=== PATIENT | female | born 1945 | race Caucasian/White ===

== ENCOUNTER → 2016-11-12 | Outpatient (CLI) | payer MEDICARE, OTHER ==
[2016-11-12 13:30] VITALS: BP 129/80
[2016-11-12 14:10] VITALS: BP 129/80
[2016-11-12 16:24] LABS: Urine Bilirubin Negative (Negative); Urine Blood Negative /uL (Negative); Urine Color Yellow (Yellow); Urine Glucose Normal (Normal); Urine Ketone Negative (Negative); Urine Nitrite Negative (Negative); Urine Urobilinogen Normal (Negative)
[2016-11-12 16:28] LABS: Basophils # (auto) 0.1 uL; Eosinophils # (auto) 0.2 uL; Eosinophils % (auto) 3.2 % (0.0-7.0); Hematocrit 43.7 % (36.0-46.0); Hemoglobin 14.5 g/dL (12.2-16.2); Lymphocytes # (auto) 2.2 uL; Lymphocytes % (auto) 28.3 % (10.0-50.0); Mean Corpuscular Hemoglobin 28.8 pg (28.0-32.0); Mean Platelet Volume 8.4 fL (6.9-10.8); Monocytes # (auto) 0.8 uL; Monocytes % (auto) 11.1 % (0.0-12.0); Neutrophils # (auto) 4.3 uL; Neutrophils % (auto) 56.4 % (37.0-80.0); Nucleated Red Blood Cells % 0.2 %; Platelet Count (auto) 258 10^3/uL (140-450); Red Cell Distribution Width 15.4 % (11.8-14.3); White Blood Cell 7.7 10^3/uL (4.4-10.8)
== END | disposition home or self-care (01) ==
LOC: CHF HDHVI 13:43
PROVIDERS: ATTEND Internal Medicine Cardiovascular Disease
DX: N39.0 Urinary tract infection, site not specified (principal); D64.9 Anemia, unspecified
CPT/HCPCS: 36415; 81003; 85025; 87086; G0463

== ENCOUNTER 2023-08-26 14:09 | Inpatient (IN) | payer MEDICARE, OTHER ==
[~2023-08-26] VITALS: Ht 171.4 cm; Wt 83.3 kg
[~2023-08-26 14:09] MED LIST: ACET300T58 PO; MUPI2OIN2 EXT; SULF1TAB75 PO
[2023-08-26] MEDS: SODIUM CHLORIDE 0.9% 1,000 ML IV ONE (14:45)
[2023-08-26 15:57] LABS: Basophils # (auto) 0.1 10 ^3/uL (0-0.2); Basophils % (auto) 0.8 % (0.0-2.0); Eosinophils # (auto) 0.1 10 ^3/uL (0-0.8); Eosinophils % (auto) 0.7 % (0.0-7.0); Hematocrit 42.9 % (36.0-46.0); Lymphocytes # (auto) 1.4 10 ^3/uL (0.4-5.4); Mean Corpuscular Hgb Conc. 32.6 g/dL (32.0-36.0); Mean Corpuscular Volume 82.8 fL (80.0-100.0); Monocytes # (auto) 2.1 10 ^3/uL (0-1.3); Monocytes % (auto) 14.5 % (0.0-12.0); Neutrophils # (auto) 10.6 10 ^3/uL (1.6-8.6); Nucleated Red Blood Cells % 0.1 %; Red Blood Cells 5.19 10^6/uL (4.0-5.20); Red Cell Distribution Width 16.9 % (11.8-14.3); White Blood Cell 14.4 10^3/uL (4.4-10.8)
[2023-08-26 16:16] LABS: Chloride 99 mmol/L (98-107); Potassium 3.6 mmol/L (3.5-5.1); Sodium 130 mmol/L (136-145)
[2023-08-26 16:17] LABS: Anion Gap 10 (5-15); Carbon Dioxide 21 mmol/L (20-30)
[2023-08-26 16:18] LABS: Calcium 9.3 mg/dL (8.5-10.1)
[2023-08-26 16:22] LABS: Glucose 122 mg/dL (74-106)
[2023-08-26 16:23] LABS: BUN/Creatinine Ratio 18.6 (10.0-20.0); Blood Urea Nitrogen 35 mg/dL (9-23)
[2023-08-26] MEDS ORDERED: SODIUM CHLORIDE 0.9% 1,000 ML IV ONE (17:00)
[2023-08-26] MEDS: SODIUM CHLORIDE 0.9% 850 ML IV ONE (17:19)
[2023-08-26] MEDS: SODIUM CHLORIDE 0.9% 1,850 ML IV ONE (17:19)
[2023-08-26] MEDS: VANCOMYCIN 1GM/200ML 200 ML IV ONE (17:19)
[2023-08-26] MEDS: SODIUM CHLORIDE 0.9% IV ONE (17:36)
[2023-08-26 18:01] VITALS: PULSE 20; RESP 20; O2SAT 96
[2023-08-26] MEDS: dilTIAZem 25 MG/5 ML VIAL IV ONE (19:18)
[2023-08-26 19:29] LABS: Urine Bacteria FEW /hpf (None Seen); Urine Blood Negative /uL (Negative); Urine Clarity Turbid (Clear); Urine Color Light-Yellow (Yellow); Urine Mucus FEW (None Seen); Urine Protein, UAD Negative (Negative); Urine Specific Gravity 1.011 (1.001-1.035); Urine Urobilinogen Normal (Negative); Urine WBC 11 /hpf (0 - 5)
[2023-08-26 19:30] VITALS: PULSE 80; RESP 22; O2SAT 93
[2023-08-27] VITALS (9 sets, daily range): BP systolic 85–114; BP diastolic 47–68; PULSE 74–91; RESP 16–22; TEMP 97.8–99.3; O2SAT 92–98
[2023-08-27] MEDS ORDERED: MORPHINE SULFATE INJ 2 MG/ml SYRG IV PRN
[2023-08-27] MEDS ORDERED: HYDROcodone-ACET 5/325MG TAB PO PRN
[2023-08-27] MEDS ORDERED: ACETAMINOPHEN 325 MG TAB PO PRN
[2023-08-27] MEDS ORDERED: ONDANSETRON HCL 4 MG/2 ML VIAL IV PRN
[2023-08-27] MEDS ORDERED: NITROGLYCERIN 0.4 MG SL TAB SL PRN
[2023-08-27] MEDS: ALBUMIN 5% 250 ML IV ONE (00:27)
[2023-08-27] MEDS: COLCHICINE 0.6 MG CAP PO ONE (00:27)
[2023-08-27] MEDS: cefTRIAXone 1GM/50ML D5W 50 ML IV SCH (01:22)
[2023-08-27] MEDS ORDERED: FURO20TA3 PO (04:49)
[2023-08-27] MEDS ORDERED: CHOL20TA PO (04:49)
[2023-08-27] MEDS ORDERED: METO-289 PO (04:49)
[2023-08-27 05:57] LABS: Basophils # (auto) 0.1 10 ^3/uL (0-0.2); Eosinophils # (auto) 0.1 10 ^3/uL (0-0.8); Hemoglobin 11.7 g/dL (12.2-16.2); Lymphocytes # (auto) 1.1 10 ^3/uL (0.4-5.4)
[2023-08-27 06:00] LABS: Basophils % (auto) 0.7 % (0.0-2.0); Eosinophils % (auto) 0.8 % (0.0-7.0); Hematocrit 36.3 % (36.0-46.0); Lymphocytes % (auto) 8.1 % (10.0-50.0); Mean Corpuscular Hemoglobin 26.5 pg (28.0-32.0); Mean Corpuscular Hgb Conc. 32.3 g/dL (32.0-36.0); Monocytes # (auto) 1.7 10 ^3/uL (0-1.3); Monocytes % (auto) 13.1 % (0.0-12.0); Neutrophils # (auto) 10.2 10 ^3/uL (1.6-8.6); Neutrophils % (auto) 77.3 % (37.0-80.0); Red Blood Cells 4.42 10^6/uL (4.0-5.20); Red Cell Distribution Width 17.2 % (11.8-14.3); White Blood Cell 13.2 10^3/uL (4.4-10.8)
[2023-08-27 06:24] LABS: Alanine Aminotransferase 25 U/L (7-40); Albumin 3.3 g/dL (3.2-4.8); Alkaline Phosphatase 98 U/L (46-116); Anion Gap 11 (5-15); Aspartate Aminotransferase 23 U/L (13-40); BUN/Creatinine Ratio 20.8 (10.0-20.0); Bilirubin, Total 0.9 mg/dL (0.2-1.0); Blood Urea Nitrogen 30 mg/dL (9-23); Calcium 8.9 mg/dL (8.7-10.4); Carbon Dioxide 17 mmol/L (20-30); Chloride 103 mmol/L (98-107); Glucose 101 mg/dL (74-106); Potassium 3.4 mmol/L (3.5-5.1); Sodium 131 mmol/L (136-145)
[2023-08-27 07:04] LABS: Total Protein 5.6 g/dL (5.7-8.2)
[2023-08-27] MEDS: FUROSEMIDE 20 MG TAB PO SCH (10:00)
[2023-08-27] MEDS: METOPROLOL SUCCINATE XL 50 MG TAB PO SCH (10:00)
[2023-08-27] MEDS ORDERED: ENOXAPARIN SOD 80 MG/0.8ML SYRINGE SC SCH (10:00)
[2023-08-27] MEDS ORDERED: COLCHICINE 0.6 MG CAP PO SCH (10:00)
[2023-08-27 11:16] LABS: INR 1.13 (0.9-1.15); Partial Thromboplastin Time 28.2 SEC (24.5-34.5); Prothrombin Time 11.9 sec (9.3-11.8)
[2023-08-27] MEDS: predniSONE 20 MG TAB PO ONE (12:58)
[2023-08-27] MEDS: ENOXAPARIN SOD 80 MG/0.8ML SYRINGE SC SCH (12:59)
[2023-08-27] MEDS: POTASSIUM EFFERVESENT TAB 25 MEQ PO ONE (12:59)
[2023-08-27] MEDS ORDERED: PIPERACILLIN-TAZOB 3.375GM 100 ML IV SCH (14:00)
[2023-08-27 14:17] LABS: Rapid Influenza A Negative (Negative); Rapid Influenza B Negative (Negative)
[2023-08-27 14:18] LABS: COVID19 ANTIGEN SOFIA FIA NEGATIVE (NEGATIVE)
[2023-08-27] MEDS: SODIUM BICARB 50mEq/50ml Vial 50 ML in SOD CHL 0.45% 1,000 ML IV SCH (22:54)
[2023-08-27 23:09] LABS: Urine Bacteria FEW /hpf (None Seen); Urine Blood Negative /uL (Negative); Urine Clarity Clear (Clear); Urine Color Yellow (Yellow); Urine Protein, UAD Negative (Negative); Urine Specific Gravity 1.014 (1.001-1.035); Urine Urobilinogen Normal (Negative); Urine WBC 11 /hpf (0 - 5); Urine pH 5.5 (5.0-9.0)
[2023-08-27 23:34] LABS: Sodium Urine < 10 mmol/L (40-220)
[2023-08-27 23:39] LABS: Protein, Urine 20.4 mg/dL (0.0-11.9)
[2023-08-27 23:40] LABS: Amphetamine Screen, Urine Pos (NEGATIVE); Barbiturate Scree,Urine Neg (NEGATIVE); Benzodiazephine Screen, Urine Neg (NEGATIVE)
[2023-08-27 23:41] LABS: Cannabinoid Screen, Urine Neg (NEGATIVE); Cocaine Screen, Urine Neg (NEGATIVE); Creatinine, Urine 70.55 mg/dL (30.0-125.0); Opiate Scree,Urine Pos (NEGATIVE); Phencyclidine Screen, Urine Neg (NEGATIVE); Urine Protein/Creatinine Ratio 0.29
[2023-08-28] VITALS (10 sets, daily range): BP systolic 92–101; BP diastolic 54–70; PULSE 42–150; RESP 16–19; TEMP 97.2–98.2; O2SAT 94–98
[2023-08-28 06:30] LABS: Eosinophils # (auto) 0 10 ^3/uL (0-0.8); Eosinophils % (auto) 0.1 % (0.0-7.0); Hemoglobin 12.1 g/dL (12.2-16.2); Monocytes # (auto) 1.2 10 ^3/uL (0-1.3); Monocytes % (auto) 10.4 % (0.0-12.0); Nucleated Red Blood Cells % 0.1 %; White Blood Cell 11.7 10^3/uL (4.4-10.8)
[2023-08-28 06:31] LABS: Anion Gap 7 (5-15); Carbon Dioxide 23 mmol/L (20-30); Chloride 105 mmol/L (98-107); Potassium 3.8 mmol/L (3.5-5.1); Sodium 135 mmol/L (136-145)
[2023-08-28 06:32] LABS: Basophils # (auto) 0 10 ^3/uL (0-0.2); Basophils % (auto) 0.3 % (0.0-2.0); Calcium 9.5 mg/dL (8.7-10.4); Hematocrit 36.4 % (36.0-46.0); Lymphocytes % (auto) 8.7 % (10.0-50.0); Mean Corpuscular Hemoglobin 27.2 pg (28.0-32.0); Mean Corpuscular Hgb Conc. 33.1 g/dL (32.0-36.0); Mean Corpuscular Volume 82.2 fL (80.0-100.0); Neutrophils # (auto) 9.4 10 ^3/uL (1.6-8.6); Neutrophils % (auto) 80.5 % (37.0-80.0); Red Blood Cells 4.43 10^6/uL (4.0-5.20); Red Cell Distribution Width 17.3 % (11.8-14.3)
[2023-08-28 06:37] LABS: Blood Urea Nitrogen 29 mg/dL (9-23); Glucose 139 mg/dL (74-106)
[2023-08-28] MEDS: predniSONE 20 MG TAB PO SCH (10:02)
[2023-08-28 11:07] LABS: Anti-Nuclear Antibody Direct Negative (Negative)
[2023-08-28] MEDS ORDERED: MELO15TA29 PO (15:34)
[2023-08-29] VITALS (9 sets, daily range): BP systolic 93–105; BP diastolic 61–66; PULSE 62–136; RESP 16–18; TEMP 97.3–97.8; O2SAT 94–98
[2023-08-29 06:39] LABS: Basophils # (auto) 0.1 10 ^3/uL (0-0.2); Eosinophils # (auto) 0 10 ^3/uL (0-0.8); Monocytes # (auto) 1.2 10 ^3/uL (0-1.3)
[2023-08-29 06:42] LABS: Basophils % (auto) 0.5 % (0.0-2.0); Eosinophils % (auto) 0.2 % (0.0-7.0); Hematocrit 36.2 % (36.0-46.0); Hemoglobin 11.8 g/dL (12.2-16.2); Lymphocytes # (auto) 1.6 10 ^3/uL (0.4-5.4); Lymphocytes % (auto) 12.4 % (10.0-50.0); Mean Corpuscular Hemoglobin 26.8 pg (28.0-32.0); Mean Corpuscular Hgb Conc. 32.6 g/dL (32.0-36.0); Mean Corpuscular Volume 82.4 fL (80.0-100.0); Monocytes % (auto) 9.8 % (0.0-12.0); Neutrophils # (auto) 9.8 10 ^3/uL (1.6-8.6); Neutrophils % (auto) 77.1 % (37.0-80.0); Red Cell Distribution Width 17.7 % (11.8-14.3); White Blood Cell 12.7 10^3/uL (4.4-10.8)
[2023-08-29 07:12] LABS: Anion Gap 5 (5-15); Calcium 9.5 mg/dL (8.7-10.4); Carbon Dioxide 26 mmol/L (20-30); Chloride 107 mmol/L (98-107); Potassium 4.3 mmol/L (3.5-5.1); Sodium 138 mmol/L (136-145)
[2023-08-29 07:18] LABS: BUN/Creatinine Ratio 34.6 (10.0-20.0); Glucose 112 mg/dL (74-106)
[2023-08-29 07:22] LABS: Blood Urea Nitrogen 45 mg/dL (9-23)
[2023-08-29 14:06] LABS: CCP IgG/IgA Antibody 17 units (0-19)
[2023-08-29] MEDS: ALLOPURINOL 100 MG TAB PO ONE (15:19)
[2023-08-30] VITALS (7 sets, daily range): BP systolic 89–105; BP diastolic 38–63; PULSE 69–103; RESP 17–18; TEMP 97.4–97.7; O2SAT 94–98
[2023-08-30] MEDS: ALLOPURINOL 100 MG TAB PO SCH (09:15)
[2023-08-30] MEDS ORDERED: SODIUM CHLORIDE 0.9% 1,000 ML IV SCH (09:45)
[2023-08-30] MEDS: PANTOPRAZOLE 40mg/50ML NS AE 50 ML IV SCH (10:06)
[2023-08-30] MEDS: PANTOPRAZOLE 40 MG/10 ML VIAL INJ IV ONE (10:06)
[2023-08-30] MEDS: SODIUM CHLORIDE 0.9% 1,000 ML IV SCH (10:06)
[2023-08-30 11:26] LABS: Hematocrit 23.6 % (36.0-46.0); Hemoglobin 7.7 g/dL (12.2-16.2); Mean Corpuscular Hemoglobin 27.2 pg (28.0-32.0); Mean Corpuscular Hgb Conc. 32.4 g/dL (32.0-36.0); Red Blood Cells 2.81 10^6/uL (4.0-5.20); Red Cell Distribution Width 17.3 % (11.8-14.3); White Blood Cell 15.7 10^3/uL (4.4-10.8)
[2023-08-30 11:36] LABS: Basophils % (manual) 0 (0.0-2.0); Blast Cells 0; Eosinophils % (manual) 0 (0-7); Myelocytes % 0; Promyelocytes % 0; Reactive Lymphocytes 0
[2023-08-30 11:37] LABS: % Iron Saturation 31.5 % (15-50); Alanine Aminotransferase 30 U/L (7-40); Albumin 2.7 g/dL (3.2-4.8); Alkaline Phosphatase 67 U/L (46-116); Anion Gap 7 (5-15); Aspartate Aminotransferase 27 U/L (13-40); Bilirubin, Total 0.2 mg/dL (0.2-1.0); Calcium 8.6 mg/dL (8.5-10.1); Carbon Dioxide 21 mmol/L (20-30); Chloride 111 mmol/L (98-107); Glucose 126 mg/dL (74-106); Potassium 4.1 mmol/L (3.5-5.1); Sodium 139 mmol/L (136-145); Total Protein 4.5 g/dL (5.7-8.2)
[2023-08-30 11:40] LABS: Blood Urea Nitrogen 64 mg/dL (9-23); Ferritin 83.3 ng/mL (10-291)
[2023-08-30 12:10] LABS: Band Neutrophils % (manual) 2; Lymphocytes % (manual) 15 (10.0-50.0); Metamyelocytes % 1; Monocytes % (manual) 13 (0-12); Platelet Estimate Increased
[2023-08-30 12:11] LABS: RBC Morphology Normal
[2023-08-30 17:46] LABS: Basophils # (auto) 0 10 ^3/uL (0-0.2); Eosinophils # (auto) 0 10 ^3/uL (0-0.8); Hemoglobin 7.6 g/dL (12.2-16.2); Monocytes # (auto) 0.6 10 ^3/uL (0-1.3)
[2023-08-30 17:48] LABS: Basophils % (auto) 0.2 % (0.0-2.0); Hematocrit 23.7 % (36.0-46.0); Lymphocytes # (auto) 1.4 10 ^3/uL (0.4-5.4); Lymphocytes % (auto) 10.7 % (10.0-50.0); Mean Corpuscular Hemoglobin 26.8 pg (28.0-32.0); Mean Corpuscular Hgb Conc. 32.1 g/dL (32.0-36.0); Mean Corpuscular Volume 83.6 fL (80.0-100.0); Monocytes % (auto) 4.5 % (0.0-12.0); Neutrophils % (auto) 84.6 % (37.0-80.0); Nucleated Red Blood Cells % 0.1 %; Red Blood Cells 2.84 10^6/uL (4.0-5.20); Red Cell Distribution Width 17.4 % (11.8-14.3); White Blood Cell 13.1 10^3/uL (4.4-10.8)
[2023-08-30 17:55] LABS: Chloride 113 mmol/L (98-107); Potassium 4.2 mmol/L (3.5-5.1); Sodium 140 mmol/L (136-145)
[2023-08-30 17:56] LABS: Anion Gap 6 (5-15); Calcium 8.7 mg/dL (8.5-10.1); Carbon Dioxide 21 mmol/L (20-30)
[2023-08-30 18:01] LABS: BUN/Creatinine Ratio 78.8 (10.0-20.0); Glucose 146 mg/dL (74-106)
[2023-08-30 18:07] LABS: Blood Urea Nitrogen 78 mg/dL (9-23)
[2023-08-30] MEDS: PANTOPRAZOLE 40 MG/10 ML VIAL INJ IV SCH (21:39)
[2023-08-31] VITALS (9 sets, daily range): BP systolic 85–99; BP diastolic 41–53; PULSE 67–88; RESP 17–19; TEMP 97.4–98.6; O2SAT 93–100
[2023-08-31 07:20] LABS: Basophils # (auto) 0.1 10 ^3/uL (0-0.2); Basophils % (auto) 0.4 % (0.0-2.0); Eosinophils # (auto) 0.1 10 ^3/uL (0-0.8); Lymphocytes # (auto) 2.2 10 ^3/uL (0.4-5.4); Nucleated Red Blood Cells % 0.2 %
[2023-08-31 07:22] LABS: Eosinophils % (auto) 0.4 % (0.0-7.0); Hematocrit 20.5 % (36.0-46.0); Lymphocytes % (auto) 14.4 % (10.0-50.0); Mean Corpuscular Hemoglobin 27.2 pg (28.0-32.0); Mean Corpuscular Hgb Conc. 32.3 g/dL (32.0-36.0); Mean Corpuscular Volume 84.2 fL (80.0-100.0); Monocytes # (auto) 1.1 10 ^3/uL (0-1.3); Monocytes % (auto) 7.3 % (0.0-12.0); Neutrophils # (auto) 11.8 10 ^3/uL (1.6-8.6); Neutrophils % (auto) 77.5 % (37.0-80.0); Red Blood Cells 2.44 10^6/uL (4.0-5.20); Red Cell Distribution Width 17.7 % (11.8-14.3); White Blood Cell 15.2 10^3/uL (4.4-10.8)
[2023-08-31 07:33] LABS: INR 1.08 (0.9-1.15); Prothrombin Time 11.4 sec (9.3-11.8)
[2023-08-31 07:34] LABS: Hemoglobin 6.6 g/dL (12.2-16.2)
[2023-08-31 07:58] LABS: Alanine Aminotransferase 51 U/L (7-40); Albumin 2.8 g/dL (3.2-4.8); Alkaline Phosphatase 63 U/L (46-116); Anion Gap 4 (5-15); Aspartate Aminotransferase 66 U/L (13-40); BUN/Creatinine Ratio 69.8 (10.0-20.0); Bilirubin, Total 0.2 mg/dL (0.2-1.0); Calcium 8.8 mg/dL (8.5-10.1); Carbon Dioxide 23 mmol/L (20-30); Chloride 118 mmol/L (98-107); Glucose 92 mg/dL (74-106); Ovalocytes FEW; Potassium 4.1 mmol/L (3.5-5.1); Total Protein 4.5 g/dL (5.7-8.2)
[2023-08-31 07:59] LABS: Blood Urea Nitrogen 67 mg/dL (9-23); Large Platelets FEW; Platelet Estimate Adequa; Sodium 145 mmol/L (136-145)
[2023-08-31] MEDS ORDERED: MORPHINE SULFATE INJ 2 MG/ml SYRG IV PRN (09:15)
[2023-08-31] MEDS ORDERED: METOCLOPRAMIDE HCL 5MG/ml INJ 2ml VIAL IV ONE (09:15)
[2023-08-31] MEDS ORDERED: HYDROmorphone HCL 2 MG/ML VL/or syr IV PRN ×2 (09:15)
[2023-08-31] MEDS ORDERED: EPINEPHrine HCL 1 MG/10 ML SYRG ONE (09:36)
[2023-08-31] MEDS ORDERED: SODIUM CHLORIDE LOCK 10 ML ONE (09:37)
[2023-08-31] MEDS ORDERED: MIDAZOLAM HCL 2MG/2ML 2ml VIAL (1mg/ml) ONE (09:37)
[2023-08-31] MEDS ORDERED: LIDOCAINE 1% INJ PF 5ML AMP ONE (09:37)
[2023-08-31] MEDS ORDERED: PROPOFOL 10 MG/ML 20 ML IV ONE (09:37)
[2023-08-31] MEDS ORDERED: ONDANSETRON HCL 4 MG/2 ML VIAL ONE (09:37)
[2023-08-31] MEDS ORDERED: KETAMINE 50mg/ML 1ml syringe ONE (09:37)
[2023-08-31] MEDS ORDERED: fentaNYL CITRATE 100 MCG/2 ML VL ONE (09:41)
[2023-08-31] MEDS: SUCRALFATE 1 GM/10 ML ORAL SUSP GT SCH (12:00)
[2023-08-31 13:00] LABS: Folate (Folic Acid) 5.89 ng/mL (>5.38)
[2023-08-31] MEDS: LACTATED RINGER'S 1,000 ML IV ONE (18:00)
[2023-08-31] MEDS ORDERED: HALOPERIDOL LACTATE 5 MG/ML INJ VIAL ONE (22:46)
[2023-09-01] VITALS (7 sets, daily range): BP systolic 90–107; BP diastolic 49–64; PULSE 63–92; RESP 16–19; TEMP 97.2–98.1; O2SAT 92–100
[2023-09-01 06:56] LABS: Alanine Aminotransferase 90 U/L (7-40); Albumin 2.7 g/dL (3.2-4.8); Alkaline Phosphatase 64 U/L (46-116); Anion Gap 12 (5-15); Aspartate Aminotransferase 109 U/L (13-40); BUN/Creatinine Ratio 36.7 (10.0-20.0); Bilirubin, Total 0.4 mg/dL (0.2-1.0); Carbon Dioxide 16 mmol/L (20-30); Chloride 116 mmol/L (98-107); Glucose 84 mg/dL (74-106); Potassium 4.4 mmol/L (3.5-5.1); Sodium 144 mmol/L (136-145); Total Protein 4.4 g/dL (5.7-8.2)
[2023-09-01 06:58] LABS: Blood Urea Nitrogen 36 mg/dL (9-23)
[2023-09-01 07:05] LABS: Hemoglobin 7.4 g/dL (12.2-16.2)
[2023-09-01 07:08] LABS: Hematocrit 22.4 % (36.0-46.0); Mean Corpuscular Hemoglobin 28.8 pg (28.0-32.0); Mean Corpuscular Hgb Conc. 32.9 g/dL (32.0-36.0); Mean Corpuscular Volume 87.3 fL (80.0-100.0); Red Blood Cells 2.57 10^6/uL (4.0-5.20); Red Cell Distribution Width 17.7 % (11.8-14.3); White Blood Cell 10.3 10^3/uL (4.4-10.8)
[2023-09-01 07:12] LABS: Band Neutrophils % (manual) 0; Basophils % (manual) 0 (0.0-2.0); Blast Cells 0; Eosinophils % (manual) 0 (0-7); Metamyelocytes % 0; Myelocytes % 0; Promyelocytes % 0; Reactive Lymphocytes 0
[2023-09-01] MEDS: SODIUM CHLORIDE 0.9% 1,000 ML IV SCH (08:30)
[2023-09-01 09:39] LABS: Lymphocytes % (manual) 23 (10.0-50.0); Monocytes % (manual) 7 (0-12); Smudge Cells 3 /100 WBC
[2023-09-01 09:40] LABS: Platelet Estimate Adequate
[2023-09-01] MEDS ORDERED: IRON SUCROSE COMPLEX 100 ML IV SCH (14:13)
[2023-09-01] MEDS ORDERED: PANT40T PO (15:07)
[2023-09-01] MEDS ORDERED: CEPH500C PO (15:07)
[2023-09-01] MEDS ORDERED: ALL100T PO (15:07)
[2023-09-01] MEDS ORDERED: SUCR1SUS26 PO (15:07)
[2023-09-01 15:46] LABS: Basophils # (auto) 0.1 10 ^3/uL (0-0.2); Eosinophils # (auto) 0.2 10 ^3/uL (0-0.8); Monocytes # (auto) 0.7 10 ^3/uL (0-1.3); White Blood Cell 10.7 10^3/uL (4.4-10.8)
[2023-09-01 15:48] LABS: Basophils % (auto) 0.9 % (0.0-2.0); Eosinophils % (auto) 1.7 % (0.0-7.0); Hematocrit 25.3 % (36.0-46.0); Hemoglobin 8.4 g/dL (12.2-16.2); Lymphocytes # (auto) 2.6 10 ^3/uL (0.4-5.4); Lymphocytes % (auto) 23.9 % (10.0-50.0); Mean Corpuscular Hemoglobin 28.6 pg (28.0-32.0); Mean Corpuscular Hgb Conc. 33.1 g/dL (32.0-36.0); Mean Corpuscular Volume 86.3 fL (80.0-100.0); Monocytes % (auto) 6.8 % (0.0-12.0); Neutrophils # (auto) 7.1 10 ^3/uL (1.6-8.6); Neutrophils % (auto) 66.7 % (37.0-80.0); Nucleated Red Blood Cells % 0.7 %; Red Blood Cells 2.93 10^6/uL (4.0-5.20); Red Cell Distribution Width 17.2 % (11.8-14.3)
[2023-09-01] MEDS ORDERED: METOPROLOL TARTRATE 50 MG TAB PO ONE (16:00)
== END 2023-09-01 19:25 | disposition home or self-care (01) | DRG 602 ==
LOC: ER 14:09 → TELE 23:59 → TELE-CENTR 08-27 02:35
PROVIDERS: ADMIT Internal Medicine Pulmonary Disease; ATTEND Internal Medicine Pulmonary Disease
PROC: 0DB98ZX Excision of Duodenum, Via Natural or Artificial Opening Endoscopic, Diagnostic (ICD-10-PCS; 2023-08-31)
PROC: 0DB68ZX Excision of Stomach, Via Natural or Artificial Opening Endoscopic, Diagnostic (ICD-10-PCS; 2023-08-31)
PROC: 0DB58ZX Excision of Esophagus, Via Natural or Artificial Opening Endoscopic, Diagnostic (ICD-10-PCS; 2023-08-31)
PROC: 30233N1 Transfusion of Nonautologous Red Blood Cells into Peripheral Vein, Percutaneous Approach (ICD-10-PCS; principal; 2023-08-31 09:58)
DX: L03.012 Cellulitis of left finger (principal); I50.33 Acute on chronic diastolic (congestive) heart failure; K22.11 Ulcer of esophagus with bleeding; N17.0 Acute kidney failure with tubular necrosis; K25.4 Chronic or unspecified gastric ulcer with hemorrhage; K29.71 Gastritis, unspecified, with bleeding; K29.81 Duodenitis with bleeding; K26.4 Chronic or unspecified duodenal ulcer with hemorrhage; I48.20 Chronic atrial fibrillation, unspecified; N39.0 Urinary tract infection, site not specified; I42.7 Cardiomyopathy due to drug and external agent; M10.9 Gout, unspecified; I95.9 Hypotension, unspecified; N18.9 Chronic kidney disease, unspecified; E87.6 Hypokalemia; D64.9 Anemia, unspecified; Z20.822 Contact with and (suspected) exposure to COVID-19; R73.03 Prediabetes; I27.20 Pulmonary hypertension, unspecified; Z96.643 Presence of artificial hip joint, bilateral; F15.10 Other stimulant abuse, uncomplicated; E66.3 Overweight; K44.9 Diaphragmatic hernia without obstruction or gangrene; Z82.49 Family history of ischemic heart disease and other diseases of the circulatory system; Z68.28 Body mass index [BMI] 28.0-28.9, adult
CPT/HCPCS: 36415; 36430; 36600; 71045; 71046; 73120; 76775; 80048; 80053; 80307; 81001; 82306; 82570; 82728; 82746; 82805; 82962; 83010; 83540; 83550; 83605; 83735; 83880; 83935; 84100; 84156; 84300; 84443; 84484; 84550; 85007; 85025; 85027; 85045; 85610; 85730; 86038; 86200; 86431; 86850; 86900; 86901; 86920; 87040; 87081; 87426; 87804; 93005; 93306; 96361; 96365; 96366; 96375; G0378; J2250; J2405; J2470; J2704

== ENCOUNTER 2024-02-11 06:07 | Inpatient (IN) | payer MEDICARE, OTHER ==
[~2024-02-11] VITALS: Ht 170.2 cm; Wt 84.1 kg
[2024-02-11] VITALS (7 sets, daily range): BP systolic 106–126; BP diastolic 69–77; PULSE 118–142; RESP 12–19; TEMP 97.8–98.2; O2SAT 93–98
[~2024-02-11 06:07] MED LIST changes: -ACET300T58 PO; +ALL100T PO; +CEPH500C PO; +CHOL20TA PO; +FURO20TA3 PO; +FURO40TA4 PO; +MELO15TA29 PO; +METO-289 PO; -MUPI2OIN2 EXT; +PANT40T PO; +SIMV20TA20 PO; +SUCR1SUS26 PO; -SULF1TAB75 PO
--- NOTE | 2024-02-11 06:26 | ED.PDOC ---
SOB-HPI HPI Comments 78 year old female presents to the ED with chief complaint of SOB. Patient reports that she has been experiencing increased SOB with associated leg swelling since 2-3 hours ago. Patient relays that she has history of CHF and was on Lasix until her doctor in [place] changed her medication to Torsemide, which has made her intermittent SOB worse. Patient states she was admitted to [facility] in August for similar symptoms. Patient denies any chest pain, N/V, dizziness, headache, fever, chills, or cough. 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 Hx Family History Family History: Reviewed,noncontributory to illness Social History Smoker: Non-Smoker Alcohol: Denies ETOH Use Drugs: Denies Drug Use Lives In: Home Constitutional: denies: chills, diaphoresis, fatigue, fever, malaise, sweats, weakness, others EENTM: denies: blurred vision, double vision, ear bleeding, ear discharge, ear drainage, ear pain, ear ringing, eye pain, eye redness, hearing loss, mouth pain, mouth swelling, nasal discharge, nose bleeding, nose congestion, nose pain, photophobia, tearing, throat pain, throat swelling, voice changes, others Respiratory: reports: shortness of breath; denies: cough, hemoptysis, orthopnea, SOB at rest, SOB with excertion, stridor, wheezing, others Cardiovascular: reports: edema (Bilateral legs); denies: chest pain, dizzy spells, diaphoresis, Dyspnea on exertion, irregular heart beat, left arm pain, lightheadedness, palpitations, PND, syncope, others Gastrointestinal: denies: abdomen distended, abdominal pain, blood streaked bowels, constipated, diarrhea, dysphagia, difficulty swallowing, hematemesis, melena, nausea, poor appetite, poor fluid intake, rectal bleeding, rectal pain, vomiting, others Genitourinary: denies: abnormal vagina bleeding, burning, dyspareunia, dysuria, flank pain, frequency, hematuria, incontinence, pain, , vagina discharge, urgency, others Neurological: denies: dizziness, fainting, headache, left sided numbness, left sided weakness, numbness, paresthesia, pre-existing deficit, right sided numbness, right sided weakness, seizure, speech problems, tingling, tremors, weakness, others Musculoskeletal: denies: back pain, gout, joint pain, joint swelling, muscle pain, muscle stiffness, neck pain, others Integumetry: denies: bruises, change in color, change in hair/nails, dryness, laceration, lesions, lumps, rash, wounds, others Allergic/Immunocompromised: denies: Difficulty Healing, Frequent Infections, Hives, Itching, others Hematologic/Lymphatic: denies: anemia, blood clots, easy bleeding, easy bruising, swollen glands, others Endocrine: denies: excessive hunger, excessive sweating, excessive thirst, excessive urination, flushing, intolerance to cold, intolerance to heat, unexplained weight gain, unexplained weight loss, others Psychiatric: denies: anxiety, bipolar disorder, depression, hopeless, panic disorder, schizophrenia, sleepless, suicidal, others All Other Systems: Reviewed and Negative Physical Exam General Appearance: Moderate Distress, Normal HEENT: Normal ENT Inspection, PERRL/EOMI Neck: Full Range of Motion, Non-Tender, Normal, Normal Inspection Respiratory: Accessory Muscle Use, Chest Non-Tender, Respiratory Distress Cardiovascular: No Edema, No JVD, No Murmur, No Gallop, Normal Peripheral Pulses, Tachycardia Breast Exam: Deferred Gastrointestinal: No Organomegaly, Non Tender, No Pulsatile Mass, Normal Bowel Sounds, Soft Genitalia: Deferred Pelvic: Deferred Rectal: Deferred Extremities: No calf tenderness, Normal capillary refill, Normal range of motion, Non-tender, Pedal edema, Swelling (Bilateral lower extremity) Musculoskeletal : Apperance: Normal 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 Was a procedure done?: No Differential Dx Differential Diagnosis: Anxiety, Asthma, Bronchitis, CHF, COPD X-Ray, Labs, Meds, VS Vital Signs Date Time Temp Pulse Resp B/P (MAP) Pulse Ox O2 Delivery O2 Flow Rate FiO2 02/11/24 08:51 121 02/11/24 08:15 98.1 142 16 127/78 (94) 98 98.1 02/11/24 08:15 142 16 98 Nasal Cannula* 2 28 02/11/24 08:00 127 02/11/24 06:58 142/85 02/11/24 06:50 Room Air* 0 21 02/11/24 06:44 139 16 142/85 (104) 96 02/11/24 06:24 143 02/11/24 06:24 98.3 141 22 135/92 (106) 98 02/11/24 06:24 98 Room Air* 0 21 Lab Test 02/11/24 07:30 02/11/24 06:31 Range/Units Urine Color Colorless Yellow Urine Clarity Clear Clear Urine pH 7.0 5.0-9.0 Urine Specific [place] 1.002 1.001-1.035 Urine Protein Negative Negative Urine Ketones Negative Negative Urine Blood Negative Negative /uL Urine Nitrite Negative Negative Urine Bilirubin Negative Negative Urine Urobilinogen Normal Negative mg/dL Urine Leukocyte Esterase Negative Negative /uL Urine RBC None seen 0 - 4 /hpf Urine WBC <1 0 - 5 /hpf Urine Squamous Epithelial Cells Few <5 /hpf Urine Bacteria None seen None Seen /hpf Urine Glucose Normal Normal mg/dL Urine Opiates Screen Pos NEGATIVE Urine Fentanyl Screen Pos NEGATIVE Urine Barbiturates Screen Neg NEGATIVE Urine Phencyclidine Screen Neg NEGATIVE Urine Amphetamines Screen Neg NEGATIVE Urine Benzodiazepines Screen Neg NEGATIVE Urine Cocaine Screen Neg NEGATIVE Urine Cannabinoids Screen Pos NEGATIVE White Blood Count 8.3 4.4-10.8 10^3/uL Red Blood Count 3.64 L 4.0-5.20 10^6/uL Hemoglobin 6.9 *L 12.2-16.2 g/dL Hematocrit 22.9 L 36.0-46.0 % Mean Corpuscular Volume 62.9 L 80.0-100.0 fL Mean Corpuscular Hemoglobin 18.9 L 28.0-32.0 pg Mean Corpuscular Hemoglobin Concent 30.0 L 32.0-36.0 g/dL Red Cell Distribution Width 18.9 H 11.8-14.3 % Platelet Count 354 140-450 10^3/uL Mean Platelet Volume 7.0 6.9-10.8 fL Neutrophils (%) (Auto) 60.7 37.0-80.0 % Lymphocytes (%) (Auto) 18.4 10.0-50.0 % Monocytes (%) (Auto) 14.7 H 0.0-12.0 % Eosinophils (%) (Auto) 4.5 0.0-7.0 % Basophils (%) (Auto) 1.7 0.0-2.0 % Neutrophils # (Auto) 5.0 1.6-8.6 10 ^3/uL Lymphocytes # (Auto) 1.5 0.4-5.4 10 ^3/uL Monocytes # (Auto) 1.2 0-1.3 10 ^3/uL Eosinophils # (Auto) 0.4 0-0.8 10 ^3/uL Basophils # (Auto) 0.1 0-0.2 10 ^3/uL Nucleated Red Blood Cells 0.1 % Platelet Estimate Adequate Hypochromasia (manual) Moderate Anisocytosis (manual) Slight Microcytosis Moderate Reticulocyte Count (auto) 2.00 H 0.5-1.5 % Sodium Level 141 136-145 mmol/L Potassium Level 3.7 3.5-5.1 mmol/L Chloride Level 106 98-107 mmol/L Carbon Dioxide Level 26 20-31 mmol/L Anion Gap 9 5-15 Blood Urea Nitrogen 35 H 9-23 mg/dL Creatinine 1.59 H 0.550-1.02 mg/dL Glomerular Filtration Rate Calc 33 >90 mL/min BUN/Creatinine Ratio 22.0 H 10.0-20.0 Serum Glucose 111 H 74-106 mg/dL Calcium Level 9.9 8.7-10.4 mg/dL Iron Level 19 L 50-170 ug/dL Total Iron Binding Capacity 418 250-425 ug/dL Percent Iron Saturation 4.5 L 15-50 % Ferritin 8.5 L 10-291 ng/mL Lactate Dehydrogenase 271 H 120-246 U/L Troponin I High Sensitivity 12 </=34 ng/L B-Type Natriuretic Peptide 839.69 0-100 pg/mL Vitamin B12 Level 702 211-911 pg/mL Folic Acid 9.63 >5.38 ng/mL Current Medications Medications (Trade) Dose Ordered Sig/Elvin Route Start Time Stop Time Status Last Admin Furosemide (Lasix Injection) 40 mg ONCE ONCE IV 02/11/24 06:30 02/11/24 06:31 DC 02/11/24 06:58 Adenosine (Adenosine) 6 mg ONCE ONCE IV 02/11/24 08:30 02/11/24 08:31 DC 02/11/24 08:27 Adenosine (Adenosine) 12 mg ONCE ONCE IV 02/11/24 08:45 02/11/24 08:46 DC 02/11/24 08:38 Amiodarone HCl 100 ml @ 618 mls/hr ONCE ONCE IV 02/11/24 08:45 02/11/24 08:54 DC 02/11/24 08:50 Amiodarone HCl 250 ml @ 33.333 mls/ hr Q7H30M IV 02/11/24 09:00 02/11/24 14:59 DC 02/11/24 09:01 Patient alert. Complaining of shortness a breath. Was given Lasix. Tachycardia. History of pulmonary hypertension. She has bilateral lower extremity swelling. Clinical respiratory distress. Possible pneumonitis. CHF exacerbation. Reviewed her previous visit. Explained to the family. Continue cardiac monitoring. EKG reviewed shows tachycardia. Chest x-ray reviewed does not show any acute process. Cardiac rhythm continues to be elevated. Was given adenosine. Underlying rhythm was atrial fibrillation with flutter. Started amiodarone. Echo. Cardiology consultation. Chest XR: FINDINGS: Lines and Tubes: None Lungs: No focal consolidation. Pleura: No effusion. No pneumothorax. Cardiomediastinal contours: Cardiomegaly. Bones: No acute osseous abnormality. IMPRESSION: 1. No acute cardiopulmonary disease. Images Reviewed?: Images reviewed and evaluated by me Time of 1ST Reevaluation: 07:22 Reevaluation 1ST: Unchanged Patient Education/Counseling: Diagnosis, Treatment Family Education/Counseling: Diagnosis, Treatment Additional Information I reviewed the following notes from patient's past medical encounters: 08/26/23 for Afib W/ RVR and Hypotension The following tests were ordered, and results were reviewed by me: Chest XR, Echocardiogram, RBC Morphology, BMP, CBC, UA, Troponin, BNP I reviewed and agreed with the following test results read by other providers: Chest XR I discussed treatment and results with medical personnel. Departure 1 Departure Time of Disposition: 07:04 Impression: Primary Impression: CHF exacerbation Qualified Codes: I50.43 - Acute on chronic combined systolic (congestive) and diastolic (congestive) heart failure Additional Impression: Atrial fibrillation and flutter Disposition: ADMITTED INPATIENT Admit to: Med Surg Condition: Guarded Critical Care Note Critical Care Time?: Yes (90 min-critical care time only) Stability Stability form required: No Heart Score Heart Score: Heart Score Response (Comments) Value History Moderate Suspicious 1 EKG Normal 0 Age >65 2 Risk Factors >3 or Hx ASHD 2 Troponin Normal limit 0 Total 5 I personally scribed for NII GARZA MD ([email or web address]) on 02/11/24 at 06:26. Electronically submitted by De Romeo ([email or web address]). I personally scribed for NII GARZA MD ([email or web address]) on 02/11/24 at 07:07. Electronically submitted by De Romeo ([email or web address]). I personally scribed for NII GARZA MD ([email or web address]) on 02/11/24 at 15:46. Electronically submitted by De Romeo ([email or web address]). NII GARZA MD Feb 11, 2024 06:26
[2024-02-11] MEDS: FUROSEMIDE 40 MG/4 ML VIAL IV ONE (06:58)
--- NOTE | 2024-02-11 07:00 | DVH ---
CHEST RADIOGRAPH Indication: sob Technique: Single frontal view of the chest was obtained Comparison: XY CHEST PORTABLE on DOS: 08/28/23 FINDINGS: Lines and Tubes: None Lungs: No focal consolidation. Pleura: No effusion. No pneumothorax. Cardiomediastinal contours: Cardiomegaly. Bones: No acute osseous abnormality. IMPRESSION: 1. No acute cardiopulmonary disease.
[2024-02-11 07:12] LABS: Chloride 106 mmol/L (98-107); Potassium 3.7 mmol/L (3.5-5.1); Sodium 141 mmol/L (136-145)
[2024-02-11 07:13] LABS: Anion Gap 9 (5-15); Calcium 9.9 mg/dL (8.7-10.4); Carbon Dioxide 26 mmol/L (20-31); Eosinophils # (auto) 0.4 10 ^3/uL (0-0.8); Lymphocytes # (auto) 1.5 10 ^3/uL (0.4-5.4); Nucleated Red Blood Cells % 0.1 %; White Blood Cell 8.3 10^3/uL (4.4-10.8)
[2024-02-11 07:23] LABS: Blood Urea Nitrogen 35 mg/dL (9-23); Glucose 111 mg/dL (74-106)
[2024-02-11 07:24] LABS: Basophils # (auto) 0.1 10 ^3/uL (0-0.2); Basophils % (auto) 1.7 % (0.0-2.0); Eosinophils % (auto) 4.5 % (0.0-7.0); Hematocrit 22.9 % (36.0-46.0); Lymphocytes % (auto) 18.4 % (10.0-50.0); Mean Corpuscular Hemoglobin 18.9 pg (28.0-32.0); Mean Corpuscular Volume 62.9 fL (80.0-100.0); Monocytes # (auto) 1.2 10 ^3/uL (0-1.3); Monocytes % (auto) 14.7 % (0.0-12.0); Neutrophils % (auto) 60.7 % (37.0-80.0); Platelet Count (auto) 354 10^3/uL (140-450); Red Blood Cells 3.64 10^6/uL (4.0-5.20); Red Cell Distribution Width 18.9 % (11.8-14.3)
[2024-02-11 07:42] LABS: Hemoglobin 6.9 g/dL (12.2-16.2)
[2024-02-11 08:17] LABS: Urine Bacteria None Seen /hpf (None Seen)
[2024-02-11 08:25] LABS: Anisocytosis Slight
[2024-02-11 08:26] LABS: Hypochromia Moderate; Platelet Estimate Adequate
[2024-02-11] MEDS: ADENOSINE 6 MG/2 ML INJ IV ONE ×3 (08:27→08:44)
[2024-02-11 08:36] LABS: Urine Blood Negative /uL (Negative); Urine Clarity Clear (Clear); Urine Color Colorless (Yellow); Urine Protein, UAD Negative (Negative); Urine Specific Gravity 1.002 (1.001-1.035); Urine Urobilinogen Normal (Negative); Urine WBC <1 /hpf (0 - 5)
[2024-02-11] MEDS: AMIODARONE BOLUS KIT 100 ML IV ONE (08:50)
[2024-02-11] MEDS: AMIODARONE 450mg/250ml AE 250 ML IV SCH ×2 (09:01→15:09)
[2024-02-11] MEDS ORDERED: ONDANSETRON HCL 4 MG/2 ML VIAL IV PRN (09:45)
[2024-02-11] MEDS ORDERED: ACETAMINOPHEN 325 MG TAB PO PRN (09:45)
[2024-02-11] MEDS ORDERED: HYDROcodone-ACET 5/325MG TAB PO PRN (09:45)
[2024-02-11] MEDS ORDERED: METO25TA93 PO (09:49)
[2024-02-11] MEDS ORDERED: ASPI-325 PO (09:49)
[2024-02-11] MEDS ORDERED: TORS20TA19 PO (09:50)
--- NOTE | 2024-02-11 10:12 | DVHHP2 ---
History of Present Illness Reason for Visit: Shortness of breath History of Present Illness Pippa Roe is a 78-year-old female with past medical history of pulmonary hypertension, anemia, arthritis, gout, CHF, and hypertension, who came to the hospital due to shortness of breath. Patient states that her shortness of breath began about 2 weeks ago when her hair specialist took her off her Lasix and started her on Torsemide. She states that over the last 2 weeks her shortness of breath and bilateral lower extremity edema has been worsening. She is typically able to go grocery shopping and do chores around the house without any issues, but she recently had to ask for help loading her car at the grocery store, and is becoming short of breath with minimal activity at home. This morning about 0300 she was awoken with shortness of breath and unable to go back to sleep prompting her to come to the hospital. Patient was noted to be atrial fibrillation with RVR on arrival to the ER. She is also anemic. Patient was anemic on previous admission in August of 2023 requiring 1 unit of PRBC. Patient denies any S/S of bleeding. Cardiovascular: AFIB, CHF, HTN Pulmonary: Other (pulmonary hypertension) Musculoskeletal: Osteoarthritis Rheumatologic: Gout Past Surgical History: Total hip replacement (bilateral) Smoke: No ALCOHOL: occassional Drugs: None Lives: Friends Domestic Violence: Neg Review of Systems Constitutional: Yes: Weakness, Malaise; No: Fever, Chills, Sweats, Other Eyes: No: Pain, Vision change, Conjunctivae inflammation, Eyelid inflammation, Other, Redness ENT: No: Ear pain, Ear discharge, Nose pain, Nose discharge, Nose congestion, Mouth pain, Mouth swelling, Throat pain, Throat swelling, Other Respiratory: Shortness of breath; No: Cough, Dry, SOB with excertion, Wheezing, Hemoptysis, Pleuritic Pain, Sputum, Wheezing, Other Cardiovascular: No: Chest Pain, Palpitations, Orthopnea, Paroxysmal Noc. Dyspnea, Edema, Lt Headedness, Other Gastrointestinal: No: Nausea, Vomiting, Abdominal Pain, Diarrhea, Constipation, Melena, Hematochezia, Other Genitourinary: No Dysuria, No Frequency, No Incontinence, No Hematuria, No Retention, No Other Musculoskeletal: No: other, neck pain, shoulder pain, arm pain, back pain, hand pain, leg pain, foot pain Skin: No: Rash, Lesions, Jaundice, Bruising, Other Neurological: No: Weakness, Numbness, Incoordination, Change in speech, Confusion, Seizures, Other Allergies: Coded Allergies: NO KNOWN ALLERGIES (Unverified , 08/26/23) Medications Current Medications Medications Dose Ordered Sig/Elvin Route Start Time Stop Time Status Last Admin Dose Admin Amiodarone HCl 250 ml @ 33.333 mls/ hr Q7H30M IV 02/11/24 09:00 02/11/24 14:59 02/11/24 09:01 33.333 MLS/HR Sodium Chloride 10 ml Q8HR IV 02/11/24 14:00 UNV Acetaminophen/ Hydrocodone Bitart 1 tab Q4HP PRN PO 02/11/24 09:45 UNV Ondansetron HCl 4 mg Q4HP PRN IV 02/11/24 09:45 UNV Docusate Sodium 100 mg BIDPRN PRN PO 02/11/24 09:45 UNV Acetaminophen 650 mg Q6HP PRN PO 02/11/24 09:45 UNV Exam Vital Signs Vital Signs Date Time Temp Pulse Resp B/P (MAP) Pulse Ox O2 Delivery O2 Flow Rate FiO2 02/11/24 08:51 121 02/11/24 06:58 142/85 02/11/24 06:50 Room Air* 0 21 02/11/24 06:44 16 96 02/11/24 06:24 98.3 General Appearance: Alert, Oriented X3, Cooperative, moderate distress HEENT: Atraumatic, PERRLA Cardiovascular: Other (atrail fib with RVR) Abdominal: Normal bowel sounds, Soft, No tenderness Extremities: No clubbing, Other (Bilateral lower extremity edema +3 pitting) Skin: No rashes, No breakdown, No significant lesion Neuro: Normal gait, Normal speech, Strength at 5/5 X4 ext Psych/Mental Status: Mental status NL, Mood NL Labs/Xrays Labs Test 02/11/24 07:30 02/11/24 06:31 Range/Units Urine Color Colorless Yellow Urine Clarity Clear Clear Urine pH 7.0 5.0-9.0 Urine Specific [place] 1.002 1.001-1.035 Urine Protein Negative Negative Urine Ketones Negative Negative Urine Blood Negative Negative /uL Urine Nitrite Negative Negative Urine Bilirubin Negative Negative Urine Urobilinogen Normal Negative mg/dL Urine Leukocyte Esterase Negative Negative /uL Urine RBC None seen 0 - 4 /hpf Urine WBC <1 0 - 5 /hpf Urine Squamous Epithelial Cells Few <5 /hpf Urine Bacteria None seen None Seen /hpf Urine Glucose Normal Normal mg/dL White Blood Count 8.3 4.4-10.8 10^3/uL Red Blood Count 3.64 L 4.0-5.20 10^6/uL Hemoglobin 6.9 *L 12.2-16.2 g/dL Hematocrit 22.9 L 36.0-46.0 % Mean Corpuscular Volume 62.9 L 80.0-100.0 fL Mean Corpuscular Hemoglobin 18.9 L 28.0-32.0 pg Mean Corpuscular Hemoglobin Concent 30.0 L 32.0-36.0 g/dL Red Cell Distribution Width 18.9 H 11.8-14.3 % Platelet Count 354 140-450 10^3/uL Mean Platelet Volume 7.0 6.9-10.8 fL Neutrophils (%) (Auto) 60.7 37.0-80.0 % Lymphocytes (%) (Auto) 18.4 10.0-50.0 % Monocytes (%) (Auto) 14.7 H 0.0-12.0 % Eosinophils (%) (Auto) 4.5 0.0-7.0 % Basophils (%) (Auto) 1.7 0.0-2.0 % Neutrophils # (Auto) 5.0 1.6-8.6 10 ^3/uL Lymphocytes # (Auto) 1.5 0.4-5.4 10 ^3/uL Monocytes # (Auto) 1.2 0-1.3 10 ^3/uL Eosinophils # (Auto) 0.4 0-0.8 10 ^3/uL Basophils # (Auto) 0.1 0-0.2 10 ^3/uL Nucleated Red Blood Cells 0.1 % Platelet Estimate Adequate Hypochromasia (manual) Moderate Anisocytosis (manual) Slight Microcytosis Moderate Sodium Level 141 136-145 mmol/L Potassium Level 3.7 3.5-5.1 mmol/L Chloride Level 106 98-107 mmol/L Carbon Dioxide Level 26 20-31 mmol/L Anion Gap 9 5-15 Blood Urea Nitrogen 35 H 9-23 mg/dL Creatinine 1.59 H 0.550-1.02 mg/dL Glomerular Filtration Rate Calc 33 >90 mL/min BUN/Creatinine Ratio 22.0 H 10.0-20.0 Serum Glucose 111 H 74-106 mg/dL Calcium Level 9.9 8.7-10.4 mg/dL Troponin I High Sensitivity 12 </=34 ng/L B-Type Natriuretic Peptide 839.69 0-100 pg/mL CHEST RADIOGRAPH FINDINGS: Lines and Tubes: None Lungs: No focal consolidation. Pleura: No effusion. No pneumothorax. Cardiomediastinal contours: Cardiomegaly. Bones: No acute osseous abnormality. IMPRESSION: 1. No acute cardiopulmonary disease. Assessment/Plan Assessment/Plan Assessment: CHF exacerbation, Atrial fibrillation and flutter, Anemia, Acute Kidney injury, Gout, Pulmonary hypertension, Plan: Admit to Tele, Cardiology consult, ECHO, Consider Nephrology consult if renal function does not improve, Iron panel, Transfuse 1 unit PRBC, Manage/Monitor H&H closely, Avoid nephrotoxic medications, Plan discussed with: Patient My Orders Orders - WICHO HAGER Procedure Category Date Status Time Admit ADMIT 02/11/24 Transmitted 09:39 Code Status CODE 02/11/24 Transmitted 09:39 Sodium Chloride Lock PHA 02/11/24 Logged (Saline Lock Ns) 14:00 Hydrocodone-Acet PHA 02/11/24 Logged 5/325mg Tab ([place] 09:45 Ondansetron Hcl PHA 02/11/24 Logged (Zofran) 09:45 Docusate Sodium PHA 02/11/24 Logged Capsule (Colace 09:45 Complete Blood Count LAB 02/12/24 Verified 04:00 Comprehensive LAB 02/12/24 Verified Metabolic Panel 04:00 Cardiac DIET 02/11/24 Transmitted Diet-2gna,Lofat,Lochol Lunch Condition: Serious ERYN 02/11/24 In Process 09:39 Acetaminophen Tablet PHA 02/11/24 Logged (Tylenol Tablet) 09:45 Date of Service: Feb 11, 2024 Billing Provider: WICHO HAGER Common Visit Codes: [id number] INP/OBS CARE (MOD) WICHO HAGER Feb 11, 2024 10:12
[2024-02-11] MEDS: ALLOPURINOL 100 MG TAB PO SCH (10:28)
[2024-02-11] MEDS: METOPROLOL SUCCINATE XL 50 MG TAB PO SCH (10:29)
[2024-02-11] MEDS: PANTOPRAZOLE 40 MG TAB PO SCH (10:30)
[2024-02-11] MEDS: ASPirin-EC 81 mg tab PO SCH (10:30)
[2024-02-11] MEDS: CHOLECALCIFEROL (VITD3) 1,000UNIT=25mCg TAB PO SCH (10:30)
[2024-02-11 10:43] LABS: % Iron Saturation 4.5 % (15-50)
[2024-02-11 12:55] LABS: Folate (Folic Acid) 9.63 ng/mL (>5.38)
[2024-02-11 12:56] LABS: Ferritin 8.5 ng/mL (10-291)
[2024-02-11 14:03] LABS: Amphetamine Screen, Urine Neg (NEGATIVE); Barbiturate Scree,Urine Neg (NEGATIVE); Benzodiazephine Screen, Urine Neg (NEGATIVE); Cannabinoid Screen, Urine Pos (NEGATIVE); Cocaine Screen, Urine Neg (NEGATIVE); Opiate Scree,Urine Pos (NEGATIVE); Phencyclidine Screen, Urine Neg (NEGATIVE)
[2024-02-11] MEDS: SODIUM CHLOR 0.9% PF (SALINE LOCK) 10ML VIAL/SYR IV SCH (14:17)
--- NOTE | 2024-02-11 18:55 | ECG ---
[facility] Test Date: 2024-02-11 Test Time: 08:40:48 Pat Name: KASSI HAM Department: ED Room: [facility] Gender: F Currency Counter: [place] : [id number] Requested By: NII GARZA Order Number: [id number] Reading MD: Leon Mason Measurements Intervals [place] Rate: 121 P: 0 MN: 0 QRS: 66 QRSD: 70 T: 0 QT: 416 QTc: 591 Interpretive Statements Atrial fibrillation Paired ventricular premature complexes Low voltage, precordial leads Nonspecific T abnrm, anterolateral leads Prolonged QT interval Electronically Signed On 02-12-2024 10:30:04 PST by Leon Mason Please click the below link to view image of tracing.
[2024-02-11 19:48] LABS: Hematocrit 26.4 % (36.0-46.0); Hemoglobin 8.1 g/dL (12.2-16.2)
--- NOTE | 2024-02-11 23:03 | DVHINCON2 ---
Date of service: Feb 11, 2024 Referring Physician Nichelle Reason for Consultation CHF exacerbation History of Present Illness This is a 78-year-old female with a past medical history of pulmonary hypertension, anemia, arthritis, gout, CHF, and hypertension who presented to the ED accompanied by her with complaints of SOB x 2 weeks. Patient reports this morning about 0300 she was awoken by her shortness of breath and unable to go back to sleep prompting her to come to the ED for further evaluation. Patient states as of 2 weeks ago her blood bank worker took her off her prescribed Lasix and started her on Torsemide which caused her to begin feeling SOB. Patient also endorses experiencing BLE edema. Patient states that she is typically able to do all activities without assistance however since her symptoms onset she has been requiring more assistance than usual and becoming short of breath with minimal activity. Patient was noted to be atrial fibrillation with RVR on arrival to the ED. HGB 6.9, HCT 22.9, BUN 35, COLLECTOR OF AQUARIUM SPECIMENS 1.59. Chest x-ray shows NAD. Patient was admitted to the hospital. I am asked to consult on this patient. Family History: FH: congestive heart failure G8 FATHER FH: dementia G8 MOTHER Allergies: Coded Allergies: NO KNOWN ALLERGIES (Unverified , 08/26/23) Home Meds Active Scripts Pantoprazole Sodium Sesquihydr (Pantoprazole Sodium) 40 Mg Tab, 40 MG PO BID for 30 Days, #60 TAB Prov:MENG MENDOZA RESIDENT 09/01/23 Allopurinol (ZYLOPRIM TABLET) 100 Mg Tb, 100 MG PO DAILY for 30 Days, #30 TAB Prov:MENG MENDOZA RESIDENT 09/01/23 Reported Medications Torsemide Injection (Torsemide) 20 Mg Tab, 1 TAB PO BID 02/11/24 Aspirin (Aspirin Low Dose) 81 Mg Tab, 1 TAB PO DAILY 02/11/24 Metoprolol Succinate (Metoprolol Succinate Er) 25 Mg Tab, 1 TAB PO DAILY 02/11/24 Cholecalciferol (Vitamin D3) 20 Mcg Tab, 125 MCG PO DAILY, TAB 08/27/23 Discontinued Reported Medications Metoprolol Succinate (Metoprolol Succinate Er) 50 Mg Tab, 50 MG PO DAILY for 30 Days, MG 08/27/23 Furosemide (Furosemide) 20 Mg Tab, 20 MG PO DAILY for 30 Days, MG 08/27/23 Discontinued Scripts Cephalexin Monohydrate (Cephalexin) 500 Mg Cap, 1 CAP PO TID for 3 Days, #9 CAP Prov:MENG MENDOZA RESIDENT 09/01/23 Sucralfate (CARAFATE SUSP) 1 Gm/10 Ml Ss, 10 ML PO QID for 30 Days, #1200 ML 3 Refills Prov:MENG MENDOZA RESIDENT 09/01/23 Current Medications Current Medications Medications (Trade) Dose Ordered Sig/Elvin Route PRN Reason Start Time Stop Time Status Last Admin Amiodarone HCl 250 ml @ 33.333 mls/ hr Q7H30M IV 02/11/24 09:00 02/11/24 14:59 02/11/24 09:01 Sodium Chloride (Saline Lock Ns) 10 ml Q8HR IV 02/11/24 14:00 Acetaminophen/ Hydrocodone Bitart ([place] 5/325MG Tab) 1 tab Q4HP PRN PO MODERATE PAIN (4-6 PAIN SCALE) 02/11/24 09:45 Ondansetron HCl (Zofran) 4 mg Q4HP PRN IV NAUSEA / VOMITING 02/11/24 09:45 Docusate Sodium (Colace Capsule) 100 mg BIDPRN PRN PO FOR CONSTIPATION 02/11/24 09:45 Acetaminophen (Tylenol Tablet) 650 mg Q6HP PRN PO PAIN SCALE 1-3 OR TEMP>100.4 02/11/24 09:45 Allopurinol (Zyloprim Tablet) 100 mg DAILY PO 02/11/24 10:00 02/11/24 10:28 Pantoprazole Sodium (Protonix Tablet) 40 mg BID PO 02/11/24 10:00 02/11/24 10:30 Cholecalciferol (Vitamin D3 Tablet) 5,000 unit DAILY PO 02/11/24 10:00 02/11/24 10:30 Aspirin (Ecotrin Enteric Coated Tablet) 81 mg DAILY PO 02/11/24 10:00 02/11/24 10:30 Metoprolol Succinate (Toprol Xl) 25 mg DAILY PO 02/11/24 10:00 02/11/24 10:29 Review of Systems Constitutional: denies: chills, diaphoresis, fatigue, fever, malaise, sweats, weakness, others EENTM: denies: blurred vision, double vision, ear bleeding, ear discharge, ear drainage, ear pain, ear ringing, eye pain, eye redness, hearing loss, mouth pain , mouth swelling, nasal discharge, nose bleeding, nose congestion, nose pain, photophobia, tearing, throat pain, throat swelling, voice changes, others Respiratory: reports: shortness of breath; denies: cough, hemoptysis, orthopnea, SOB at rest, SOB with excertion, stridor, wheezing, others Cardiovascular: reports: edema (Bilateral legs); denies: chest pain, dizzy spells, diaphoresis, Dyspnea on exertion, irregular heart beat, left arm pain, lightheadedness, palpitations, PND, syncope, others Gastrointestinal: denies: abdomen distended, abdominal pain, blood streaked bowels, constipated, diarrhea, dysphagia, difficulty swallowing, hematemesis, melena, nausea, poor appetite, poor fluid intake, rectal bleeding, rectal pain, vomiting, others Genitourinary: denies: abnormal vagina bleeding, burning, dyspareunia, dysuria, flank pain, frequency, hematuria, incontinence, pain, , vagina discharge, urgency, others Neurological: denies: dizziness, fainting, headache, left sided numbness, left sided weakness, numbness, paresthesia, pre-existing deficit, right sided numbness, right sided weakness, seizure, speech problems, tingling, tremors, weakness, others Musculoskeletal: denies: back pain, gout, joint pain, joint swelling, muscle pain, muscle stiffness, neck pain, others Integumetry: denies: bruises, change in color, change in hair/nails, dryness, laceration, lesions, lumps, rash, wounds, others Allergic/Immunocompromised: denies: Difficulty Healing, Frequent Infections, Hives, Itching, others Hematologic/Lymphatic: denies: anemia, blood clots, easy bleeding, easy bruising, swollen glands, others Endocrine: denies: excessive hunger, excessive sweating, excessive thirst, excessive urination, flushing, intolerance to cold, intolerance to heat, unexplained weight gain, unexplained weight loss, others Psychiatric: denies: anxiety, bipolar disorder, depression, hopeless, panic disorder, schizophrenia, sleepless, suicidal, others All Other Systems: Reviewed and Negative Vital Signs Vital Signs Date Time Temp Pulse Resp B/P (MAP) Pulse Ox O2 Delivery O2 Flow Rate FiO2 02/11/24 10:29 138 113/71 02/11/24 10:00 98.6 15 96 98.6 02/11/24 08:15 Nasal Cannula* 2 28 Physical Exam GENERAL: Awake, alert, oriented. LUNGS: Clear. CARDIOVASCULAR: A-fib. ABDOMEN: Soft. EXT: 3+ BLE edema. Labs/Diagnostic Data Labs Test 02/11/24 07:30 02/11/24 06:31 Range/Units Urine Color Colorless Yellow Urine Clarity Clear Clear Urine pH 7.0 5.0-9.0 Urine Specific [place] 1.002 1.001-1.035 Urine Protein Negative Negative Urine Ketones Negative Negative Urine Blood Negative Negative /uL Urine Nitrite Negative Negative Urine Bilirubin Negative Negative Urine Urobilinogen Normal Negative mg/dL Urine Leukocyte Esterase Negative Negative /uL Urine RBC None seen 0 - 4 /hpf Urine WBC <1 0 - 5 /hpf Urine Squamous Epithelial Cells Few <5 /hpf Urine Bacteria None seen None Seen /hpf Urine Glucose Normal Normal mg/dL White Blood Count 8.3 4.4-10.8 10^3/uL Red Blood Count 3.64 L 4.0-5.20 10^6/uL Hemoglobin 6.9 *L 12.2-16.2 g/dL Hematocrit 22.9 L 36.0-46.0 % Mean Corpuscular Volume 62.9 L 80.0-100.0 fL Mean Corpuscular Hemoglobin 18.9 L 28.0-32.0 pg Mean Corpuscular Hemoglobin Concent 30.0 L 32.0-36.0 g/dL Red Cell Distribution Width 18.9 H 11.8-14.3 % Platelet Count 354 140-450 10^3/uL Mean Platelet Volume 7.0 6.9-10.8 fL Neutrophils (%) (Auto) 60.7 37.0-80.0 % Lymphocytes (%) (Auto) 18.4 10.0-50.0 % Monocytes (%) (Auto) 14.7 H 0.0-12.0 % Eosinophils (%) (Auto) 4.5 0.0-7.0 % Basophils (%) (Auto) 1.7 0.0-2.0 % Neutrophils # (Auto) 5.0 1.6-8.6 10 ^3/uL Lymphocytes # (Auto) 1.5 0.4-5.4 10 ^3/uL Monocytes # (Auto) 1.2 0-1.3 10 ^3/uL Eosinophils # (Auto) 0.4 0-0.8 10 ^3/uL Basophils # (Auto) 0.1 0-0.2 10 ^3/uL Nucleated Red Blood Cells 0.1 % Platelet Estimate Adequate Hypochromasia (manual) Moderate Anisocytosis (manual) Slight Microcytosis Moderate Reticulocyte Count (auto) 2.00 H 0.5-1.5 % Sodium Level 141 136-145 mmol/L Potassium Level 3.7 3.5-5.1 mmol/L Chloride Level 106 98-107 mmol/L Carbon Dioxide Level 26 20-31 mmol/L Anion Gap 9 5-15 Blood Urea Nitrogen 35 H 9-23 mg/dL Creatinine 1.59 H 0.550-1.02 mg/dL Glomerular Filtration Rate Calc 33 >90 mL/min BUN/Creatinine Ratio 22.0 H 10.0-20.0 Serum Glucose 111 H 74-106 mg/dL Calcium Level 9.9 8.7-10.4 mg/dL Iron Level 19 L 50-170 ug/dL Total Iron Binding Capacity 418 250-425 ug/dL Percent Iron Saturation 4.5 L 15-50 % Lactate Dehydrogenase 271 H 120-246 U/L Troponin I High Sensitivity 12 </=34 ng/L B-Type Natriuretic Peptide 839.69 0-100 pg/mL Assessment CHF exacerbation. Atrial fibrillation and flutter. Anemia. Acute Kidney injury. Gout. Pulmonary hypertension. Plan/Recommendation I agree with your ongoing assessment and care of plan. Echocardiogram. IV Amiodarone. [place] for pain management. Aspirin, Metoprolol. Diuretics with Lasix. GI prophylactics. Additional plan as per the hospital course. A total of 45 minutes was spent reviewing the patient record, examining the patient, making a diagnostic and therapeutic plan, discussing this plan with medical personnel, following up on diagnostic studies and following the patient for clinical stability excluding any and all procedures. At least 50% of this time was spent in direct, [id number] contact. Plan discussed with: Patient DE LEON,AMANDA De MD Feb 11, 2024 11:40
[2024-02-12] VITALS (9 sets, daily range): BP systolic 110–138; BP diastolic 69–83; PULSE 95–138; RESP 18–20; TEMP 97.6–98.3; O2SAT 90–96
[2024-02-12 06:58] LABS: Alanine Aminotransferase 13 U/L (7-40); Albumin 3.9 g/dL (3.2-4.8); Anion Gap 9 (5-15); Aspartate Aminotransferase 19 U/L (13-40); BUN/Creatinine Ratio 17.7 (10.0-20.0); Calcium 9.6 mg/dL (8.7-10.4); Carbon Dioxide 28 mmol/L (20-31); Chloride 106 mmol/L (98-107); Sodium 143 mmol/L (136-145)
[2024-02-12 06:59] LABS: Total Protein 6.1 g/dL (5.7-8.2)
[2024-02-12 07:05] LABS: Hematocrit 25.3 % (36.0-46.0); Hemoglobin 7.6 g/dL (12.2-16.2); Mean Corpuscular Hemoglobin 19.3 pg (28.0-32.0); Mean Corpuscular Hgb Conc. 30.1 g/dL (32.0-36.0); Mean Corpuscular Volume 64.2 fL (80.0-100.0); Platelet Count (auto) 324 10^3/uL (140-450); Red Blood Cells 3.93 10^6/uL (4.0-5.20); Red Cell Distribution Width 20.1 % (11.8-14.3); White Blood Cell 6.4 10^3/uL (4.4-10.8)
[2024-02-12 07:07] LABS: Basophils % (manual) 0 (0.0-2.0); Blast Cells 0; Metamyelocytes % 0; Myelocytes % 0; Promyelocytes % 0; Reactive Lymphocytes 0
[2024-02-12 07:12] LABS: Alkaline Phosphatase 158 U/L (46-116); Blood Urea Nitrogen 29 mg/dL (9-23); Glucose 130 mg/dL (74-106); Potassium 3.3 mmol/L (3.5-5.1)
[2024-02-12 08:38] LABS: Band Neutrophils % (manual) 1; Eosinophils % (manual) 2 (0-7); Lymphocytes % (manual) 25 (10.0-50.0); Monocytes % (manual) 3 (0-12)
[2024-02-12 08:39] LABS: Anisocytosis Slight; Hypochromia Marked; Platelet Estimate Adequate
[2024-02-12] MEDS ORDERED: METOPROLOL SUCCINATE XL 50 MG TAB PO SCH (10:00)
[2024-02-12] MEDS: PANTOPRAZOLE 40 MG/10 ML VIAL INJ IV SCH (10:21)
[2024-02-12] MEDS: FUROSEMIDE 20 MG/2 ML VIAL IV SCH (10:24)
[2024-02-12] MEDS: SUCRALFATE 1 GM TAB PO ONE (10:24)
[2024-02-12] MEDS: POTASSIUM EFFERVESENT TAB 25 MEQ PO ONE (10:25)
--- NOTE | 2024-02-12 11:19 | DVH ---
CHEST RADIOGRAPH Indication: chf Technique: Single frontal view of the chest was obtained Comparison: XY CHEST PORTABLE on DOS: 02/11/24, XY CHEST PORTABLE on DOS: 08/28/23 FINDINGS: Lines and Tubes: None Lungs: No focal consolidation. Pleura: No effusion. No pneumothorax. Cardiomediastinal contours: Cardiomegaly Bones: No acute osseous abnormality. IMPRESSION: Cardiomegaly with mild CHF.
[2024-02-12 11:31] LABS: INR 1.12 (0.9-1.15); Prothrombin Time 11.8 sec (9.3-11.8)
--- NOTE | 2024-02-12 13:18 | DVHINCON2 ---
GI Consult Consult Note GI consult note Date of Consultation: 02/12/2024 Chief Complaint: Severe anemia, PMH of peptic and duodenal ulcers Referring Physician: Dr. cedeno H&P: 78-year-old female admitted with shortness of breath. Patient noticed increased shortness of breath and leg swelling for the past few days. When medication was changed from Lasix to torsemide at [place]. Patient also has history of CKD stage 3 Patient denies abdominal pain. No nausea or vomiting. No melena or red blood in stool SP EGD DATE OF OPERATION: 08/31/23 PROCEDURE: Upper Endoscopy with biopsy. PREOPERATIVE INDICATION: The patient is a 78 -year-old female undergoing endoscopy for coffee ground emesis and anemia POSTOPERATIVE DIAGNOSES: 1. 2-3 cm sliding-type hiatal hernia with grade B to C erosive esophagitis with distal esophageal ulcers from which biopsies were obtained with minimal oozing 2. Moderate antral gastritis with multiple pre-pyloric antral gastric erosions and ulcers 3. Moderate duodenitis with a healing duodenal ulcers Kleber classification C with no visible vessel no active bleeding and no fresh or old blood in the stomach PROCEDURE PERFORMED BY: Bharti Garcia Past Medical History: AFIB, Arthritis, CHF, Gout, HTN Past Surgical History: Bilateral hip replacement Social History: NO smoking, drinking ETOH and use of illegal drugs. Family History: Noncontributory Review of Systems: Constitutional: no fever, chill, weight loss HEENT: no eye pain, no hearing loss, no oral lesion, no scleral icterus Heart: no chest pain, no chest pressure Lung: no cough, no dyspnea with exertion Abdomen: see HPI Physical exam: General: NAD, AAOX3 Chest: lung cbaello clear to auscultation Heart: RRR, no murmur Abdomen: non-distended, no tenderness to palpation, +BS Labs: Labs Test 02/12/24 10:57 02/12/24 05:48 02/12/24 05:45 02/11/24 07:30 Range/Units Prothrombin Time 11.8 9.3-11.8 sec Prothrombin Time INR 1.12 0.9-1.15 White Blood Count 6.4 4.4-10.8 10^3/uL Red Blood Count 3.93 L 4.0-5.20 10^6/uL Hemoglobin 7.6 L 12.2-16.2 g/dL Hematocrit 25.3 L 36.0-46.0 % Mean Corpuscular Volume 64.2 L 80.0-100.0 fL Mean Corpuscular Hemoglobin 19.3 L 28.0-32.0 pg Mean Corpuscular Hemoglobin Concent 30.1 L 32.0-36.0 g/dL Red Cell Distribution Width 20.1 H 11.8-14.3 % Platelet Count 324 140-450 10^3/uL Mean Platelet Volume 7.1 6.9-10.8 fL Neutrophils (%) (Auto) 37.0-80.0 % Lymphocytes (%) (Auto) 10.0-50.0 % Monocytes (%) (Auto) 0.0-12.0 % Basophils (%) (Auto) 0.0-2.0 % Neutrophils # (Auto) 1.6-8.6 10 ^3/uL Lymphocytes # (Auto) 0.4-5.4 10 ^3/uL Monocytes # (Auto) 0-1.3 10 ^3/uL Differential Total Cells Counted 100.0 100 Neutrophils % (Manual) 69 37.0-80.0 Band Neutrophils % (Manual) 1 Lymphocytes % (Manual) 25 10.0-50.0 Monocytes % (Manual) 3 0-12 Eosinophils % (Manual) 2 0-7 Basophils % (Manual) 0 0.0-2.0 Metamyelocytes % (manual) 0 Myelocytes % (Manual) 0 Promyelocytes % (Manual) 0 Blast Cells % (Manual) 0 Reactive Lymphocytes 0 Platelet Estimate Adequate Hypochromasia (manual) Marked Anisocytosis (manual) Slight Microcytosis Moderate Sodium Level 143 136-145 mmol/L Potassium Level 3.3 L 3.5-5.1 mmol/L Chloride Level 106 98-107 mmol/L Carbon Dioxide Level 28 20-31 mmol/L Anion Gap 9 5-15 Blood Urea Nitrogen 29 H 9-23 mg/dL Creatinine 1.64 H 0.550-1.02 mg/dL Glomerular Filtration Rate Calc 32 >90 mL/min BUN/Creatinine Ratio 17.7 10.0-20.0 Serum Glucose 130 H 74-106 mg/dL Calcium Level 9.6 8.7-10.4 mg/dL Magnesium Level 2.2 1.6-2.6 mg/dL Total Bilirubin 1.0 0.2-1.0 mg/dL Aspartate Amino Transferase (AST) 19 13-40 U/L Alanine Aminotransferase (ALT) 13 7-40 U/L Alkaline Phosphatase 158 H 46-116 U/L Total Protein 6.1 5.7-8.2 g/dL Albumin 3.9 3.2-4.8 g/dL Vitamin B12 Level 624 211-911 pg/mL Vitamin D 25-Hydroxy 84.0 30.0-100 ng/mL Urine Color Colorless Yellow Urine Clarity Clear Clear Urine pH 7.0 5.0-9.0 Urine Specific [place] 1.002 1.001-1.035 Urine Protein Negative Negative Urine Ketones Negative Negative Urine Blood Negative Negative /uL Urine Nitrite Negative Negative Urine Bilirubin Negative Negative Urine Urobilinogen Normal Negative mg/dL Urine Leukocyte Esterase Negative Negative /uL Urine RBC None seen 0 - 4 /hpf Urine WBC <1 0 - 5 /hpf Urine Squamous Epithelial Cells Few <5 /hpf Urine Bacteria None seen None Seen /hpf Urine Glucose Normal Normal mg/dL Urine Opiates Screen Pos NEGATIVE Urine Fentanyl Screen Pos NEGATIVE Urine Barbiturates Screen Neg NEGATIVE Urine Phencyclidine Screen Neg NEGATIVE Urine Amphetamines Screen Neg NEGATIVE Urine Benzodiazepines Screen Neg NEGATIVE Urine Cocaine Screen Neg NEGATIVE Urine Cannabinoids Screen Pos NEGATIVE Test 02/11/24 06:31 Range/Units Eosinophils (%) (Auto) 4.5 0.0-7.0 % Eosinophils # (Auto) 0.4 0-0.8 10 ^3/uL Basophils # (Auto) 0.1 0-0.2 10 ^3/uL Nucleated Red Blood Cells 0.1 % Reticulocyte Count (auto) 2.00 H 0.5-1.5 % Iron Level 19 L 50-170 ug/dL Total Iron Binding Capacity 418 250-425 ug/dL Percent Iron Saturation 4.5 L 15-50 % Ferritin 8.5 L 10-291 ng/mL Lactate Dehydrogenase 271 H 120-246 U/L Troponin I High Sensitivity 12 </=34 ng/L B-Type Natriuretic Peptide 839.69 0-100 pg/mL Folic Acid 9.63 >5.38 ng/mL Imaging: Assessment: Anemia Gastritis/duodenitis with healing ulcers Atrial fibrillation History of CHF History of CKD Plan: -discussed with Dr. Garcia Recommend Cardiology consult Monitor lab Protonix and Carafate Clear liquid diet advance as tolerated We will continue to monitor the patient Discussed plan with Dr. Zepeda attending physician, and Dr. Cedeno resident Thank you for the consult Date of Service: Feb 12, 2024 Billing Provider: ROBBY CHACKO Common Visit Codes: CONSULT ONLY Consultation Codes: [id number] CONSULT <45MIN ROBBY CHACKO Feb 12, 2024 13:18
--- NOTE | 2024-02-12 13:25 | DVHPN2 ---
Progress Note - Dictate Date Seen: Feb 12, 2024 Medical Necessity Reason Pt with a Central, PICC or Fol: No Subjective Patient was seen and evaluated in follow up. Patient reports improvement in SOB. Patient received PRBC transfusion yesterday afternoon. HGB 7.6, HCT 25.3, K 3.3, BUN 29, SAW STRAIGHTENER 1.64. Chest x-ray shows cardiomegaly with mild CHF. vital signs Vital Sign Date Time Temp Pulse Resp B/P (MAP) Pulse Ox O2 Delivery O2 Flow Rate FiO2 02/12/24 10:24 121/75 02/12/24 08:48 97.9 99 18 95 97.9 02/12/24 08:20 Room Air* 0 21 Total Intake and Output 02/11/24 02/11/24 02/12/24 15:00 23:00 07:00 Intake Total 700 ml 630 ml Output Total 0 ml Balance 700 ml 630 ml medications Current Medications Medications Dose Ordered Sig/Elvin Route Start Time Stop Time Status Last Admin Dose Admin Sodium Chloride 10 ml Q8HR IV 02/11/24 14:00 02/12/24 05:50 10 ML Acetaminophen/ Hydrocodone Bitart 1 tab Q4HP PRN PO 02/11/24 09:45 Ondansetron HCl 4 mg Q4HP PRN IV 02/11/24 09:45 Docusate Sodium 100 mg BIDPRN PRN PO 02/11/24 09:45 Acetaminophen 650 mg Q6HP PRN PO 02/11/24 09:45 Allopurinol 100 mg DAILY PO 02/11/24 10:00 02/12/24 10:24 100 MG Cholecalciferol 5,000 unit DAILY PO 02/11/24 10:00 02/12/24 10:24 5,000 UNIT Furosemide 20 mg DAILY IV 02/12/24 10:00 02/12/24 10:24 20 MG Amiodarone HCl 250 ml @ 16.667 mls/ hr Q15H IV 02/11/24 15:00 02/12/24 05:50 16.667 MLS/HR Pantoprazole Sodium 40 mg DAILY IV 02/12/24 10:00 02/12/24 10:21 40 MG Metoprolol Succinate 50 mg DAILY PO 02/13/24 10:00 objective GENERAL: Awake, alert, oriented. LUNGS: Clear. CARDIOVASCULAR: A-fib. ABDOMEN: Soft. EXT: 3+ BLE edema. laboratory and microbiology Laboratory Tests 02/12/24 05:48 Test 02/12/24 05:48 Range/Units Serum Glucose 130 H 74-106 mg/dL Problem List CHF exacerbation. Atrial fibrillation and flutter. Anemia. Acute Kidney injury. Gout. Pulmonary hypertension. Assessment/Plan Continued all current supportive medical care. Echocardiogram. [place] for pain management. IV Amiodarone. Aspirin, Metoprolol. Diuretics with Lasix. GI prophylactics. Additional plan as per the hospital course. Plan discussed with: Patient CC Plasma Assessment Blood Product Administration S: [id number] AMANDA DE LEON MD Feb 12, 2024 11:20
--- NOTE | 2024-02-12 13:56 | DVHINCON2 ---
Date of service: Feb 12, 2024 Referring Physician Olya vu, nurse practitioner Reason for Consultation Acute kidney injury History of Present Illness Patient is 78-year-old female with past medical history significant for AFIB, Arthritis, CHF, Gout, HTN and chronic kidney disease stage 3 is admitted for worsening shortness of breath. On admission patient found to have elevated BUN creatinine nephrology is consulted for acute kidney injury Past Medical History PAST MEDICAL HISTORY: AFIB, Arthritis, CHF, Gout, HTN Past Surgical History Bilateral hip replacement Allergies: Coded Allergies: NO KNOWN ALLERGIES (Unverified , 08/26/23) Home Meds Active Scripts Pantoprazole Sodium Sesquihydr (Pantoprazole Sodium) 40 Mg Tab, 40 MG PO BID for 30 Days, #60 TAB Prov:MENG MENDOZA RESIDENT 09/01/23 Allopurinol (ZYLOPRIM TABLET) 100 Mg Tb, 100 MG PO DAILY for 30 Days, #30 TAB Prov:MENG MENDOZA RESIDENT 09/01/23 Reported Medications Torsemide Injection (Torsemide) 20 Mg Tab, 1 TAB PO BID 02/11/24 Aspirin (Aspirin Low Dose) 81 Mg Tab, 1 TAB PO DAILY 02/11/24 Metoprolol Succinate (Metoprolol Succinate Er) 25 Mg Tab, 1 TAB PO DAILY 02/11/24 Cholecalciferol (Vitamin D3) 20 Mcg Tab, 125 MCG PO DAILY, TAB 08/27/23 Discontinued Reported Medications Metoprolol Succinate (Metoprolol Succinate Er) 50 Mg Tab, 50 MG PO DAILY for 30 Days, MG 08/27/23 Furosemide (Furosemide) 20 Mg Tab, 20 MG PO DAILY for 30 Days, MG 08/27/23 Discontinued Scripts Cephalexin Monohydrate (Cephalexin) 500 Mg Cap, 1 CAP PO TID for 3 Days, #9 CAP Prov:MENG MENDOZA RESIDENT 09/01/23 Sucralfate (CARAFATE SUSP) 1 Gm/10 Ml Ss, 10 ML PO QID for 30 Days, #1200 ML 3 Refills Prov:MENG MENDOZA 09/01/23 Current Medications Current Medications Medications (Trade) Dose Ordered Sig/Elvin Route PRN Reason Start Time Stop Time Status Last Admin Metoprolol Succinate (Toprol Xl) 50 mg DAILY PO 02/13/24 10:00 02/13/24 09:40 Furosemide (Lasix Injection) 40 mg DAILY IV 02/13/24 10:00 02/13/24 09:40 Family History: FH: congestive heart failure G8 FATHER FH: dementia G8 MOTHER Review of Systems All 12 item review of systems reviewed with the patient nonsignificant except what is mentioned in the history of present illness H&P Exam Vital Signs/I&O Vital Sign Date Time Temp Pulse Resp B/P (MAP) Pulse Ox O2 Delivery O2 Flow Rate FiO2 02/13/24 09:40 124/83 02/13/24 09:40 138 02/13/24 08:00 17 Room Air* 0 21 02/13/24 07:55 98.4 94 98.4 Intake and Output 02/12/24 02/13/24 19:00 07:00 Intake Total 1473.3 ml 583.369 ml Output Total 800 ml Balance 673.3 ml 583.369 ml Intake Oral 1290 ml 400 ml IV Total 183.3 ml 183.369 ml Output Urine Total 800 ml # Voids 2 # Bowel Movements 1 Physical Exam Patient is awake alert Lungs clear to auscultation bilaterally Cardiac exam is tachycardic GI soft nontender was normal Extremities no clubbing cyanosis or edema Neuro nonfocal Labs/Diagnostic Data Labs/Diagnostic Data Laboratory Tests Test 02/13/24 04:38 02/12/24 14:00 02/12/24 10:57 02/12/24 05:48 Range/Units White Blood Count 8.1 # 6.4 4.4-10.8 10^3/uL Red Blood Count 3.79 L 3.93 L 4.0-5.20 10^6/uL Hemoglobin 7.4 L 8.1 L 7.6 L 12.2-16.2 g/dL Hematocrit 24.1 L 26.7 L 25.3 L 36.0-46.0 % Mean Corpuscular Volume 63.7 L 64.2 L 80.0-100.0 fL Mean Corpuscular Hemoglobin 19.5 L 19.3 L 28.0-32.0 pg Mean Corpuscular Hemoglobin Concent 30.7 L 30.1 L 32.0-36.0 g/dL Red Cell Distribution Width 20.4 H 20.1 H 11.8-14.3 % Platelet Count 306 324 140-450 10^3/uL Mean Platelet Volume 7.1 7.1 6.9-10.8 fL Neutrophils (%) (Auto) 69.0 37.0-80.0 % Lymphocytes (%) (Auto) 11.4 10.0-50.0 % Monocytes (%) (Auto) 16.4 H 0.0-12.0 % Eosinophils (%) (Auto) 1.6 0.0-7.0 % Basophils (%) (Auto) 1.6 0.0-2.0 % Neutrophils # (Auto) 5.6 1.6-8.6 10 ^3/uL Lymphocytes # (Auto) 0.9 0.4-5.4 10 ^3/uL Monocytes # (Auto) 1.3 0-1.3 10 ^3/uL Eosinophils # (Auto) 0.1 0-0.8 10 ^3/uL Basophils # (Auto) 0.1 0-0.2 10 ^3/uL Nucleated Red Blood Cells 0.1 % Platelet Estimate [place] Adequate Large Platelets Few Hypochromasia (manual) Moderate Marked Anisocytosis (manual) Slight Slight Microcytosis Moderate Moderate Stomatocytes Moderate Sodium Level 141 143 136-145 mmol/L Potassium Level 4.0 4.7 3.3 L 3.5-5.1 mmol/L Chloride Level 106 106 98-107 mmol/L Carbon Dioxide Level 28 28 20-31 mmol/L Anion Gap 7 9 5-15 Blood Urea Nitrogen 20 29 H 9-23 mg/dL Creatinine 1.51 H 1.64 H 0.550-1.02 mg/dL Glomerular Filtration Rate Calc 35 32 >90 mL/min BUN/Creatinine Ratio 13.2 17.7 10.0-20.0 Serum Glucose 115 H 130 H 74-106 mg/dL Calcium Level 9.9 9.6 8.7-10.4 mg/dL Uric Acid 8.5 H 3.1-7.8 mg/dL Phosphorus Level 2.4 2.4-5.1 mg/dL Magnesium Level 2.3 2.2 1.6-2.6 mg/dL Parathyroid Hormone (Intact) 206.0 H 18.4-80.1 pg/mL Prothrombin Time 11.8 9.3-11.8 sec Prothrombin Time INR 1.12 0.9-1.15 Differential Total Cells Counted 100.0 100 Neutrophils % (Manual) 69 37.0-80.0 Band Neutrophils % (Manual) 1 Lymphocytes % (Manual) 25 10.0-50.0 Monocytes % (Manual) 3 0-12 Eosinophils % (Manual) 2 0-7 Basophils % (Manual) 0 0.0-2.0 Metamyelocytes % (manual) 0 Myelocytes % (Manual) 0 Promyelocytes % (Manual) 0 Blast Cells % (Manual) 0 Reactive Lymphocytes 0 Total Bilirubin 1.0 0.2-1.0 mg/dL Aspartate Amino Transferase (AST) 19 13-40 U/L Alanine Aminotransferase (ALT) 13 7-40 U/L Alkaline Phosphatase 158 H 46-116 U/L Total Protein 6.1 5.7-8.2 g/dL Albumin 3.9 3.2-4.8 g/dL Test 02/12/24 05:45 02/11/24 19:32 02/11/24 07:30 02/11/24 06:31 Range/Units Vitamin B12 Level 624 702 211-911 pg/mL Vitamin D 25-Hydroxy 84.0 30.0-100 ng/mL Hemoglobin 8.1 #L 6.9 *L 12.2-16.2 g/dL Hematocrit 26.4 #L 22.9 L 36.0-46.0 % Urine Color Colorless Yellow Urine Clarity Clear Clear Urine pH 7.0 5.0-9.0 Urine Specific [place] 1.002 1.001-1.035 Urine Protein Negative Negative Urine Ketones Negative Negative Urine Blood Negative Negative /uL Urine Nitrite Negative Negative Urine Bilirubin Negative Negative Urine Urobilinogen Normal Negative mg/dL Urine Leukocyte Esterase Negative Negative /uL Urine RBC None seen 0 - 4 /hpf Urine WBC <1 0 - 5 /hpf Urine Squamous Epithelial Cells Few <5 /hpf Urine Bacteria None seen None Seen /hpf Urine Glucose Normal Normal mg/dL Urine Opiates Screen Pos NEGATIVE Urine Fentanyl Screen Pos NEGATIVE Urine Barbiturates Screen Neg NEGATIVE Urine Phencyclidine Screen Neg NEGATIVE Urine Amphetamines Screen Neg NEGATIVE Urine Benzodiazepines Screen Neg NEGATIVE Urine Cocaine Screen Neg NEGATIVE Urine Cannabinoids Screen Pos NEGATIVE White Blood Count 8.3 4.4-10.8 10^3/uL Red Blood Count 3.64 L 4.0-5.20 10^6/uL Mean Corpuscular Volume 62.9 L 80.0-100.0 fL Mean Corpuscular Hemoglobin 18.9 L 28.0-32.0 pg Mean Corpuscular Hemoglobin Concent 30.0 L 32.0-36.0 g/dL Red Cell Distribution Width 18.9 H 11.8-14.3 % Platelet Count 354 140-450 10^3/uL Mean Platelet Volume 7.0 6.9-10.8 fL Neutrophils (%) (Auto) 60.7 37.0-80.0 % Lymphocytes (%) (Auto) 18.4 10.0-50.0 % Monocytes (%) (Auto) 14.7 H 0.0-12.0 % Eosinophils (%) (Auto) 4.5 0.0-7.0 % Basophils (%) (Auto) 1.7 0.0-2.0 % Neutrophils # (Auto) 5.0 1.6-8.6 10 ^3/uL Lymphocytes # (Auto) 1.5 0.4-5.4 10 ^3/uL Monocytes # (Auto) 1.2 0-1.3 10 ^3/uL Eosinophils # (Auto) 0.4 0-0.8 10 ^3/uL Basophils # (Auto) 0.1 0-0.2 10 ^3/uL Nucleated Red Blood Cells 0.1 % Platelet Estimate Adequate Hypochromasia (manual) Moderate Anisocytosis (manual) Slight Microcytosis Moderate Reticulocyte Count (auto) 2.00 H 0.5-1.5 % Sodium Level 141 136-145 mmol/L Potassium Level 3.7 3.5-5.1 mmol/L Chloride Level 106 98-107 mmol/L Carbon Dioxide Level 26 20-31 mmol/L Anion Gap 9 5-15 Blood Urea Nitrogen 35 H 9-23 mg/dL Creatinine 1.59 H 0.550-1.02 mg/dL Glomerular Filtration Rate Calc 33 >90 mL/min BUN/Creatinine Ratio 22.0 H 10.0-20.0 Serum Glucose 111 H 74-106 mg/dL Calcium Level 9.9 8.7-10.4 mg/dL Iron Level 19 L 50-170 ug/dL Total Iron Binding Capacity 418 250-425 ug/dL Percent Iron Saturation 4.5 L 15-50 % Ferritin 8.5 L 10-291 ng/mL Lactate Dehydrogenase 271 H 120-246 U/L Troponin I High Sensitivity 12 </=34 ng/L B-Type Natriuretic Peptide 839.69 0-100 pg/mL Folic Acid 9.63 >5.38 ng/mL Assessment Acute kidney injury superimposed Chronic Kidney Disease secondary hemodynamic mediated Chronic diastolic heart failure AFib with RVR Gouty arthritis Significant microcytic anemia status post packed red blood cell transfusion Hypokalemia Recommendations Closely monitor fluid and electrolytes Avoid nephrotoxic medications Strict I&Os KCL replacement Check urine electrolytes and urine protein Kidney ultrasound reported earlier bilateral echogenic kidney Rule out GI bleeding We will continue to follow Patient seen and examined by myself. I discussed my plan of care with the patient and primary nurse at the bedside I would like to thank Olya for the consult, will follow up Plan discussed with: Patient MEDHAT PALENCIA MD Feb 12, 2024 13:55
--- NOTE | 2024-02-12 14:31 | ECG ---
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
[2024-02-12 14:41] LABS: Hematocrit 26.7 % (36.0-46.0); Hemoglobin 8.1 g/dL (12.2-16.2)
[2024-02-12] MEDS: FUROSEMIDE 20 MG/2 ML VIAL IV ONE (14:50)
--- NOTE | 2024-02-12 15:46 | DVHPNRES ---
Progress Note Date Seen: Feb 12, 2024 Resident Creating Document: TOM COTTO RESIDENT Medical Necessity Reason Pt with a Central, PICC or Fol: No Subjective Review of Systems 78-year-old female patient with past medical history of pulmonary hypertension, atrial fibrillation (paroxysmal) currently on amiodarone transitioning to oral therapy, current heart failure, hypertension, gout, osteoarthritis, bilateral total hip replacements and severe anemia likely secondary to chronic kidney disease or blood loss. She presented to the emergency department with progressive shortness of breaths over the past 2 weeks. 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 Over the last 2 weeks, she has experienced worsening bilateral lower extremity edema and shortness of breaths, limiting her ability to perform daily activities such as grocery shopping and household course. On arrival she was noted to have atrial fibrillation with rapid ventricular response and was found to be anemic. She received 1 unit of packed red blood cells transfusion during her hospitalization. GI was consulted and they recommend initiated pantoprazole and sucralfate for upper gastrointestinal protection. Cardiology and Nephrology are also on board. Review of systems Constitutional: Reports fatigue and reduced exercise tolerance. Denies fever or weight loss Cardiovascular: Shortness of breaths with the activity. Denies chest pain or palpitations beyond her known atrial fibrillation. Respiratory: Progressive dyspnea\. Denies cough or wheezing GI: Denies nausea, vomiting, melena, hematochezia. Genitourinary denies dysuria or hematuria Musculoskeletal: Bilateral lower extremity swelling. Reports doing pain due to osteoarthritis. Neurological: Denies headache, dizziness or focal neurological deficits. Endocrine no symptoms of thyroid dysfunction. Psychiatry: Denies anxiety or depression Patient reports: Feels better Changes from previous H/P or p: Changes Objective vital signs Vital Sign Date Time Temp Pulse Resp B/P (MAP) Pulse Ox O2 Delivery O2 Flow Rate FiO2 02/12/24 14:50 122/83 02/12/24 13:00 98.0 132 20 96 98.0 02/12/24 08:20 Room Air* 0 21 Total Intake and Output 02/11/24 02/11/24 02/12/24 15:00 23:00 07:00 Intake Total 700 ml 630 ml Output Total 0 ml Balance 700 ml 630 ml medications Current Medications Medications Dose Ordered Sig/Elvin Route Start Time Stop Time Status Last Admin Dose Admin Sodium Chloride 10 ml Q8HR IV 02/11/24 14:00 02/12/24 14:00 10 ML Acetaminophen/ Hydrocodone Bitart 1 tab Q4HP PRN PO 02/11/24 09:45 Ondansetron HCl 4 mg Q4HP PRN IV 02/11/24 09:45 Docusate Sodium 100 mg BIDPRN PRN PO 02/11/24 09:45 Acetaminophen 650 mg Q6HP PRN PO 02/11/24 09:45 Allopurinol 100 mg DAILY PO 02/11/24 10:00 02/12/24 10:24 100 MG Cholecalciferol 5,000 unit DAILY PO 02/11/24 10:00 02/12/24 10:24 5,000 UNIT Amiodarone HCl 250 ml @ 16.667 mls/ hr Q15H IV 02/11/24 15:00 02/12/24 05:50 16.667 MLS/HR Pantoprazole Sodium 40 mg DAILY IV 02/12/24 10:00 02/12/24 10:21 40 MG Metoprolol Succinate 50 mg DAILY PO 02/13/24 10:00 Furosemide 40 mg DAILY IV 02/13/24 10:00 Examination Examination General Appearance: Alert, Oriented X3, Cooperative, No acute distress HEENT: EOMI Respiratory: Clear to auscultation, Normal air movement Cardiovascular: Irregular rate and rhythm: Normal S1 and S2 Abdominal: Normal bowel sounds Extremities: No cyanosis, No edema, Normal pulses, No tenderness/swelling, lower extremity edema 2+ Skin: No rashes, No breakdown Neuro: Normal gait, Normal speech, Strength at 5/5 X4 ext, Normal tone, Sensation intact, Cranial nerves 3-12 NL, Reflexes 2+ Psych/Mental Status: Mental status NL, Mood NL laboratory and microbiology Laboratory Tests 02/12/24 14:00 02/12/24 05:48 Test 02/12/24 05:48 Range/Units Serum Glucose 130 H 74-106 mg/dL Problem List/Assessment/Plan Problem List/Assessment/Plan #Acute hypoxemic respiratory failure likely due to systolic/diastolic heart failure exacerbation likely due to severe anemia Oxygen supplementation through nasal cannula Echocardiogram is pending Cardiology consult, on board Metoprolol succinate XL 50 mg daily p.o. Furosemide 40 mg daily IV #Paroxysmal atrial fibrillation exacerbated likely due to severe anemia , chads Vasc 4 points , has bled 2 point Amiodarone IV Metoprolol 50 mg Echocardiogram is pending Cardiology on board #History of gastritis/duodenitis with healing ulcers Pantoprazole 40 p.o. Sucralfate GI on board Clear liquid diet #Acute kidney injury on superimposed chronic kidney disease secondary to hemodynamic mediated As above. Nephrology on board #Gout Allopurinol 100 mg daily p.o. #Significant microcytic hypochromic anemia status post red blood subsequent fusion -monitor, current hemoglobin 8.1 #Hypokalemia, replenished case discussed with Dr. Zepeda Code status: Full code Goals of care discussed with the patient for 36 minutes. Plan discussed with: Patient My Orders My Orders Orders - TOM COTTO Procedure Category Date Status Time Stool Occult Blood LAB 02/12/24 Uncollected 09:16 Ph Stool LAB 02/12/24 Logged 09:16 Pt Request For Service PT 02/12/24 Logged 09:16 Chest Portable XY 02/12/24 Resulted 09:23 * [facility] [employer] CONS 02/12/24 Transmitted 09:26 Pantoprazole PHA 02/12/24 In Process (Protonix) 10:00 Npo (Nothing By DIET 02/12/24 Transmitted Mouth) Diet Breakfast Metoprolol Xl PHA 02/13/24 In Process Succinate (Toprol Xl) 10:00 *[facility] CONS 02/12/24 Transmitted -[place] 12:54 Clear Liq Diet DIET 02/12/24 Transmitted Lunch Furosemide Injection PHA 02/13/24 In Process (Lasix Injection) 10:00 Parathyroid Hormone LAB 02/12/24 In Process Intact 15:22 CC Plasma Assessment Blood Product Administration S: 12:40 Date of Service: Feb 12, 2024 Billing Provider: JORGE ZEPEDA MD Common Visit Codes: 13620-[id number] INP/OBS CARE(HIGH) Secondary Visit Codes: 89900-LTRIHNIN CARE PLAN 30 MINUTES TOM COTTO RESIDENT Feb 12, 2024 15:46 JORGE ZEPEDA MD Feb 12, 2024 22:46
[2024-02-12 16:06] LABS: Magnesium 2.3 mg/dL (1.6-2.6); Phosphorus 2.4 mg/dL (2.4-5.1)
--- NOTE | 2024-02-12 19:24 | DVHSR ---
APPROVED REPORT EXAM: Two-dimensional and M-mode echocardiogram with Doppler and color Doppler. Blood Pressure: 142/85 mmHg INDICATION ef RISK FACTORS Obesity: Height: 5'7, Weight: 182 DIMENSIONS LVDd3.9 (3.8-5.7cm)LA (2D)4.3 (1.9-4.0cm)Aortic Root3.3 (2.0-3.7cm) LVDs2.6 (2.5-4.0cm)LA (MM) (1.9-4.0cm)Aortic Cusp Exc1.6 (1.5-2.0cm) EF (%) 60.0 (55-70%)Rt. Atrium3.6 (1.9-4.0cm)Asc. Aorta3.8 cm IVSd1.1 (0.7-1.1cm)RV (D) (1.8-2.4cm) PWd0.9 (0.7-1.1cm) Mitral Valve MitralMitral Stenosis E wave1.06m/sMV Mean GR.4mmHg A wavem/sMV Peak GR.101mmHg E/A ratio0.02D MVAcm2 DECEL [id number] 1/2 Timems Aortic Valve Aortic ValveAortic Stenosis V11.20m/Darron Mean GR.6mmHg V21.66m/Darron Peak GR.11mmHg LVOT Diameter1.8 (1.8-2.4cm)Doppler AVA1.84cm2 Pulmonic Valve V20.89m/s Tricuspid Valve TR Velocity3.33m/s [id number] Conclusion MODERATE DEGREE LVH MODERATE LV DIASTOLC DYSFUNCTION LV EJECTION FRACTION IS 65% SLIGHTLY DILATED LA SEVERE PULMONARY HYPERTENSION RVSP IS 53 MM OF HG AND IS VERY HIGH NO EFFUSION NORMAL RV FUNCTION CALCIFIED AORTIC VALVE
[2024-02-13] VITALS (8 sets, daily range): BP systolic 90–128; BP diastolic 62–83; PULSE 114–142; RESP 17–20; TEMP 97.7–99.1; O2SAT 91–97
[2024-02-13 05:46] LABS: Chloride 106 mmol/L (98-107); Sodium 141 mmol/L (136-145)
[2024-02-13 05:47] LABS: Anion Gap 7 (5-15); Carbon Dioxide 28 mmol/L (20-31)
[2024-02-13 05:48] LABS: Calcium 9.9 mg/dL (8.7-10.4)
[2024-02-13 05:49] LABS: Hemoglobin 7.4 g/dL (12.2-16.2); Monocytes # (auto) 1.3 10 ^3/uL (0-1.3); Monocytes % (auto) 16.4 % (0.0-12.0); Nucleated Red Blood Cells % 0.1 %; White Blood Cell 8.1 10^3/uL (4.4-10.8)
[2024-02-13 05:50] LABS: Basophils # (auto) 0.1 10 ^3/uL (0-0.2); Basophils % (auto) 1.6 % (0.0-2.0); Eosinophils # (auto) 0.1 10 ^3/uL (0-0.8); Eosinophils % (auto) 1.6 % (0.0-7.0); Hematocrit 24.1 % (36.0-46.0); Lymphocytes # (auto) 0.9 10 ^3/uL (0.4-5.4); Lymphocytes % (auto) 11.4 % (10.0-50.0); Mean Corpuscular Hemoglobin 19.5 pg (28.0-32.0); Mean Corpuscular Hgb Conc. 30.7 g/dL (32.0-36.0); Mean Corpuscular Volume 63.7 fL (80.0-100.0); Neutrophils # (auto) 5.6 10 ^3/uL (1.6-8.6); Platelet Count (auto) 306 10^3/uL (140-450); Red Blood Cells 3.79 10^6/uL (4.0-5.20)
[2024-02-13 05:53] LABS: BUN/Creatinine Ratio 13.2 (10.0-20.0); Blood Urea Nitrogen 20 mg/dL (9-23)
[2024-02-13 06:01] LABS: Glucose 115 mg/dL (74-106)
[2024-02-13 06:16] LABS: Red Cell Distribution Width 20.4 % (11.8-14.3)
[2024-02-13 06:35] LABS: Anisocytosis Slight; Hypochromia Moderate
[2024-02-13 06:36] LABS: Large Platelets FEW; Stomatocytes Moderate
[2024-02-13 06:37] LABS: Platelet Estimate Adequa
[2024-02-13] MEDS: METOPROLOL SUCCINATE XL 50 MG TAB PO SCH (09:40)
[2024-02-13] MEDS: FUROSEMIDE 40 MG/4 ML VIAL IV SCH (09:40)
--- NOTE | 2024-02-13 10:14 | DVHPN2 ---
Progress Note Date Seen: Feb 13, 2024 Medical Necessity Reason Pt with a Central, PICC or Fol: No Subjective Patient reports: No new complaints Other Systems: Patient seen and examined by myself today in follow-up Objective vital signs Vital Sign Date Time Temp Pulse Resp B/P (MAP) Pulse Ox O2 Delivery O2 Flow Rate FiO2 02/13/24 09:40 124/83 02/13/24 09:40 138 02/13/24 08:00 17 Room Air* 0 02/13/24 07:55 98.4 94 98.4 Total Intake and Output 02/12/24 02/12/24 02/13/24 15:00 23:00 07:00 Intake Total 1473.3 ml 583.369 ml Output Total 800 ml Balance 673.3 ml 583.369 ml medications Current Medications Medications Dose Ordered Sig/Elvin Route Start Time Stop Time Status Last Admin Dose Admin Sodium Chloride 10 ml Q8HR IV 02/11/24 14:00 02/13/24 05:53 Acetaminophen/ Hydrocodone Bitart 1 tab Q4HP PRN PO 02/11/24 09:45 Ondansetron HCl 4 mg Q4HP PRN IV 02/11/24 09:45 Docusate Sodium 100 mg BIDPRN PRN PO 02/11/24 09:45 Acetaminophen 650 mg Q6HP PRN PO 02/11/24 09:45 Allopurinol 100 mg DAILY PO 02/11/24 10:00 02/13/24 09:39 Cholecalciferol 5,000 unit DAILY PO 02/11/24 10:00 02/13/24 09:39 Amiodarone HCl 250 ml @ 16.667 mls/ hr Q15H IV 02/11/24 15:00 02/12/24 23:46 Pantoprazole Sodium 40 mg DAILY IV 02/12/24 10:00 02/13/24 09:40 Metoprolol Succinate 50 mg DAILY PO 02/13/24 10:00 02/13/24 09:40 Furosemide 40 mg DAILY IV 02/13/24 10:00 02/13/24 09:40 Examination: LUNGS:Normal, CVS:Normal, MSK:Normal laboratory and microbiology Laboratory Tests 02/13/24 04:38 Test 02/13/24 04:38 Range/Units Serum Glucose 115 H 74-106 mg/dL Problem List/Assessment/Plan Problem List/Assessment/Plan Acute kidney injury superimposed Chronic Kidney Disease secondary hemodynamic mediated Chronic diastolic heart failure AFib with RVR Gouty arthritis Significant microcytic anemia status post packed red blood cell transfusion Hypokalemia Severe iron deficiency Recommendations Kidney function slowly improving Increased urine output Strict I&Os Kidney ultrasound reported earlier bilateral echogenic kidney Cardiology consult GI consult We will continue to follow Plan discussed with: Patient My Orders My Orders Orders - MEDHAT PALENCIA MD Procedure Category Date Status Time Urine Sodium LAB 02/12/24 Logged 13:54 Urinalysis LAB 02/12/24 Logged 13:54 Urine LAB 02/12/24 Logged Protein/Creatinine 13:54 CC Plasma Assessment Blood Product Administration S: 12:40 MEDHAT PALENCIA MD Feb 13, 2024 10:14
--- NOTE | 2024-02-13 15:21 | DVHPNRES ---
Progress Note Date Seen: Feb 13, 2024 Resident Creating Document: ADELINA BROOKS RESIDENT Medical Necessity Reason Pt with a Central, PICC or Fol: No Subjective Review of Systems 78-year-old female patient with past medical history of pulmonary hypertension, atrial fibrillation (paroxysmal) currently on amiodarone transitioning to oral therapy, current heart failure, hypertension, gout, osteoarthritis, bilateral total hip replacements and severe anemia likely secondary to chronic kidney disease or blood loss. She presented to the emergency department with progressive shortness of breaths over the past 2 weeks. 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 Over the last 2 weeks, she has experienced worsening bilateral lower extremity edema and shortness of breaths, limiting her ability to perform daily activities such as grocery shopping and household course. On arrival she was noted to have atrial fibrillation with rapid ventricular response and was found to be anemic. She received 1 unit of packed red blood cells transfusion during her hospitalization. GI was consulted and they recommend initiated pantoprazole and sucralfate for upper gastrointestinal protection. Cardiology and Nephrology are also on board. Review of systems Constitutional: Reports fatigue and reduced exercise tolerance. Denies fever or weight loss Cardiovascular: Shortness of breaths with the activity. Denies chest pain or palpitations beyond her known atrial fibrillation. Respiratory: Progressive dyspnea\. Denies cough or wheezing GI: Denies nausea, vomiting, melena, hematochezia. Genitourinary denies dysuria or hematuria Musculoskeletal: Bilateral lower extremity swelling. Reports doing pain due to osteoarthritis. Neurological: Denies headache, dizziness or focal neurological deficits. Endocrine no symptoms of thyroid dysfunction. Psychiatry: Denies anxiety or depression Patient seen and examined at bedside, patient is on amiodarone drip due to AFib with RVR, Patient's heart rate was 130+, and raised to 170+ patient was moving, patient's heart rate is still high continue amiodarone Drip. Cardiology consultation appreciated, reviewed all consultation. Objective vital signs Vital Sign Date Time Temp Pulse Resp B/P (MAP) Pulse Ox O2 Delivery O2 Flow Rate FiO2 02/13/24 10:57 98.2 134 20 116/83 (94) 91 98.2 02/13/24 08:00 Room Air* 0 21 Total Intake and Output 02/12/24 02/12/24 02/13/24 15:00 23:00 07:00 Intake Total 1473.3 ml 583.369 ml Output Total 800 ml Balance 673.3 ml 583.369 ml medications Current Medications Medications Dose Ordered Sig/Elvin Route Start Time Stop Time Status Last Admin Dose Admin Sodium Chloride 10 ml Q8HR IV 02/11/24 14:00 02/13/24 13:20 10 ML Acetaminophen/ Hydrocodone Bitart 1 tab Q4HP PRN PO 02/11/24 09:45 Ondansetron HCl 4 mg Q4HP PRN IV 02/11/24 09:45 Docusate Sodium 100 mg BIDPRN PRN PO 02/11/24 09:45 Acetaminophen 650 mg Q6HP PRN PO 02/11/24 09:45 Allopurinol 100 mg DAILY PO 02/11/24 10:00 02/13/24 09:39 100 MG Cholecalciferol 5,000 unit DAILY PO 02/11/24 10:00 02/13/24 09:39 5,000 UNIT Amiodarone HCl 250 ml @ 16.667 mls/ hr Q15H IV 02/11/24 15:00 02/12/24 23:46 16.667 MLS/HR Pantoprazole Sodium 40 mg DAILY IV 02/12/24 10:00 02/13/24 09:40 40 MG Metoprolol Succinate 50 mg DAILY PO 02/13/24 10:00 02/13/24 09:40 50 MG Furosemide 40 mg DAILY IV 02/13/24 10:00 02/13/24 09:40 40 MG Examination General Appearance: Alert, Oriented X3, Cooperative, No acute distress HEENT: EOMI Respiratory: Clear to auscultation, Normal air movement Cardiovascular: Irregular rate and rhythm: Normal S1 and S2 Abdominal: Normal bowel sounds Extremities: No cyanosis, No edema, Normal pulses, No tenderness/swelling, lower extremity edema 2+ Skin: No rashes, No breakdown Neuro: Normal gait, Normal speech, Strength at 5/5 X4 ext, Normal tone, Sensation intact, Cranial nerves 3-12 NL, Reflexes 2+ Psych/Mental Status: Mental status NL, Mood NL. laboratory and microbiology Laboratory Tests 02/13/24 04:38 Test 02/13/24 04:38 Range/Units Serum Glucose 115 H 74-106 mg/dL Problem List/Assessment/Plan Problem List/Assessment/Plan #Acute hypoxemic respiratory failure likely due to systolic/diastolic heart failure exacerbation likely due to severe anemia Oxygen supplementation through nasal cannula Echocardiogram is pending Cardiology consult, on board Metoprolol succinate XL 50 mg daily p.o. Furosemide 40 mg daily IV #Paroxysmal atrial fibrillation exacerbated likely due to severe anemia , chads Vasc 4 points , has bled 2 point Amiodarone IV Metoprolol 50 mg Echocardiogram is pending Cardiology on board #History of gastritis/duodenitis with healing ulcers Pantoprazole 40 p.o. Sucralfate GI on board Clear liquid diet #Acute kidney injury on superimposed chronic kidney disease secondary to hemodynamic mediated As above. Nephrology on board # Gout - Allopurinol 100 mg daily p.o. #Significant microcytic hypochromic anemia status post red blood subsequent fusion -monitor, current hemoglobin 8.1 #Hypokalemia, - replenished case discussed with Dr. Zepeda Code status: Full code Goals of care discussed with the patient for 23 minutes. Plan discussed with: Patient CC Plasma Assessment Blood Product Administration S: 12:40 Date of Service: Feb 13, 2024 Billing Provider: JORGE ZEPEDA MD Common Visit Codes: [id number] INP/OBS CARE(HIGH) ADELINA BROOKS RESIDENT Feb 13, 2024 15:21 JORGE ZEPEDA MD Feb 15, 2024 17:36
--- NOTE | 2024-02-13 20:13 | DVHPN2 ---
Progress Note - Dictate Date Seen: Feb 13, 2024 Medical Necessity Reason Pt with a Central, PICC or Fol: No Subjective Patient was seen at bedside She was sleeping comfortably this morning No active GI bleeding was reported She was tolerating her diet and not complaining of significant upper GI symptoms at this time vital signs Vital Sign Date Time Temp Pulse Resp B/P (MAP) Pulse Ox O2 Delivery O2 Flow Rate FiO2 02/13/24 17:41 97.7 140 18 109/68 (82) 97 97.7 02/13/24 08:00 Room Air* 0 21 Total Intake and Output 02/12/24 02/12/24 02/13/24 15:00 23:00 07:00 Intake Total 1473.3 ml 583.369 ml Output Total 800 ml Balance 673.3 ml 583.369 ml medications Current Medications Medications Dose Ordered Sig/Elvin Route Start Time Stop Time Status Last Admin Dose Admin Sodium Chloride 10 ml Q8HR IV 02/11/24 14:00 02/13/24 13:20 10 ML Acetaminophen/ Hydrocodone Bitart 1 tab Q4HP PRN PO 02/11/24 09:45 Ondansetron HCl 4 mg Q4HP PRN IV 02/11/24 09:45 Docusate Sodium 100 mg BIDPRN PRN PO 02/11/24 09:45 Acetaminophen 650 mg Q6HP PRN PO 02/11/24 09:45 Allopurinol 100 mg DAILY PO 02/11/24 10:00 02/13/24 09:39 100 MG Cholecalciferol 5,000 unit DAILY PO 02/11/24 10:00 02/13/24 09:39 5,000 UNIT Amiodarone HCl 250 ml @ 16.667 mls/ hr Q15H IV 02/11/24 15:00 02/13/24 18:16 16.667 MLS/HR Pantoprazole Sodium 40 mg DAILY IV 02/12/24 10:00 02/13/24 09:40 40 MG Metoprolol Succinate 50 mg DAILY PO 02/13/24 10:00 02/13/24 09:40 50 MG Furosemide 40 mg DAILY IV 02/13/24 10:00 02/13/24 09:40 40 MG objective General: NAD, AAOX3 Chest: lung cabello clear to auscultation Heart: RRR, no murmur Abdomen: non-distended, no tenderness to palpation, +BS laboratory and microbiology Laboratory Tests 02/13/24 04:38 Test 02/13/24 04:38 Range/Units Serum Glucose 115 H 74-106 mg/dL Problems(with codes): (1) Hiatal hernia with GERD without esophagitis (2) Atrial fibrillation and flutter (3) CHF exacerbation (4) Leukocytosis (5) Anemia (6) Coffee ground emesis Prognosis Plan Patient had a midline paste and is on amiodarone drip for AFib At this time I would recommend conservative management from a GI point of view We will start this patient on IV iron Continue Protonix 40 mg p.o. twice a day Carafate 1 g p.o. 4 times a day Patient was advised to DC smoking marijuana and compliance with the PPI we will be encouraged Outpatient follow up with GI Services for elective colonoscopy once medically stabilized Plan discussed with: Patient, Other (Quyen ahndy) CC Plasma Assessment Blood Product Administration S: 12:40 SONYA BARBOSA MD Feb 13, 2024 20:13
--- NOTE | 2024-02-13 20:27 | DVHPN2 ---
Progress Note - Dictate Date Seen: Feb 13, 2024 Medical Necessity Reason Pt with a Central, PICC or Fol: No Subjective Patient was seen and evaluated in follow up. Patient denies any current complaint. Patient is tolerating current diet. 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 Echocardiogram.shows an EF of 65%. vital signs Vital Sign Date Time Temp Pulse Resp B/P (MAP) Pulse Ox O2 Delivery O2 Flow Rate FiO2 02/13/24 10:57 98.2 134 20 116/83 (94) 91 98.2 02/13/24 08:00 Room Air* 0 21 Total Intake and Output 02/12/24 02/12/24 02/13/24 15:00 23:00 07:00 Intake Total 1473.3 ml 583.369 ml Output Total 800 ml Balance 673.3 ml 583.369 ml medications Current Medications Medications Dose Ordered Sig/Elvin Route Start Time Stop Time Status Last Admin Dose Admin Sodium Chloride 10 ml Q8HR IV 02/11/24 14:00 02/13/24 05:53 10 ML Acetaminophen/ Hydrocodone Bitart 1 tab Q4HP PRN PO 02/11/24 09:45 Ondansetron HCl 4 mg Q4HP PRN IV 02/11/24 09:45 Docusate Sodium 100 mg BIDPRN PRN PO 02/11/24 09:45 Acetaminophen 650 mg Q6HP PRN PO 02/11/24 09:45 Allopurinol 100 mg DAILY PO 02/11/24 10:00 02/13/24 09:39 100 MG Cholecalciferol 5,000 unit DAILY PO 02/11/24 10:00 02/13/24 09:39 5,000 UNIT Amiodarone HCl 250 ml @ 16.667 mls/ hr Q15H IV 02/11/24 15:00 02/12/24 23:46 16.667 MLS/HR Pantoprazole Sodium 40 mg DAILY IV 02/12/24 10:00 02/13/24 09:40 40 MG Metoprolol Succinate 50 mg DAILY PO 02/13/24 10:00 02/13/24 09:40 50 MG Furosemide 40 mg DAILY IV 02/13/24 10:00 02/13/24 09:40 40 MG objective GENERAL: Awake, alert, oriented. LUNGS: Clear. CARDIOVASCULAR: A-fib. ABDOMEN: Soft. EXT: 3+ BLE edema. laboratory and microbiology Laboratory Tests 02/13/24 04:38 Test 02/13/24 04:38 Range/Units Serum Glucose 115 H 74-106 mg/dL Problem List CHF exacerbation. Atrial fibrillation and flutter. Anemia. Acute Kidney injury. Gout. Pulmonary hypertension. Assessment/Plan Continued all current supportive medical care. [place] for pain management. Amiodarone. Aspirin, Metoprolol. Diuretics with Lasix. GI prophylactics. Additional plan as per the hospital course. Plan discussed with: Patient CC Plasma Assessment Blood Product Administration S: 12:40 AMANDA DE LEON MD Feb 13, 2024 11:45
[2024-02-13] MEDS: DOCUSATE SOD 100 MG CAP PO PRN (21:01)
[2024-02-14] VITALS (11 sets, daily range): BP systolic 85–119; BP diastolic 54–78; PULSE 73–124; RESP 9–20; TEMP 97.9–98.8; O2SAT 91–96
[2024-02-14] MEDS: METOPROLOL SUCCINATE XL 50 MG TAB PO SCH (09:22)
[2024-02-14 09:46] LABS: Hemoglobin 7.6 g/dL (12.2-16.2); Mean Corpuscular Hemoglobin 19.4 pg (28.0-32.0); Mean Corpuscular Hgb Conc. 29.2 g/dL (32.0-36.0); Mean Corpuscular Volume 66.4 fL (80.0-100.0); Platelet Count (auto) 276 10^3/uL (140-450); Red Blood Cells 3.91 10^6/uL (4.0-5.20); White Blood Cell 8.7 10^3/uL (4.4-10.8)
[2024-02-14 09:48] LABS: Red Cell Distribution Width 20.5 % (11.8-14.3)
[2024-02-14 09:49] LABS: Band Neutrophils % (manual) 0; Basophils % (manual) 0 (0.0-2.0); Blast Cells 0; Metamyelocytes % 0; Myelocytes % 0; Promyelocytes % 0; Reactive Lymphocytes 0
[2024-02-14 09:53] LABS: Chloride 101 mmol/L (98-107); Potassium 3.6 mmol/L (3.5-5.1); Sodium 136 mmol/L (136-145)
[2024-02-14 09:54] LABS: Anion Gap 9 (5-15); Carbon Dioxide 26 mmol/L (20-31)
[2024-02-14 09:55] LABS: Calcium 9.4 mg/dL (8.7-10.4)
[2024-02-14 10:00] LABS: BUN/Creatinine Ratio 11.3 (10.0-20.0); Blood Urea Nitrogen 17 mg/dL (9-23)
[2024-02-14 10:07] LABS: Glucose 183 mg/dL (74-106)
[2024-02-14 10:14] LABS: Anisocytosis Slight; Eosinophils % (manual) 1 (0-7); Lymphocytes % (manual) 13 (10.0-50.0); Monocytes % (manual) 13 (0-12)
[2024-02-14 10:15] LABS: Hypochromia Moderate; Large Platelets FEW; Platelet Estimate Adequa
--- NOTE | 2024-02-14 12:20 | DVHPN2 ---
Progress Note Date Seen: Feb 14, 2024 Medical Necessity Reason Pt with a Central, PICC or Fol: No Subjective Patient reports: No new complaints Other Systems: Patient seen and examined by myself today in follow-up Objective vital signs Vital Sign Date Time Temp Pulse Resp B/P (MAP) Pulse Ox O2 Delivery O2 Flow Rate FiO2 02/14/24 09:22 103 119/78 02/14/24 09:00 98.8 18 95 98.8 02/14/24 07:41 Room Air* 0 21 Total Intake and Output 02/13/24 02/13/24 02/14/24 15:00 23:00 07:00 Intake Total 1434.3 ml 825 ml Output Total 875 ml Balance 559.3 ml 825 ml medications Current Medications Medications Dose Ordered Sig/Elvin Route Start Time Stop Time Status Last Admin Dose Admin Sodium Chloride 10 ml Q8HR IV 02/11/24 14:00 02/14/24 05:57 10 ML Acetaminophen/ Hydrocodone Bitart 1 tab Q4HP PRN PO 02/11/24 09:45 Ondansetron HCl 4 mg Q4HP PRN IV 02/11/24 09:45 Docusate Sodium 100 mg BIDPRN PRN PO 02/11/24 09:45 02/14/24 09:21 100 MG Acetaminophen 650 mg Q6HP PRN PO 02/11/24 09:45 Allopurinol 100 mg DAILY PO 02/11/24 10:00 02/14/24 09:21 100 MG Cholecalciferol 5,000 unit DAILY PO 02/11/24 10:00 02/14/24 09:21 5,000 UNIT Amiodarone HCl 250 ml @ 16.667 mls/ hr Q15H IV 02/11/24 15:00 02/14/24 09:19 16.667 MLS/HR Pantoprazole Sodium 40 mg DAILY IV 02/12/24 10:00 02/14/24 09:20 40 MG Furosemide 40 mg DAILY IV 02/13/24 10:00 02/14/24 09:20 40 MG Metoprolol Succinate 100 mg DAILY PO 02/14/24 10:00 02/14/24 09:22 100 MG Examination: LUNGS:Normal, CVS:Normal, MSK:Normal laboratory and microbiology Laboratory Tests 02/14/24 08:31 Test 02/14/24 08:31 Range/Units Serum Glucose 183 H 74-106 mg/dL Problem List/Assessment/Plan Problem List/Assessment/Plan Acute kidney injury superimposed Chronic Kidney Disease secondary hemodynamic mediated Chronic diastolic heart failure AFib with RVR Gouty arthritis Significant microcytic anemia status post packed red blood cell transfusion Hypokalemia Severe iron deficiency Recommendations Kidney function stabilize stage IIIb Increased urine output Strict I&Os Kidney ultrasound reported earlier bilateral echogenic kidney Cardiology consult GI consult We will continue to follow Plan discussed with: Patient CC Plasma Assessment Blood Product Administration S: 12:40 MEDHAT PALENCIA MD Feb 14, 2024 12:20
[2024-02-14] MEDS: AMIODARONE HCL 200 MG TAB PO ONE (14:28)
--- NOTE | 2024-02-14 16:03 | DVHPN2 ---
Progress Note - Dictate Date Seen: Feb 14, 2024 Medical Necessity Reason Pt with a Central, PICC or Fol: No Subjective Patient was seen and evaluated in follow up. No overnight events. Patient is resting in bed. She denies any pain or discomfort. Patient in A Fib, receiving IV Amiodarone. 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 vital signs Vital Sign Date Time Temp Pulse Resp B/P (MAP) Pulse Ox O2 Delivery O2 Flow Rate FiO2 02/14/24 13:00 98.3 73 20 98/67 (77) 92 98.3 02/14/24 07:41 Room Air* 0 21 Total Intake and Output 02/13/24 02/13/24 02/14/24 15:00 23:00 07:00 Intake Total 1434.3 ml 825 ml Output Total 875 ml Balance 559.3 ml 825 ml medications Current Medications Medications Dose Ordered Sig/Elvin Route Start Time Stop Time Status Last Admin Dose Admin Sodium Chloride 10 ml Q8HR IV 02/11/24 14:00 02/14/24 05:57 10 ML Acetaminophen/ Hydrocodone Bitart 1 tab Q4HP PRN PO 02/11/24 09:45 Ondansetron HCl 4 mg Q4HP PRN IV 02/11/24 09:45 Docusate Sodium 100 mg BIDPRN PRN PO 02/11/24 09:45 02/14/24 09:21 100 MG Acetaminophen 650 mg Q6HP PRN PO 02/11/24 09:45 Allopurinol 100 mg DAILY PO 02/11/24 10:00 02/14/24 09:21 100 MG Cholecalciferol 5,000 unit DAILY PO 02/11/24 10:00 02/14/24 09:21 5,000 UNIT Furosemide 40 mg DAILY IV 02/13/24 10:00 02/14/24 09:20 40 MG Metoprolol Succinate 100 mg DAILY PO 02/14/24 10:00 02/14/24 09:22 100 MG Amiodarone HCl 400 mg Q12HR PO 02/14/24 22:00 UNV Sucralfate 1 gm QIDACHS PO 02/14/24 17:00 Pantoprazole Sodium 40 mg BID@0600,1700 PO 02/14/24 17:00 Iron Sucrose 110 ml @ 110 mls/hr DAILY@1200 IV 02/15/24 12:00 02/19/24 12:59 UNV objective GENERAL: Awake, alert, oriented. LUNGS: Clear. CARDIOVASCULAR: A-fib. ABDOMEN: Soft. EXT: 3+ BLE edema. laboratory and microbiology Laboratory Tests 02/14/24 08:31 Test 02/14/24 08:31 Range/Units Serum Glucose 183 H 74-106 mg/dL Problem List CHF exacerbation. Atrial fibrillation and flutter. Anemia. Acute Kidney injury. Gout. Pulmonary hypertension. Assessment/Plan Continued all current supportive medical care. [place] for pain management. IV Amiodarone. Aspirin, Metoprolol. Diuretics with Lasix. GI prophylactics. Additional plan as per the hospital course. Plan discussed with: Patient CC Plasma Assessment Blood Product Administration S: 12:40 AMANDA DE LEON MD Feb 14, 2024 14:08
[2024-02-14] MEDS: PANTOPRAZOLE 40 MG TAB PO SCH (16:54)
[2024-02-14] MEDS: SUCRALFATE 1 GM TAB PO SCH (16:54)
[2024-02-14] MEDS ORDERED: AMIODARONE 450mg/250ml AE 250 ML IV SCH (18:00)
--- NOTE | 2024-02-14 18:01 | DVHPNRES ---
Progress Note Date Seen: Feb 14, 2024 Resident Creating Document: TOM COTTO RESIDENT Medical Necessity Reason Pt with a Central, PICC or Fol: No Subjective Review of Systems 78-year-old female patient with past medical history of pulmonary hypertension, atrial fibrillation (paroxysmal) currently on amiodarone transitioning to oral therapy, current heart failure, hypertension, gout, osteoarthritis, bilateral total hip replacements and severe anemia likely secondary to chronic kidney disease or blood loss. She presented to the emergency department with progressive shortness of breaths over the past 2 weeks. 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 Over the last 2 weeks, she has experienced worsening bilateral lower extremity edema and shortness of breaths, limiting her ability to perform daily activities such as grocery shopping and household course. On arrival she was noted to have atrial fibrillation with rapid ventricular response and was found to be anemic. She received 1 unit of packed red blood cells transfusion during her hospitalization. GI was consulted and they recommend initiated pantoprazole and sucralfate for upper gastrointestinal protection. Cardiology and Nephrology are also on board. Amiodarone 400 mg p.o. b.i.d. FOBT pending Current hemoglobin level 7.6 Review of systems Constitutional: Reports fatigue and reduced exercise tolerance. Denies fever or weight loss Cardiovascular: Shortness of breaths with the activity. Denies chest pain or palpitations beyond her known atrial fibrillation. Respiratory: Progressive dyspnea\. Denies cough or wheezing GI: Denies nausea, vomiting, melena, hematochezia. Genitourinary denies dysuria or hematuria Musculoskeletal: Bilateral lower extremity swelling. Reports doing pain due to osteoarthritis. Neurological: Denies headache, dizziness or focal neurological deficits. Endocrine no symptoms of thyroid dysfunction. Psychiatry: Denies anxiety or depression Patient reports: Feels better Changes from previous H/P or p: Changes Objective vital signs Vital Sign Date Time Temp Pulse Resp B/P (MAP) Pulse Ox O2 Delivery O2 Flow Rate FiO2 02/14/24 17:00 98.4 108 20 103/66 (78) 96 98.4 02/14/24 07:41 Room Air* 0 21 Total Intake and Output 02/13/24 02/13/24 02/14/24 15:00 23:00 07:00 Intake Total 1434.3 ml 825 ml Output Total 875 ml Balance 559.3 ml 825 ml medications Current Medications Medications Dose Ordered Sig/Elvin Route Start Time Stop Time Status Last Admin Dose Admin Sodium Chloride 10 ml Q8HR IV 02/11/24 14:00 02/14/24 14:27 10 ML Acetaminophen/ Hydrocodone Bitart 1 tab Q4HP PRN PO 02/11/24 09:45 Ondansetron HCl 4 mg Q4HP PRN IV 02/11/24 09:45 Docusate Sodium 100 mg BIDPRN PRN PO 02/11/24 09:45 02/14/24 09:21 100 MG Acetaminophen 650 mg Q6HP PRN PO 02/11/24 09:45 Allopurinol 100 mg DAILY PO 02/11/24 10:00 02/14/24 09:21 100 MG Cholecalciferol 5,000 unit DAILY PO 02/11/24 10:00 02/14/24 09:21 5,000 UNIT Furosemide 40 mg DAILY IV 02/13/24 10:00 02/14/24 09:20 40 MG Metoprolol Succinate 100 mg DAILY PO 02/14/24 10:00 02/14/24 09:22 100 MG Amiodarone HCl 400 mg Q12HR PO 02/14/24 22:00 Sucralfate 1 gm QIDACHS PO 02/14/24 17:00 02/14/24 16:54 1 GM Pantoprazole Sodium 40 mg BID@0600,1700 PO 02/14/24 17:00 02/14/24 16:54 40 MG Iron Sucrose 110 ml @ 110 mls/hr DAILY@1200 IV 02/15/24 12:00 02/19/24 12:59 Examination Examination General Appearance: Alert, Oriented X3, Cooperative, No acute distress Respiratory: Clear to auscultation, Normal air movement Cardiovascular: Irregular rhythm rhythm, normal S1, normal S2 Abdominal: Normal bowel sounds Extremities: No cyanosis, No edema, Normal pulses, No tenderness/swelling Skin: No rashes, No breakdown Neuro: Normal gait, Normal speech, Strength at 5/5 X4 ext, Normal tone, Sensation intact, Cranial nerves 3-12 NL, Reflexes 2+ Psych/Mental Status: Mental status NL, Mood NL laboratory and microbiology Laboratory Tests 02/14/24 08:31 Test 02/14/24 08:31 Range/Units Serum Glucose 183 H 74-106 mg/dL Problem List/Assessment/Plan Problem List/Assessment/Plan #Acute hypoxemic respiratory failure likely due to systolic/diastolic heart failure exacerbation likely due to severe anemia Room air Telemetry Echocardiogram 65% ejection fraction Cardiology consult, on board Metoprolol succinate XL 100 mg daily p.o. Furosemide 40 mg daily IV #Paroxysmal atrial fibrillation exacerbated likely due to severe anemia , chads Vasc 4 points , has bled 2 point Amiodarone 400 mg p.o. b.i.d. Metoprolol 100 mg Echocardiogram 65% ejection fraction Cardiology on board #History of gastritis/duodenitis with healing ulcers Pantoprazole 40 p.o. Sucralfate GI on board Soft diet #Acute kidney injury on superimposed chronic kidney disease secondary to hemodynamic mediated As above. Nephrology on board #Gout Allopurinol 100 mg daily p.o. #Significant microcytic hypochromic anemia status post red blood subsequent fusion -monitor, current hemoglobin 8.1 #Hypokalemia, replenished case discussed with Dr. Zepeda Code status: Full code Goals of care discussed with the patient for 36 minutes. Plan discussed with: Patient My Orders My Orders Orders - TOM COTTO RESIDENT Procedure Category Date Status Time Metoprolol Xl PHA 02/14/24 In Process Succinate (Toprol Xl) 10:00 Cardiac DIET 02/14/24 Transmitted Diet-2gna,Lofat,Lochol Lunch Sucralfate Tab PHA 02/14/24 In Process (Carafate Tab) 17:00 Pantoprazole Tablet PHA 02/14/24 In Process (Protonix Tablet) 17:00 Iron Sucrose Complex PHA 02/15/24 In Process (Venofer) 12:00 CC Plasma Assessment Blood Product Administration S: 12:40 Date of Service: Feb 14, 2024 Billing Provider: JORGE ZEPEDA MD Common Visit Codes: [id number] INP/OBS CARE(HIGH) TOM COTTO RESIDENT Feb 14, 2024 18:01 JORGE ZEPEDA MD Feb 15, 2024 17:37
[2024-02-14] MEDS: SODIUM CHLORIDE 0.9% 500 ML IV ONE (21:06)
[2024-02-14] MEDS: AMIODARONE HCL 200 MG TAB PO SCH (22:00)
--- NOTE | 2024-02-14 23:16 | DVHPN2 ---
Progress Note - Dictate Date Seen: Feb 14, 2024 Medical Necessity Reason Pt with a Central, PICC or Fol: No Subjective Patient was seen at bedside , awake alert and ambulating She was sleeping comfortably this morning No active GI bleeding was reported ; patient denies significant heartburn She was tolerating her diet and not complaining of significant upper GI symptoms at this time vital signs Vital Sign Date Time Temp Pulse Resp B/P (MAP) Pulse Ox O2 Delivery O2 Flow Rate FiO2 02/14/24 22:19 92/68 (76) 02/14/24 21:00 97.9 98 19 93 97.9 02/14/24 20:00 Room Air* 0 21 Total Intake and Output 02/13/24 02/13/24 02/14/24 15:00 23:00 07:00 Intake Total 1434.3 ml 825 ml Output Total 875 ml Balance 559.3 ml 825 ml medications Current Medications Medications Dose Ordered Sig/Elvin Route Start Time Stop Time Status Last Admin Dose Admin Sodium Chloride 10 ml Q8HR IV 02/11/24 14:00 02/14/24 21:01 10 ML Acetaminophen/ Hydrocodone Bitart 1 tab Q4HP PRN PO 02/11/24 09:45 Ondansetron HCl 4 mg Q4HP PRN IV 02/11/24 09:45 Docusate Sodium 100 mg BIDPRN PRN PO 02/11/24 09:45 02/14/24 09:21 100 MG Acetaminophen 650 mg Q6HP PRN PO 02/11/24 09:45 Allopurinol 100 mg DAILY PO 02/11/24 10:00 02/14/24 09:21 100 MG Cholecalciferol 5,000 unit DAILY PO 02/11/24 10:00 02/14/24 09:21 5,000 UNIT Furosemide 40 mg DAILY IV 02/13/24 10:00 02/14/24 09:20 40 MG Metoprolol Succinate 100 mg DAILY PO 02/14/24 10:00 02/14/24 09:22 100 MG Amiodarone HCl 400 mg Q12HR PO 02/14/24 22:00 Sucralfate 1 gm QIDACHS PO 02/14/24 17:00 02/14/24 21:02 1 GM Pantoprazole Sodium 40 mg BID@0600,1700 PO 02/14/24 17:00 02/14/24 16:54 40 MG Iron Sucrose 110 ml @ 110 mls/hr DAILY@1200 IV 02/15/24 12:00 02/19/24 12:59 objective General: NAD, AAOX3 Chest: lung cabello clear to auscultation Heart: RRR, no murmur Abdomen: non-distended, no tenderness to palpation, +BS laboratory and microbiology Laboratory Tests 02/14/24 08:31 Test 02/14/24 08:31 Range/Units Serum Glucose 183 H 74-106 mg/dL Problems(with codes): (1) Hiatal hernia with GERD without esophagitis (2) CHF exacerbation (3) Coffee ground emesis (4) Leukocytosis (5) Anemia (6) Atrial fibrillation and flutter Prognosis Plan Continue Protonix 40 mg p.o. twice a day Carafate 1 g p.o. twice a day Lifestyle and dietary modifications for GERD Patient is scheduled for an outpatient elective colonoscopy in February She is requesting a possible EGD and colonoscopy on the same day which I will arrange as an outpatient I will follow up patient with you, once again thank you for allowing me to participate in the care of this patient Plan discussed with: Patient CC Plasma Assessment Blood Product Administration S: 12:40 SONYA BARBOSA MD Feb 14, 2024 23:16
[2024-02-15] VITALS (12 sets, daily range): BP systolic 92–128; BP diastolic 60–82; PULSE 61–117; RESP 14–20; TEMP 97.6–98.1; O2SAT 86–100
[2024-02-15 07:29] LABS: Anion Gap 9 (5-15); Calcium 9.6 mg/dL (8.7-10.4); Carbon Dioxide 27 mmol/L (20-31); Chloride 102 mmol/L (98-107); Potassium 3.5 mmol/L (3.5-5.1); Sodium 138 mmol/L (136-145)
[2024-02-15 07:35] LABS: BUN/Creatinine Ratio 12.4 (10.0-20.0); Blood Urea Nitrogen 21 mg/dL (9-23); Glucose 124 mg/dL (74-106)
[2024-02-15 07:36] LABS: Basophils # (auto) 0.1 10 ^3/uL (0-0.2)
[2024-02-15 07:37] LABS: Basophils % (auto) 0.8 % (0.0-2.0); Eosinophils # (auto) 0.1 10 ^3/uL (0-0.8); Eosinophils % (auto) 1.4 % (0.0-7.0); Hematocrit 26.3 % (36.0-46.0); Hemoglobin 7.8 g/dL (12.2-16.2); Lymphocytes % (auto) 19.7 % (10.0-50.0); Mean Corpuscular Hemoglobin 19.4 pg (28.0-32.0); Mean Corpuscular Hgb Conc. 29.4 g/dL (32.0-36.0); Mean Corpuscular Volume 65.9 fL (80.0-100.0); Neutrophils # (auto) 5.8 10 ^3/uL (1.6-8.6); Neutrophils % (auto) 58.1 % (37.0-80.0); Platelet Count (auto) 274 10^3/uL (140-450)
[2024-02-15 07:39] LABS: Red Cell Distribution Width 21.1 % (11.8-14.3)
[2024-02-15] MEDS: IRON SUCROSE COMPLEX 110 ML IV SCH (11:35)
--- NOTE | 2024-02-15 15:52 | DVHPN2 ---
Progress Note Date Seen: Feb 15, 2024 Medical Necessity Reason Pt with a Central, PICC or Fol: No Subjective Patient reports: Feels better Review of Systems: GI:Abnormal Objective vital signs Vital Sign Date Time Temp Pulse Resp B/P (MAP) Pulse Ox O2 Delivery O2 Flow Rate FiO2 02/15/24 12:44 98.0 88 18 112/73 (86) 94 98.0 02/15/24 08:08 Room Air* 0 21 Total Intake and Output 02/14/24 02/14/24 02/15/24 15:00 23:00 07:00 Intake Total 236 ml 595.8 ml 1200 ml Output Total 700 ml Balance 236 ml -104.2 ml 1200 ml medications Current Medications Medications Dose Ordered Sig/Elvin Route Start Time Stop Time Status Last Admin Dose Admin Sodium Chloride 10 ml Q8HR IV 02/11/24 14:00 02/15/24 13:52 10 ML Acetaminophen/ Hydrocodone Bitart 1 tab Q4HP PRN PO 02/11/24 09:45 Ondansetron HCl 4 mg Q4HP PRN IV 02/11/24 09:45 Docusate Sodium 100 mg BIDPRN PRN PO 02/11/24 09:45 02/14/24 09:21 100 MG Acetaminophen 650 mg Q6HP PRN PO 02/11/24 09:45 Allopurinol 100 mg DAILY PO 02/11/24 10:00 02/15/24 09:07 100 MG Cholecalciferol 5,000 unit DAILY PO 02/11/24 10:00 02/15/24 09:07 5,000 UNIT Furosemide 40 mg DAILY IV 02/13/24 10:00 02/15/24 09:09 40 MG Metoprolol Succinate 100 mg DAILY PO 02/14/24 10:00 02/15/24 09:09 100 MG Amiodarone HCl 400 mg Q12HR PO 02/14/24 22:00 02/15/24 09:08 400 MG Sucralfate 1 gm QIDACHS PO 02/14/24 17:00 02/15/24 11:36 1 GM Pantoprazole Sodium 40 mg BID@0600,1700 PO 02/14/24 17:00 02/15/24 05:09 40 MG Iron Sucrose 110 ml @ 110 mls/hr DAILY@1200 IV 02/15/24 12:00 02/19/24 12:59 02/15/24 11:35 110 MLS/HR Examination: GENERAL:Normal, CVS:Abnormal, ABDOMEN:Normal laboratory and microbiology Laboratory Tests 02/15/24 06:18 Test 02/15/24 06:18 Range/Units Serum Glucose 124 H 74-106 mg/dL Problem List/Assessment/Plan Problem List/Assessment/Plan Acute kidney injury superimposed Chronic Kidney Disease secondary hemodynamic mediated Chronic diastolic heart failure AFib with RVR Gouty arthritis Significant microcytic anemia status post packed red blood cell transfusion Hypokalemia Severe iron deficiency Increased urine output Strict I&Os Kidney ultrasound reported earlier bilateral echogenic kidney Cardiology consult GI consult We will continue to follow Plan discussed with: Patient CC Plasma Assessment Blood Product Administration S: 12:40 SHANNA HOGAN MD Feb 15, 2024 15:52
--- NOTE | 2024-02-15 18:28 | DVHPNRES ---
Progress Note Date Seen: Feb 15, 2024 Resident Creating Document: TOM COTTO RESIDENT Medical Necessity Reason Pt with a Central, PICC or Fol: No Subjective Review of Systems 78-year-old female patient with past medical history of pulmonary hypertension, atrial fibrillation (paroxysmal) currently on amiodarone transitioning to oral therapy, current heart failure, hypertension, gout, osteoarthritis, bilateral total hip replacements and severe anemia likely secondary to chronic kidney disease or blood loss. She presented to the emergency department with progressive shortness of breaths over the past 2 weeks. The patient reports that her symptoms began after her split leather mosser continue Lasix and initiated torsemide. Over the last 2 weeks, she has experienced worsening bilateral lower extremity edema and shortness of breaths, limiting her ability to perform daily activities such as grocery shopping and household course. On arrival she was noted to have atrial fibrillation with rapid ventricular response and was found to be anemic. She received 1 unit of packed red blood cells transfusion during her hospitalization. GI was consulted and they recommend initiated pantoprazole and sucralfate for upper gastrointestinal protection. . Heart rate still peaking until 120 , and hb remained low int 7,8 so based on her current symptoms of shortness of breath we ordered a new blood transfusion , we will continue monitoring closely, possible discharge for tomorrow based on patient clinical status. Patient reports: No new complaints Objective vital signs Vital Sign Date Time Temp Pulse Resp B/P (MAP) Pulse Ox O2 Delivery O2 Flow Rate FiO2 02/15/24 16:56 98.0 61 20 92/60 (71) 89 98.0 02/15/24 08:08 Room Air* 0 21 Total Intake and Output 02/14/24 02/14/24 02/15/24 15:00 23:00 07:00 Intake Total 236 ml 595.8 ml 1200 ml Output Total 700 ml Balance 236 ml -104.2 ml 1200 ml medications Current Medications Medications Dose Ordered Sig/Elvin Route Start Time Stop Time Status Last Admin Dose Admin Sodium Chloride 10 ml Q8HR IV 02/11/24 14:00 02/15/24 13:52 10 ML Acetaminophen/ Hydrocodone Bitart 1 tab Q4HP PRN PO 02/11/24 09:45 Ondansetron HCl 4 mg Q4HP PRN IV 02/11/24 09:45 Docusate Sodium 100 mg BIDPRN PRN PO 02/11/24 09:45 02/14/24 09:21 100 MG Acetaminophen 650 mg Q6HP PRN PO 02/11/24 09:45 Allopurinol 100 mg DAILY PO 02/11/24 10:00 02/15/24 09:07 100 MG Cholecalciferol 5,000 unit DAILY PO 02/11/24 10:00 02/15/24 09:07 5,000 UNIT Furosemide 40 mg DAILY IV 02/13/24 10:00 02/15/24 09:09 40 MG Metoprolol Succinate 100 mg DAILY PO 02/14/24 10:00 02/15/24 09:09 100 MG Amiodarone HCl 400 mg Q12HR PO 02/14/24 22:00 02/15/24 09:08 400 MG Sucralfate 1 gm QIDACHS PO 02/14/24 17:00 02/15/24 17:33 1 GM Pantoprazole Sodium 40 mg BID@0600,1700 PO 02/14/24 17:00 02/15/24 17:33 40 MG Iron Sucrose 110 ml @ 110 mls/hr DAILY@1200 IV 02/15/24 12:00 02/19/24 12:59 02/15/24 11:35 110 MLS/HR Examination General Appearance: Alert, Oriented X3, Cooperative, No acute distress Respiratory: Clear to auscultation, Normal air movement Cardiovascular: Irregular rhythm rhythm, normal S1, normal S2 Abdominal: Normal bowel sounds Extremities: No cyanosis, No edema, Normal pulses, No tenderness/swelling Skin: No rashes, No breakdown Neuro: Normal gait, Normal speech, Strength at 4/5 X4 ext, Normal tone, Sensation intact, Cranial nerves 3-12 NL, Reflexes 2+ Psych/Mental Status: Mental status NL, Mood NL laboratory and microbiology Laboratory Tests 02/15/24 06:18 Test 02/15/24 06:18 Range/Units Serum Glucose 124 H 74-106 mg/dL Problem List/Assessment/Plan Problem List/Assessment/Plan #Acute hypoxemic respiratory failure likely due to due to severe anemia, HFpEF mild exacerbation #Severe pulmonary hypertension #Atrial fibrillation #Genaralized weakness Room air Telemetry Echocardiogram 65% ejection fraction Cardiology consult, on board Metoprolol succinate XL 100 mg daily p.o. Furosemide 40 mg daily IV #Paroxysmal atrial fibrillation exacerbated likely due to severe anemia , chads Vasc 4 points , has bled 2 point Amiodarone 400 mg p.o. b.i.d. Metoprolol 100 mg Echocardiogram 65% ejection fraction Cardiology on board #History of gastritis/duodenitis with healing ulcers Pantoprazole 40 p.o. Sucralfate GI on board Soft diet #Acute kidney injury on superimposed chronic kidney disease secondary to hemodynamic mediated As above. Nephrology on board #Gout Allopurinol 100 mg daily p.o. #Significant microcytic hypochromic anemia status post red blood subsequent fusion #moderate Stomatocytes on cbc - monitor, current hemoglobin 7,8 - New order for blood transfusion - Peripheral blood smear #Hypokalemia, replenished case discussed with Dr. Zepeda Code status: Full code Goals of care discussed with the patient for 36 minutes. Plan discussed with: Patient My Orders My Orders Orders - TOM COTTO RESIDENT Procedure Category Date Status Time * Hr Generalist CONS 02/15/24 Transmitted Consult Hemoglobin & LAB 02/15/24 Logged Hematocrit 16:22 Communication Order ORDERS 02/15/24 Transmitted 16:24 CC Plasma Assessment Blood Product Administration S: 12:40 Date of Service: Feb 15, 2024 Billing Provider: JORGE ZEPEDA MD Common Visit Codes: [id number] INP/OBS CARE(HIGH) TOM COTTO RESIDENT Feb 15, 2024 18:28 JORGE ZEPEDA MD Feb 16, 2024 20:51
[2024-02-15 19:06] LABS: Hemoglobin 8.8 g/dL (12.2-16.2)
--- NOTE | 2024-02-15 22:51 | DVHPN2 ---
Progress Note - Dictate Date Seen: Feb 15, 2024 Medical Necessity Reason Pt with a Central, PICC or Fol: No Subjective Patient was seen and evaluated in follow up. No overnight events. Patients HR is better controlled today. She denies any chest pain or palpitations. HGB 8.8, HCT 29, House Principal 1.69. vital signs Vital Sign Date Time Temp Pulse Resp B/P (MAP) Pulse Ox O2 Delivery O2 Flow Rate FiO2 02/15/24 21:00 98.1 82 18 104/67 (79) 95 98.1 02/15/24 19:42 Nasal Cannula* 2 28 Total Intake and Output 02/14/24 02/14/24 02/15/24 15:00 23:00 07:00 Intake Total 236 ml 595.8 ml 1200 ml Output Total 700 ml Balance 236 ml -104.2 ml 1200 ml medications Current Medications Medications Dose Ordered Sig/Elvin Route Start Time Stop Time Status Last Admin Dose Admin Sodium Chloride 10 ml Q8HR IV 02/11/24 14:00 02/15/24 21:12 10 ML Acetaminophen/ Hydrocodone Bitart 1 tab Q4HP PRN PO 02/11/24 09:45 Ondansetron HCl 4 mg Q4HP PRN IV 02/11/24 09:45 Docusate Sodium 100 mg BIDPRN PRN PO 02/11/24 09:45 02/14/24 09:21 100 MG Acetaminophen 650 mg Q6HP PRN PO 02/11/24 09:45 Allopurinol 100 mg DAILY PO 02/11/24 10:00 02/15/24 09:07 100 MG Cholecalciferol 5,000 unit DAILY PO 02/11/24 10:00 02/15/24 09:07 5,000 UNIT Furosemide 40 mg DAILY IV 02/13/24 10:00 02/15/24 09:09 40 MG Metoprolol Succinate 100 mg DAILY PO 02/14/24 10:00 02/15/24 09:09 100 MG Amiodarone HCl 400 mg Q12HR PO 02/14/24 22:00 02/15/24 21:12 400 MG Sucralfate 1 gm QIDACHS PO 02/14/24 17:00 02/15/24 21:12 1 GM Pantoprazole Sodium 40 mg BID@0600,1700 PO 02/14/24 17:00 02/15/24 17:33 40 MG Iron Sucrose 110 ml @ 110 mls/hr DAILY@1200 IV 02/15/24 12:00 02/19/24 12:59 02/15/24 11:35 110 MLS/HR objective GENERAL: Awake, alert, oriented. LUNGS: Clear. CARDIOVASCULAR: A-fib. ABDOMEN: Soft. EXT: 3+ BLE edema. laboratory and microbiology Laboratory Tests 02/15/24 18:48 02/15/24 06:18 Test 02/15/24 06:18 Range/Units Serum Glucose 124 H 74-106 mg/dL Problem List CHF exacerbation. Atrial fibrillation and flutter. Anemia. Acute Kidney injury. Gout. Pulmonary hypertension. Assessment/Plan Continued all current supportive medical care. [place] for pain management. IV Amiodarone. Aspirin, Metoprolol. Diuretics with Lasix. GI prophylactics. Additional plan as per the hospital course. Plan discussed with: Patient CC Plasma Assessment Blood Product Administration S: 12:40 AMANDA DE LEON MD Feb 15, 2024 22:51
[2024-02-16 05:00] VITALS: BP 115/65; PULSE 87; RESP 19; TEMP 97.8; O2SAT 94
[2024-02-16 06:42] LABS: Basophils # (auto) 0.1 10 ^3/uL (0-0.2); Basophils % (auto) 1.1 % (0.0-2.0); Eosinophils # (auto) 0.2 10 ^3/uL (0-0.8); Hemoglobin 9.1 g/dL (12.2-16.2)
[2024-02-16 06:44] LABS: Eosinophils % (auto) 1.9 % (0.0-7.0); Hematocrit 29.5 % (36.0-46.0); Lymphocytes # (auto) 2.1 10 ^3/uL (0.4-5.4); Lymphocytes % (auto) 20.5 % (10.0-50.0); Mean Corpuscular Hemoglobin 20.5 pg (28.0-32.0); Mean Corpuscular Hgb Conc. 30.7 g/dL (32.0-36.0); Mean Corpuscular Volume 66.8 fL (80.0-100.0); Monocytes # (auto) 1.8 10 ^3/uL (0-1.3); Monocytes % (auto) 17.3 % (0.0-12.0); Neutrophils # (auto) 6.2 10 ^3/uL (1.6-8.6); Neutrophils % (auto) 59.2 % (37.0-80.0); Nucleated Red Blood Cells % 0.1 %; Platelet Count (auto) 290 10^3/uL (140-450); Red Blood Cells 4.42 10^6/uL (4.0-5.20); White Blood Cell 10.4 10^3/uL (4.4-10.8)
[2024-02-16 06:57] LABS: Red Cell Distribution Width 24.4 % (11.8-14.3)
[2024-02-16 07:31] LABS: Chloride 103 mmol/L (98-107); Sodium 139 mmol/L (136-145)
[2024-02-16 07:32] LABS: Anion Gap 11 (5-15); Calcium 9.7 mg/dL (8.7-10.4); Carbon Dioxide 25 mmol/L (20-31)
[2024-02-16 07:37] LABS: BUN/Creatinine Ratio 14.4 (10.0-20.0)
[2024-02-16 07:39] LABS: Blood Urea Nitrogen 25 mg/dL (9-23); Glucose 126 mg/dL (74-106); Potassium 3.4 mmol/L (3.5-5.1)
[2024-02-16 08:00] VITALS: PULSE 72; PULSE 89
[2024-02-16 08:35] VITALS: BP 125/75; PULSE 83; RESP 17; TEMP 97.8; O2SAT 99
[2024-02-16 08:40] LABS: Platelet Estimate Adequate
[2024-02-16 08:41] LABS: Anisocytosis Slight; Hypochromia Marked
[2024-02-16] MEDS: POTASSIUM EFFERVESENT TAB 25 MEQ PO ONE (09:24)
[2024-02-16 11:46] LABS: Base Excess 1.4 mmol/L (-2.0-3.0)
[2024-02-16 12:50] VITALS: BP 105/64; PULSE 88; RESP 19; TEMP 99.1; O2SAT 94
--- NOTE | 2024-02-16 13:53 | DVHPN2 ---
Progress Note Date Seen: Feb 16, 2024 Medical Necessity Reason Pt with a Central, PICC or Fol: No Subjective Patient reports: Feels better Review of Systems: GI:Abnormal Objective vital signs Vital Sign Date Time Temp Pulse Resp B/P (MAP) Pulse Ox O2 Delivery O2 Flow Rate FiO2 02/16/24 12:50 99.1 88 19 105/64 (78) 94 99.1 02/15/24 19:42 Nasal Cannula* 2 28 Total Intake and Output 02/15/24 02/15/24 02/16/24 15:00 23:00 07:00 Intake Total 110 ml 1680 ml 600 ml Balance 110 ml 1680 ml 600 ml medications Current Medications Medications Dose Ordered Sig/Elvin Route Start Time Stop Time Status Last Admin Dose Admin Sodium Chloride 10 ml Q8HR IV 02/11/24 14:00 02/16/24 05:52 10 ML Acetaminophen/ Hydrocodone Bitart 1 tab Q4HP PRN PO 02/11/24 09:45 Ondansetron HCl 4 mg Q4HP PRN IV 02/11/24 09:45 Docusate Sodium 100 mg BIDPRN PRN PO 02/11/24 09:45 02/14/24 09:21 100 MG Acetaminophen 650 mg Q6HP PRN PO 02/11/24 09:45 Allopurinol 100 mg DAILY PO 02/11/24 10:00 02/16/24 09:25 100 MG Cholecalciferol 5,000 unit DAILY PO 02/11/24 10:00 02/16/24 09:25 5,000 UNIT Furosemide 40 mg DAILY IV 02/13/24 10:00 02/16/24 09:27 40 MG Metoprolol Succinate 100 mg DAILY PO 02/14/24 10:00 02/16/24 09:26 100 MG Amiodarone HCl 400 mg Q12HR PO 02/14/24 22:00 02/16/24 09:26 400 MG Sucralfate 1 gm QIDACHS PO 02/14/24 17:00 02/16/24 12:03 1 GM Pantoprazole Sodium 40 mg BID@0600,1700 PO 02/14/24 17:00 02/16/24 05:52 40 MG Iron Sucrose 110 ml @ 110 mls/hr DAILY@1200 IV 02/15/24 12:00 02/19/24 12:59 02/16/24 12:05 110 MLS/HR Examination: GENERAL:Normal, LUNGS:Normal, LUNGS:Abnormal, CVS:Abnormal, ABDOMEN:Abnormal laboratory and microbiology Laboratory Tests 02/16/24 05:00 Test 02/16/24 05:00 Range/Units Serum Glucose 126 H 74-106 mg/dL Problem List/Assessment/Plan Problem List/Assessment/Plan Acute kidney injury superimposed Chronic Kidney Disease secondary hemodynamic mediated Chronic diastolic heart failure pulm htn AFib with RVR Gouty arthritis Significant microcytic anemia status post packed red blood cell transfusion Hypokalemia Severe iron deficiency esophagitis and hiatal hernia Increased urine output, convert lasix to po tomorrow avoid hypotension Strict I&Os Kidney ultrasound reported earlier bilateral echogenic kidney Cardiology consult GI consult We will continue to follow Plan discussed with: Patient CC Plasma Assessment Blood Product Administration S: 12:40 SHANNA HOGAN MD Feb 16, 2024 13:53
[2024-02-16] MEDS ORDERED: AMIO200T33 PO (14:19)
[2024-02-16] MEDS ORDERED: SUCR1TAB PO (14:19)
[2024-02-16] MEDS ORDERED: PANT40T PO (14:19)
[2024-02-16] MEDS ORDERED: METO-6 PO (14:19)
--- NOTE | 2024-02-16 15:17 | DVHPN2 ---
Progress Note - Dictate Date Seen: Feb 16, 2024 Medical Necessity Reason Pt with a Central, PICC or Fol: No Subjective No new complaints Patient is feeling better She received 1 unit PRBC yesterday and hemoglobin came up to 9.3 Heart rate is stable at about 88 vital signs Vital Sign Date Time Temp Pulse Resp B/P (MAP) Pulse Ox O2 Delivery O2 Flow Rate FiO2 02/16/24 12:50 99.1 88 19 105/64 (78) 94 99.1 02/15/24 19:42 Nasal Cannula* 2 28 Total Intake and Output 02/15/24 02/15/24 02/16/24 15:00 23:00 07:00 Intake Total 110 ml 1680 ml 600 ml Balance 110 ml 1680 ml 600 ml medications Current Medications Medications Dose Ordered Sig/Elvin Route Start Time Stop Time Status Last Admin Dose Admin Sodium Chloride 10 ml Q8HR IV 02/11/24 14:00 02/16/24 14:06 10 ML Acetaminophen/ Hydrocodone Bitart 1 tab Q4HP PRN PO 02/11/24 09:45 Ondansetron HCl 4 mg Q4HP PRN IV 02/11/24 09:45 Docusate Sodium 100 mg BIDPRN PRN PO 02/11/24 09:45 02/14/24 09:21 100 MG Acetaminophen 650 mg Q6HP PRN PO 02/11/24 09:45 Allopurinol 100 mg DAILY PO 02/11/24 10:00 02/16/24 09:25 100 MG Cholecalciferol 5,000 unit DAILY PO 02/11/24 10:00 02/16/24 09:25 5,000 UNIT Metoprolol Succinate 100 mg DAILY PO 02/14/24 10:00 02/16/24 09:26 100 MG Amiodarone HCl 400 mg Q12HR PO 02/14/24 22:00 02/16/24 09:26 400 MG Sucralfate 1 gm QIDACHS PO 02/14/24 17:00 02/16/24 12:03 1 GM Pantoprazole Sodium 40 mg BID@0600,1700 PO 02/14/24 17:00 02/16/24 05:52 40 MG Iron Sucrose 110 ml @ 110 mls/hr DAILY@1200 IV 02/15/24 12:00 02/19/24 12:59 02/16/24 12:05 110 MLS/HR Furosemide 40 mg DAILY PO 02/17/24 10:00 objective General: NAD, AAOX3 Chest: lung [place] clear to auscultation Heart: RRR, no murmur Abdomen: non-distended, no tenderness to palpation, +BS laboratory and microbiology Laboratory Tests 02/16/24 05:00 Test 02/16/24 05:00 Range/Units Serum Glucose 126 H 74-106 mg/dL Problems(with codes): (1) Hiatal hernia with GERD without esophagitis (2) CHF exacerbation (3) Coffee ground emesis (4) Leukocytosis (5) Anemia (6) Atrial fibrillation and flutter Prognosis Plan Oral amiodarone Oral Lasix Protonix 40 mg p.o. daily Outpatient follow up with GI Patient is scheduled for an outpatient colonoscopy next month and has requested a panendoscopy We will await cardiac clearance for the same Once again thank you for allowing me to participate in the care of this patient Discharge planning as per hospitalist Plan discussed with: Patient CC Plasma Assessment Blood Product Administration S: 12:40 SONYA BARBOSA MD Feb 16, 2024 15:17
--- NOTE | 2024-02-16 21:16 | DVHDSRES ---
Discharge Summary Date of Admission Resident Creating Document: TOM COTTO RESIDENT Feb 11, 2024 at 09:39 Date of Discharge: Feb 16, 2024 Admitting Diagnosis acute hypoxic respiratoy faillure due to CHF exacerbation atrial fibrillation Labs/Diagnostic Data: Laboratory Results Test 02/16/24 11:38 02/16/24 05:00 02/14/24 08:31 02/13/24 04:38 Blood Gas Specimen Type Arterial Blood Gas Sample Site Right radial Blood Gas Patient Temperature 37.0 Arterial Blood Date Drawn [id number] Arterial Blood pH 7.482 (7.350-7.450) Arterial Blood Partial Pressure CO2 33.7 mmHg (32.0-45.0) Arterial Blood Partial Pressure O2 67.9 mmHg (83.0-108.0) Arterial Blood HCO3 24.6 mmol/L (21.0-28.0) Arterial Blood Oxygen Saturation 92.3 % (94.0-98.0) Arterial Blood Base Excess 1.4 mmol/L (-2.0-3.0) Arterial Blood Oxyhemoglobin 90.7 % (94.0-98.0) Arterial Blood Carboxyhemoglobin 1.3 % (0.5-1.5) Arterial Blood Methemoglobin 0.4 % (0.0-1.5) Jimmy Test Yes Blood Gas Total Hemoglobin 10.30 g/dL (12.0-16.0) Blood Gas Modality Room air FiO2 % 21.0 White Blood Count 10.4 10^3/uL (4.4-10.8) Red Blood Count 4.42 10^6/uL (4.0-5.20) Hemoglobin 9.1 g/dL (12.2-16.2) Hematocrit 29.5 % (36.0-46.0) Mean Corpuscular Volume 66.8 fL (80.0-100.0) Mean Corpuscular Hemoglobin 20.5 pg (28.0-32.0) Mean Corpuscular Hemoglobin Concent 30.7 g/dL (32.0-36.0) Red Cell Distribution Width 24.4 % (11.8-14.3) Platelet Count 290 10^3/uL (140-450) Mean Platelet Volume 7.6 fL (6.9-10.8) Neutrophils (%) (Auto) 59.2 % (37.0-80.0) Lymphocytes (%) (Auto) 20.5 % (10.0-50.0) Monocytes (%) (Auto) 17.3 % (0.0-12.0) Eosinophils (%) (Auto) 1.9 % (0.0-7.0) Basophils (%) (Auto) 1.1 % (0.0-2.0) Neutrophils # (Auto) 6.2 10 ^3/uL (1.6-8.6) Lymphocytes # (Auto) 2.1 10 ^3/uL (0.4-5.4) Monocytes # (Auto) 1.8 10 ^3/uL (0-1.3) Eosinophils # (Auto) 0.2 10 ^3/uL (0-0.8) Basophils # (Auto) 0.1 10 ^3/uL (0-0.2) Nucleated Red Blood Cells 0.1 % Platelet Estimate Adequate Hypochromasia (manual) Marked Anisocytosis (manual) Slight Microcytosis Marked Sodium Level 139 mmol/L (136-145) Potassium Level 3.4 mmol/L (3.5-5.1) Chloride Level 103 mmol/L (98-107) Carbon Dioxide Level 25 mmol/L (20-31) Anion Gap 11 (5-15) Blood Urea Nitrogen 25 mg/dL (9-23) Creatinine 1.74 mg/dL (0.550-1.02) Glomerular Filtration Rate Calc 30 mL/min (>90) BUN/Creatinine Ratio 14.4 (10.0-20.0) Serum Glucose 126 mg/dL (74-106) Calcium Level 9.7 mg/dL (8.7-10.4) Differential Total Cells Counted 100.0 (100) Neutrophils % (Manual) 73 (37.0-80.0) Band Neutrophils % (Manual) 0 Lymphocytes % (Manual) 13 (10.0-50.0) Monocytes % (Manual) 13 (0-12) Eosinophils % (Manual) 1 (0-7) Basophils % (Manual) 0 (0.0-2.0) Metamyelocytes % (manual) 0 Myelocytes % (Manual) 0 Promyelocytes % (Manual) 0 Blast Cells % (Manual) 0 Reactive Lymphocytes 0 Large Platelets Few Stomatocytes Moderate Test 02/12/24 14:00 02/12/24 10:57 02/12/24 05:48 02/12/24 05:45 Uric Acid 8.5 mg/dL (3.1-7.8) Phosphorus Level 2.4 mg/dL (2.4-5.1) Magnesium Level 2.3 mg/dL (1.6-2.6) Parathyroid Hormone (Intact) 206.0 pg/mL (18.4-80.1) Prothrombin Time 11.8 sec (9.3-11.8) Prothrombin Time INR 1.12 (0.9-1.15) Total Bilirubin 1.0 mg/dL (0.2-1.0) Aspartate Amino Transferase (AST) 19 U/L (13-40) Alanine Aminotransferase (ALT) 13 U/L (7-40) Alkaline Phosphatase 158 U/L (46-116) Total Protein 6.1 g/dL (5.7-8.2) Albumin 3.9 g/dL (3.2-4.8) Vitamin B12 Level 624 pg/mL (211-911) Vitamin D 25-Hydroxy 84.0 ng/mL (30.0-100) Test 02/11/24 07:30 02/11/24 06:31 Urine Color Colorless (Yellow) Urine Clarity Clear (Clear) Urine pH 7.0 (5.0-9.0) Urine Specific [place] 1.002 (1.001-1.035) Urine Protein Negative (Negative) Urine Ketones Negative (Negative) Urine Blood Negative /uL (Negative) Urine Nitrite Negative (Negative) Urine Bilirubin Negative (Negative) Urine Urobilinogen Normal mg/dL (Negative) Urine Leukocyte Esterase Negative /uL (Negative) Urine RBC None seen /hpf (0 - 4) Urine WBC <1 /hpf (0 - 5) Urine Squamous Epithelial Cells Few /hpf (<5) Urine Bacteria None seen /hpf (None Seen) Urine Glucose Normal mg/dL (Normal) Urine Opiates Screen Pos (NEGATIVE) Urine Fentanyl Screen Pos (NEGATIVE) Urine Barbiturates Screen Neg (NEGATIVE) Urine Phencyclidine Screen Neg (NEGATIVE) Urine Amphetamines Screen Neg (NEGATIVE) Urine Benzodiazepines Screen Neg (NEGATIVE) Urine Cocaine Screen Neg (NEGATIVE) Urine Cannabinoids Screen Pos (NEGATIVE) Reticulocyte Count (auto) 2.00 % (0.5-1.5) Iron Level 19 ug/dL (50-170) Total Iron Binding Capacity 418 ug/dL (250-425) Percent Iron Saturation 4.5 % (15-50) Ferritin 8.5 ng/mL (10-291) Lactate Dehydrogenase 271 U/L (120-246) Troponin I High Sensitivity 12 ng/L (</=34) B-Type Natriuretic Peptide 839.69 pg/mL (0-100) Folic Acid 9.63 ng/mL (>5.38) Other Laboratory Tests 02/16/24 05:00 Brief Hx & Hospital Course: HPI: The patient, a 78-year-old female with a complex medical history including pulmonary hypertension, paroxysmal atrial fibrillation managed with amiodarone, heart failure, hypertension, bilateral total hip replacements, osteoarthritis, and chronic kidney disease, was admitted due to progressive shortness of breath, worsening bilateral lower extremity edema, and severe fatigue. 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 Hospital course: On arrival, she was noted to have atrial fibrillation with a rapid ventricular response, with a heart rate peaking at 120 beats per minute. Additionally, her hemoglobin was critically low at 7.8, indicative of severe anemia, likely multifactorial in nature, due to chronic kidney disease and potential blood loss. To address her anemia, the patient received one unit of packed red blood cells during her hospitalization, which resulted in an improvement in her hemoglobin levels and resolution of fatigue. A GI consultation was obtained to evaluate potential sources of blood loss. Prophylactic therapy with pantoprazole and sucralfate was initiated to protect against upper gastrointestinal complications, such as ulcers or bleeding. Regarding her heart rate, her atrial fibrillation was managed with continued amiodarone therapy, and her heart rate stabilized during her stay. During her hospitalization, the patient responded well to the interventions and reported a gradual resolution of her shortness of breath and improvement in her functional status. She tolerated her medication adjustments without adverse effects and maintained stable vitals at the time of discharge. No additional complaints were noted, and the patient was deemed ready for discharge with plans for close outpatient follow-up. Disposition: patient stable for discharge to home , with recommendation to follow up with cardiology and pcp within 2 weeks. Case discussed with Goals of care discussed with the patient for 34 minutes. Condition at Discharge: Fair Final Diagnosis/Problems List atrial fibrillation with RVR Severe anemia s/p 2 RBC transfusions #Acute hypoxemic respiratory failure likely due to due to severe anemia, HFpEF mild exacerbation #Severe pulmonary hypertension #Genaralized weakness #Paroxysmal atrial fibrillation exacerbated likely due to severe anemia , chads Vasc 4 points , has bled 2 point #History of gastritis/duodenitis with healing ulcers #Acute kidney injury on superimposed chronic kidney disease secondary to hemodynamic mediated #Gout #Hypokalemia, replenished Discharge Disposition: Home SNF Discharge Will this Physician continue t: No Discharge Instruct/Medications Diet: Cardiac 2g Na,low cholest Activity: No Restrictions, As Tolerated Follow Up/Referral: follow up with pcp within 1 to 2 weeks follow up with cardiology within 1 to 2 weeks Medications: script to the pharmacy Discharge Statement: "Patient was advised to return to the ER or call 911 if any headaches, dizziness, shortness of breath, chest pain, abdominal pain, bleeding, fevers, or worsening of medical condition. Patient was counseled about treatment plan, medications, possible side effects, patientverbalized understanding. All questions were answered to the best of my ability. This discharge took greater then 30 minutes in planning, reviewing documentation, counseling the patient, and discussing with other team members." ASSESSMENT ASSESSMENT Assessment atrial fibrillation with RVR Severe anemia s/p 2 RBC transfusions severe pulmonary hypertension Date of Service: Feb 16, 2024 Billing Provider: JORGE BARRIOS MD Common Visit Codes: [id number] DISCH DAY >30min TOM COTTO RESIDENT Feb 16, 2024 21:16 JORGE BARRIOS MD Feb 17, 2024 10:46
--- NOTE | 2024-02-16 23:58 | DVHPN2 ---
Progress Note - Dictate Date Seen: Feb 16, 2024 Medical Necessity Reason Pt with a Central, PICC or Fol: No Subjective Patient was seen and evaluated in follow up. Patient has no new complaints at this time. Patient denies any cardiac symptoms. Patient is cardiac stable for discharge. vital signs Vital Sign Date Time Temp Pulse Resp B/P (MAP) Pulse Ox O2 Delivery O2 Flow Rate FiO2 02/16/24 12:50 99.1 88 19 105/64 (78) 94 99.1 02/16/24 07:30 Nasal Cannula* 2 28 Total Intake and Output 02/15/24 02/15/24 02/16/24 15:00 23:00 07:00 Intake Total 110 ml 1680 ml 600 ml Balance 110 ml 1680 ml 600 ml objective GENERAL: Awake, alert, oriented. LUNGS: Clear. CARDIOVASCULAR: A-fib. ABDOMEN: Soft. EXT: 3+ BLE edema. laboratory and microbiology Laboratory Tests 02/16/24 05:00 Test 02/16/24 05:00 Range/Units Serum Glucose 126 H 74-106 mg/dL Problem List CHF exacerbation. Atrial fibrillation and flutter. Anemia. Acute Kidney injury. Gout. Pulmonary hypertension. Assessment/Plan Continued all current supportive medical care. [place] for pain management. IV Amiodarone. Aspirin, Metoprolol. Diuretics with Lasix. GI prophylactics. Additional plan as per the hospital course. Plan discussed with: Spouse CC Plasma Assessment Blood Product Administration S: 12:40 AMANDA DE LEON MD Feb 16, 2024 23:58
[2024-02-17] MEDS ORDERED: FUROSEMIDE 40 MG TAB PO SCH (10:00)
== END 2024-02-16 15:42 | disposition home or self-care (01) | DRG 291 ==
LOC: ER 06:07 → TELE 09:39 → TELE-WESTW 22:20
PROVIDERS: ADMIT Internal Medicine Geriatric Medicine; ATTEND Internal Medicine Geriatric Medicine
PROC: 30233N1 Transfusion of Nonautologous Red Blood Cells into Peripheral Vein, Percutaneous Approach (ICD-10-PCS; principal; 2024-02-11)
PROC: 05HF33Z Insertion of Infusion Device into Left Cephalic Vein, Percutaneous Approach (ICD-10-PCS; 2024-02-13)
PROC: B54NZZA Ultrasonography of Left Upper Extremity Veins, Guidance (ICD-10-PCS; 2024-02-13)
DX: I13.0 Hypertensive heart and chronic kidney disease with heart failure and stage 1 through stage 4 chronic kidney disease, or unspecified chronic kidney disease (principal); I50.33 Acute on chronic diastolic (congestive) heart failure; J96.01 Acute respiratory failure with hypoxia; I48.92 Unspecified atrial flutter; N17.9 Acute kidney failure, unspecified; D50.9 Iron deficiency anemia, unspecified; M10.9 Gout, unspecified; I27.20 Pulmonary hypertension, unspecified; Z96.643 Presence of artificial hip joint, bilateral; N18.30 Chronic kidney disease, stage 3 unspecified; E87.6 Hypokalemia; I48.0 Paroxysmal atrial fibrillation; K20.90 Esophagitis, unspecified without bleeding; K44.9 Diaphragmatic hernia without obstruction or gangrene; Z82.49 Family history of ischemic heart disease and other diseases of the circulatory system
CPT/HCPCS: 36415; 36600; 71045; 80048; 80053; 80307; 81001; 82306; 82607; 82728; 82746; 82805; 83540; 83550; 83615; 83735; 83880; 83970; 84100; 84132; 84484; 84550; 85007; 85014; 85018; 85025; 85027; 85045; 85610; 86850; 86900; 86901; 86920; 93005; 93306; 96374; 96375; 97116; 97163; 97530; 99291; G0378; J0153; J1756; J2470

== ENCOUNTER 2024-05-11 06:29 | Emergency (ER) | payer MEDICARE, OTHER ==
[~2024-05-11] VITALS: Ht 170.2 cm; Wt 93.7 kg
[~2024-05-11 06:29] MED LIST changes: +AMIO200T33 PO; +ASPI-325 PO; -CEPH500C PO; -FURO20TA3 PO; -METO-289 PO; +METO-6 PO; +METO25TA93 PO; -SUCR1SUS26 PO; +SUCR1TAB PO
[2024-05-11 07:17] VITALS: BP 125/86; PULSE 109; RESP 14; TEMP 97.7; O2SAT 94
[2024-05-11] MEDS: LIDOCAINE W/ EPINEPHRINE 1% 20ML VIAL SC ONE (08:54)
[2024-05-11] MEDS: ACETAMINOPHEN/CODEINE#3 (300/30mg) TAB PO ONE (09:17)
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
[2024-05-11] MEDS: NEOMYCIN-BACITRACIN-POLYM UNITDOSE PKG TOP OINT TOP ONE (10:09)
[2024-05-13] MEDS ORDERED: GASTROGRAFIN 120 ML SOL ONE (09:13)
== END 2024-05-11 10:33 | disposition home or self-care (01) ==
LOC: ER 06:29
DX: R07.81 Pleurodynia (principal); I11.0 Hypertensive heart disease with heart failure; I50.9 Heart failure, unspecified; I48.91 Unspecified atrial fibrillation; M10.9 Gout, unspecified; M19.90 Unspecified osteoarthritis, unspecified site; Z79.899 Other long term (current) drug therapy; Z79.1 Long term (current) use of non-steroidal anti-inflammatories (NSAID); Z79.82 Long term (current) use of aspirin; V89.2XXA Person injured in unspecified motor-vehicle accident, traffic, initial encounter; Y93.89 Activity, other specified; Y92.410 Unspecified street and highway as the place of occurrence of the external cause; Y99.8 Other external cause status
CPT/HCPCS: 71101; 99283; J7030

== ENCOUNTER 2024-12-28 20:55 | Inpatient (IN) | payer OTHER ==
[~2024-12-28] VITALS: Ht 167.6 cm; Wt 81.4 kg
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
--- NOTE | 2024-12-28 21:39 | ECG ---
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
[2024-12-28 22:02] LABS: Hemoglobin 12.2 g/dL (12.2-16.2); Nucleated Red Blood Cells % 0.0 %
[2024-12-28 22:03] LABS: Hematocrit 36.9 % (36.0-46.0); Mean Corpuscular Hemoglobin 27.3 pg (28.0-32.0); Mean Corpuscular Volume 82.2 fL (80.0-100.0)
[2024-12-28 22:10] VITALS: O2SAT 97
[2024-12-28 22:16] LABS: Albumin 4.0 g/dL (3.2-4.8); BUN/Creatinine Ratio 23.9 (10.0-20.0); Bilirubin, Total 0.8 mg/dL (0.2-1.0); Magnesium 2.0 mg/dL (1.6-2.6); Total Protein 6.9 g/dL (5.7-8.2)
[2024-12-28 22:19] LABS: INR 1.08 (0.9-1.15); Partial Thromboplastin Time 26.7 SEC (24.5-34.5); Prothrombin Time 11.4 sec (9.3-11.8); Sodium 139 mmol/L (136-145)
[2024-12-28 22:22] LABS: Anion Gap 13 (5-15)
[2024-12-28 22:24] LABS: Alanine Aminotransferase 9 U/L (7-40); Alkaline Phosphatase 143 U/L (46-116); Blood Urea Nitrogen 27 mg/dL (9-23); Calcium 9.5 mg/dL (8.7-10.4); Carbon Dioxide 29 mmol/L (20-31); Chloride 97 mmol/L (98-107); Glucose 116 mg/dL (74-106); Potassium 3.1 mmol/L (3.5-5.1)
[2024-12-28] MEDS: SODIUM CHLORIDE 0.9% 1,800 ML IV ONE (22:25)
[2024-12-28] MEDS: PIPERACILLIN-TAZOB 3.375GM 100 ML IV ONE (22:30)
--- NOTE | 2024-12-28 22:35 | DVH ---
CHEST RADIOGRAPH Indication: SOB Technique: Single frontal view of the chest was obtained COMPARISON: XY CHEST PORTABLE on DOS: 02/12/24, ECHO 2D MODE CARDIAC DOP on DOS: 02/11/24, XY CHEST PORTABLE on DOS: 02/11/24, XY CHEST PORTABLE on DOS: 08/28/23, US ECHO 2D MODE CARDIAC DOP on DOS: 08/27/23 FINDINGS: Lungs and pleural spaces are clear. Cardiac silhouette and jed are within normal limits. Bones and soft tissues demonstrate no significant abnormality. IMPRESSION: No acute disease.
--- NOTE | 2024-12-28 22:40 | DVH ---
CLINICAL HISTORY: ALOC TECHNIQUE: Helical imaging carried out from skull base to vertex without intravenous contrast. This exam was performed according to our departmental dose optimization program. Up-to-date CT equipment and radiation dose reduction techniques are utilized as appropriate. CTDIVol: 53.61 mGy DLP: 1075.56 mGy-cm WID: COMPARISON: None FINDINGS: Generalized cerebral volume loss with concordant prominence of the subarachnoid spaces and ventricles. Mild patchy low attenuation in the cerebral white matter consistent with nonspecific white matter disease. There are chronic lacunar infarcts in the bilateral basal ganglia. There is no midline shift or mass effect. Small partially calcified lesion along the posterior falx likely a meningioma ( series 2, image 49). The goldman white matter interfaces are maintained. The basal cisterns are patent. There is no evidence of acute intracranial hemorrhage or extra-axial fluid collection. The mastoid air cells and visualized paranasal sinuses are well-aerated aside from a left mastoid air cell effusion.. Moderate bilateral TMJ arthrosis. IMPRESSION: 1. No acute intracranial abnormality. 2. Generalized cerebral volume loss and mild chronic microvascular ischemic change. 3. Moderate bilateral TMJ arthrosis. 4. Left mastoid air cell effusion.
[2024-12-28 22:54] LABS: Urine Protein, UAD Negative (Negative); Urine WBC Clumps PRESENT /hpf (None Seen)
[2024-12-28] MEDS: VANCOMYCIN 1GM/250ML KIT 250 ML IV ONE (23:35)
[2024-12-29] VITALS (9 sets, daily range): BP systolic 80–117; BP diastolic 46–72; PULSE 61–89; RESP 16–19; TEMP 97.9–101.2; O2SAT 97–100
[2024-12-29] MEDS ORDERED: ONDANSETRON HCL 4 MG/2 ML VIAL IV PRN (00:30)
--- NOTE | 2024-12-29 00:39 | DVHHP2 ---
History of Present Illness Reason for Visit: Altered mental status History of Present Illness 79-year-old male presents for evaluation of altered mental status. Patient with a history of quadriplegia/bed ridden presents with a one day history of altered mental status. Per daughters at the bedside her mother's normally alert and oriented x4. She noted her becoming progressively more altered starting today in the morning. She reports recently finishing a course of antibiotics for a recurrent UTI. Past Medical History Hypertension, CHF, AFib, quadriplegic Past Surgical History Spinal surgery Family History Noncontributory Smoke: No ALCOHOL: none Drugs: None Lives: with Family Review of Systems Review of Systems Review of systems are currently negative otherwise addressed in HPI. Allergies: Coded Allergies: NO KNOWN ALLERGIES (Unverified , 08/26/23) Exam Vital Signs Vital Signs Date Time Temp Pulse Resp B/P (MAP) Pulse Ox O2 Delivery O2 Flow Rate FiO2 12/28/24 22:29 99 12/28/24 22:10 98.1 18 116/80 (92) 96 98.1 12/28/24 22:10 Nasal Cannula* 2 28 Exam Gen: 79-year-old female in mild distress. Skin: Warm, dry, normal color and texture, multiple wounds to sacrum and bilateral heels HEENT: Normocephalic atraumatic, mucous membranes moist and pink. Neck: Cervical and supraclavicular nodes normal without enlargement, trachea is midline, thyroid gland is normal without masses. Pulmonary: Clear to auscultation and percussion bilaterally. Cardiac: Regular rate and rhythm. No murmur Abdomen: Soft, nontender, nondistended, bowel sounds present all 4 quadrants, no guarding, no rigidity, no organomegaly. Extremities: No cyanosis, clubbing, no edema Neuro: Lethargic, quadriplegic Labs/Xrays ORDERING PHYSICIAN: KENJI ARAUJO MD PROCEDURE(s): CXRP - CHEST PORTABLE REASON: SOB ORDER NUMBER(s): [id number], ACCESSION NUMBER(s): [id number] CHEST RADIOGRAPH Indication: SOB Technique: Single frontal view of the chest was obtained COMPARISON: XY CHEST PORTABLE on DOS: 02/12/24, ECHO 2D MODE CARDIAC DOP on DOS: 02/11/24, XY CHEST PORTABLE on DOS: 12/19/24, XY CHEST PORTABLE on DOS: 08/28/23, US ECHO 2D MODE CARDIAC DOP on DOS: 08/27/23 FINDINGS: Lungs and pleural spaces are clear. Cardiac silhouette and jed are within normal limits. Bones and soft tissues demonstrate no significant abnormality. IMPRESSION: No acute disease. RING PHYSICIAN: KENJI ARAUJO MD PROCEDURE(s): HWOCT - HEAD WITHOUT CONTRAST REASON: ALOC ORDER NUMBER(s): [id number], ACCESSION NUMBER(s): [id number] CLINICAL HISTORY: ALOC TECHNIQUE: Helical imaging carried out from skull base to vertex without intrav enous contrast. This exam was performed according to our departmental dose optimization program. Up-to-date CT equipment and radiation dose reduction techniques are utilized as appropriate. CTDIVol: 53.61 mGy DLP: 1075.56 mGy-cm WID: COMPARISON: None FINDINGS: Generalized cerebral volume loss with concordant prominence of the subarachnoid spaces and ventricles. Mild patchy low attenuation in the cerebral white matter consistent with nonspecific white matter disease. There are chronic lacunar infarcts in the bilateral basal ganglia. There is no midline shift or mass effect. Small partially calcified lesion along the posterior falx likely a meningioma ( series 2, image 49). The goldman white matter interfaces are maintained. The basal cisterns are patent. There is no evidence of acute intracranial hemorrhage or extra-axial fluid collection. The mastoid air cells and visualized paranasal sinuses are well-aerated aside from a left mastoid air cell effusion.. Moderate bilateral TMJ arthrosis. IMPRESSION: 1. No acute intracranial abnormality. 2. Generalized cerebral volume loss and mild chronic microvascular ischemic change. 3. Moderate bilateral TMJ arthrosis. 4. Left mastoid air cell effusion. Labs Test 12/29/24 00:24 12/28/24 22:20 12/28/24 21:45 Range/Units Urine Color Colorless Yellow Urine Clarity Ex.turbid Clear Urine pH 6.0 5.0-9.0 Urine Specific [place] 1.008 1.001-1.035 Urine Protein Negative Negative Urine Ketones Negative Negative Urine Blood 1+ H Negative /uL Urine Nitrite Negative Negative Urine Bilirubin Negative Negative Urine Urobilinogen Normal Negative mg/dL Urine Leukocyte Esterase 2+ Negative /uL Urine RBC 21 0 - 4 /hpf Urine WBC Clumps Present None Seen /hpf Urine Microscopic WBC 1421 H 0-5 /HPF Urine Squamous Epithelial Cells None seen <5 /hpf Urine Bacteria None seen None Seen /hpf Urine Glucose Normal Normal mg/dL White Blood Count 16.1 H 4.4-10.8 10^3/uL Red Blood Count 4.49 4.0-5.20 10^6/uL Hemoglobin 12.2 12.2-16.2 g/dL Hematocrit 36.9 36.0-46.0 % Mean Corpuscular Volume 82.2 80.0-100.0 fL Mean Corpuscular Hemoglobin 27.3 L 28.0-32.0 pg Mean Corpuscular Hemoglobin Concent 33.2 32.0-36.0 g/dL Red Cell Distribution Width 15.3 H 11.8-14.3 % Platelet Count 492 H 140-450 10^3/uL Mean Platelet Volume 7.2 6.9-10.8 fL Neutrophils (%) (Auto) 90.8 H 37.0-80.0 % Lymphocytes (%) (Auto) 3.5 L 10.0-50.0 % Monocytes (%) (Auto) 4.7 0.0-12.0 % Eosinophils (%) (Auto) 0.5 0.0-7.0 % Basophils (%) (Auto) 0.5 0.0-2.0 % Neutrophils # (Auto) 14.6 H 1.6-8.6 10 ^3/uL Lymphocytes # (Auto) 0.6 0.4-5.4 10 ^3/uL Monocytes # (Auto) 0.8 0-1.3 10 ^3/uL Eosinophils # (Auto) 0.1 0-0.8 10 ^3/uL Basophils # (Auto) 0.1 0-0.2 10 ^3/uL Nucleated Red Blood Cells 0.0 % Prothrombin Time 11.4 9.3-11.8 sec Prothrombin Time INR 1.08 0.9-1.15 Activated Partial Thromboplast Time 26.7 24.5-34.5 SEC Sodium Level 139 136-145 mmol/L Potassium Level 3.1 L 3.5-5.1 mmol/L Chloride Level 97 L 98-107 mmol/L Carbon Dioxide Level 29 20-31 mmol/L Anion Gap 13 5-15 Blood Urea Nitrogen 27 H 9-23 mg/dL Creatinine 1.13 H 0.550-1.02 mg/dL Glomerular Filtration Rate Calc 50 >90 mL/min BUN/Creatinine Ratio 23.9 H 10.0-20.0 Serum Glucose 116 H 74-106 mg/dL Lactic Acid Level 1.6 0.4-2.0 mmol/L Calcium Level 9.5 8.7-10.4 mg/dL Magnesium Level 2.0 1.6-2.6 mg/dL Total Bilirubin 0.8 0.2-1.0 mg/dL Aspartate Amino Transferase (AST) 17 13-40 U/L Alanine Aminotransferase (ALT) 9 7-40 U/L Alkaline Phosphatase 143 H 46-116 U/L Total Protein 6.9 5.7-8.2 g/dL Albumin 4.0 3.2-4.8 g/dL SEPSIS Sepsis Screen Date sepsis recognized/suspect: Dec 28, 2024 Time Sepsis recognized/suspect: 2054 Recent Procedure: No On Antibiotic Therapy: No Respiratory Rate >20: Yes Heart Rate >90: Yes Temp<36 C (96.8 F) or >38.3 C: No SBP <90 or MAP <65 mmHG: No New Acute Mental Status Change: No Is the patient on CPAP, BIPAP,: No Physician Orders Troponin-I Hs (12/29/24 00:00) Troponin-I Hs (12/29/24 03:00) Blood Culture (12/28/24 21:15) Chest Portable (12/28/24 21:15) Urine Bacterial Culture (12/28/24 21:15) Head Without Contrast (12/28/24 21:15) * Wound Consult (12/29/24 ) (Nf) Ertepenem (12/29/24 10:00) Potassium Chl Gabriele Kcl (12/29/24 00:30) Basic Metabolic Panel (12/30/24 04:00) Amiodarone Tablet (Cordarone Tablet) (12/29/24 10:00) Aspirin Tablet (12/29/24 10:00) Furosemide Tablet (Lasix Tablet) (12/29/24 10:00) Pantoprazole Tablet (Protonix Tablet) (12/29/24 06:00) Atorvastatin (Lipitor) (12/29/24 22:00) Admit (12/29/24 00:30) Ondansetron Hcl (Zofran) (12/29/24 00:30) Vital Signs Date Time Temp Pulse Resp B/P (MAP) Pulse Ox O2 Delivery O2 Flow Rate FiO2 12/28/24 22:29 99 12/28/24 22:10 98.1 94 18 116/80 (92) 96 98.1 12/28/24 22:10 97 Nasal Cannula* 2 28 12/28/24 21:36 96 12/28/24 20:55 99.6 105 26 127/68 95 99.6 Laboratory Tests Test 12/28/24 21:45 Lactic Acid Level 1.6 mmol/L (0.4-2.0) White Blood Count 16.1 10^3/uL (4.4-10.8) H Medications Medications Dose Ordered Sig/Elvin Route Start Time Stop Time Status Last Admin Dose Admin Piperacillin Sod/ Tazobactam Sod 100 ml @ 100 mls/hr ONCE ONCE IV 12/28/24 21:15 12/28/24 22:14 DC 12/28/24 22:30 100 MLS/HR Sodium Chloride 1,800 ml @ 1,800 mls/hr ONCE ONCE IV 12/28/24 21:15 12/28/24 22:14 DC 12/28/24 22:25 1,800 MLS/HR Vancomycin HCl 250 ml @ 250 mls/hr ONCE ONCE IV 12/28/24 21:30 12/28/24 22:29 DC 12/28/24 23:35 250 MLS/HR Assessment/Plan Assessment/Plan Assessment Metabolic encephalopathy Recurrent UTI Quadriplegia Acute kidney injury Leukocytosis Plan Admit the patient to [facility] to the hospitalist Urine bacterial culture pending Blood culture pending Ertapenem IV Wound consult Resume home medications Continue treatment per orders. Plan discussed with: Patient My Orders Orders - PARISA MARTIN Procedure Category Date Status Time * Wound Consult CONS 12/29/24 Verified (Nf) Ertepenem PHA 12/29/24 Verified 10:00 Potassium Chl Gabriele PHA 12/29/24 Verified KCL 00:30 Basic Metabolic Panel LAB 12/30/24 Verified 04:00 Amiodarone Tablet PHA 12/29/24 Verified (Cordarone Tablet) 10:00 Aspirin Tablet PHA 12/29/24 Verified 10:00 Furosemide Tablet PHA 12/29/24 Verified (Lasix Tablet) 10:00 Pantoprazole Tablet PHA 12/29/24 Verified (Protonix Tablet) 06:00 Atorvastatin (Lipitor) PHA 12/29/24 Verified 22:00 Admit ADMIT 12/29/24 Verified 00:30 Ondansetron Hcl PHA 12/29/24 Verified (Zofran) 00:30 Date of Service: Dec 29, 2024 Billing Provider: PARISA MARTIN Common Visit Codes: [id number] INP/OBS CARE (HIGH) PARISA MARTIN Dec 29, 2024 00:39
[2024-12-29] MEDS: POTASSIUM CHL 20MEQ/100ML 100 ML IV ONE (03:13)
[2024-12-29] MEDS: ACETAMINOPHEN 325 MG TAB PO PRN (04:13)
[2024-12-29] MEDS: PANTOPRAZOLE 40 MG TAB PO SCH (05:53)
[2024-12-29] MEDS: SODIUM CHLORIDE 0.9% 1,000 ML IV ONE (07:07)
[2024-12-29] MEDS: SODIUM CHLORIDE 0.9% 500 ML IV ONE (07:10)
[2024-12-29] MEDS: NS IV SCH (11:02)
[2024-12-29] MEDS: ERTAPENEM IV SCH (11:02)
[2024-12-29] MEDS: ENOXAPARIN SOD 30 MG/0.3 ML SYRINGE SC SCH (11:03)
[2024-12-29] MEDS: FUROSEMIDE 40 MG TAB PO SCH (11:09)
[2024-12-29] MEDS: AMIODARONE HCL 200 MG TAB PO SCH (11:39)
--- NOTE | 2024-12-29 15:03 | DVHPN2 ---
Reviewed: H&P Changes from previous H/P or p: No Changes General: Per HPI Objective Vitals Vital Signs Date Time Temp Pulse Resp B/P (MAP) Pulse Ox O2 Delivery O2 Flow Rate FiO2 12/29/24 13:00 97.9 85 16 80/46 (57) 98 97.9 12/29/24 08:20 Nasal Cannula* 3 32 Intake/Output Intake and Output 12/29/24 06:59 Intake Total 0 ml Output Total 525 ml Balance -525 ml Intake Oral 0 ml Output Urine Total 525 ml # Bowel Movements 1 Exam Gen: 79-year-old female in mild distress. Skin: Warm, dry, normal color and texture, multiple wounds to sacrum and bilateral heels HEENT: Normocephalic atraumatic, mucous membranes moist and pink. Neck: Cervical and supraclavicular nodes normal without enlargement, trachea is midline, thyroid gland is normal without masses. Pulmonary: Clear to auscultation and percussion bilaterally. Cardiac: Regular rate and rhythm. No murmur Abdomen: Soft, nontender, nondistended, bowel sounds present all 4 quadrants, no guarding, no rigidity, no organomegaly. Extremities: No cyanosis, clubbing, no edema Neuro: Lethargic, quadriplegic Medications Current Medications Medications Dose Ordered Sig/Elvin Route Start Time Stop Time Status Last Admin Dose Admin Patient Own Medication 1 gm DAILY IV 12/29/24 10:00 UNV Amiodarone HCl 200 mg DAILY PO 12/29/24 10:00 Aspirin 81 mg DAILY PO 12/29/24 10:00 12/29/24 11:03 81 MG Furosemide 40 mg DAILY PO 12/29/24 10:00 Pantoprazole Sodium 40 mg DAILY@0600 PO 12/29/24 06:00 12/29/24 05:53 40 MG Atorvastatin Calcium 20 mg HS PO 12/29/24 22:00 Ondansetron HCl 4 mg Q4HP PRN IV 12/29/24 00:30 Enoxaparin Sodium 30 mg DAILY SC 12/29/24 10:00 12/29/24 11:03 30 MG Acetaminophen 650 mg Q6HP PRN PO 12/29/24 00:30 12/29/24 11:49 650 MG Ertapenem 50 ml @ 100 mls/hr DAILY IV 12/29/24 10:00 12/29/24 11:02 100 MLS/HR Acetaminophen/ Hydrocodone Bitart 1 tab Q4HPRN PRN PO 12/29/24 13:45 Laboratory Results Laboratory Tests 12/28/24 21:45 Chemistry Test 12/28/24 21:45 Albumin 4.0 g/dL (3.2-4.8) Calcium Level 9.5 mg/dL (8.7-10.4) Magnesium Level 2.0 mg/dL (1.6-2.6) Total Protein 6.9 g/dL (5.7-8.2) Coagulation Test 12/28/24 21:45 Prothrombin Time 11.4 sec (9.3-11.8) Prothrombin Time INR 1.08 (0.9-1.15) Activated Partial Thromboplast Time 26.7 SEC (24.5-34.5) LFT Test 12/28/24 21:45 Alanine Aminotransferase (ALT) 9 U/L (7-40) Alkaline Phosphatase 143 U/L (46-116) H Aspartate Amino Transferase (AST) 17 U/L (13-40) Total Bilirubin 0.8 mg/dL (0.2-1.0) Urinalysis Test 12/28/24 22:20 Urine Color Colorless (Yellow) Urine Clarity Ex.turbid (Clear) Urine pH 6.0 (5.0-9.0) Urine Specific [place] 1.008 (1.001-1.035) Urine Protein Negative (Negative) Urine Ketones Negative (Negative) Urine Blood 1+ /uL (Negative) H Urine Nitrite Negative (Negative) Urine Bilirubin Negative (Negative) Urine Urobilinogen Normal mg/dL (Negative) Urine Leukocyte Esterase 2+ /uL (Negative) Urine RBC 21 /hpf (0 - 4) Urine WBC Clumps Present /hpf (None Seen) Urine Microscopic WBC 1421 /HPF (0-5) H Urine Squamous Epithelial Cells None seen /hpf (<5) Urine Bacteria None seen /hpf (None Seen) Urine Glucose Normal mg/dL (Normal) Labs and/or images reviewed: Labs reviewed by me, Image(s) reviewed by me Assessment/Plan Assessment/Plan History of Present Illness 79-year-old male presents for evaluation of altered mental status. Patient with a history of quadriplegia/bed ridden presents with a one day history of altered mental status. Per daughters at the bedside her mother's normally alert and oriented x4. She noted her becoming progressively more altered starting today in the morning. She reports recently finishing a course of antibiotics for a recurrent UTI. Past Medical History Hypertension, CHF, AFib, quadriplegic 12/29: Patient here with ALOC, patient is quadriplegic. Has leukocytosis with neutrophilia. Pending UA concerning for infection with leukocyte esterase, WBC. Urine bacterial culture pending. We will check TSH, ammonia,. CT head non-con showing left mastoid air cell effusion, bilateral TMJ arthrosis, diffuse cerebral loss volume, microvascular ischemia,. No acute hemorrhage or the other concerning findings. Patient having low-grade fevers., hypotensive. - patient is hypotensive, has CHF, echo 1 year ago EF 65, has diastolic dysfunction. Severe pulmonary hypertension. RVSP 53. - blood cultures pending, urine culture pending, on broad-spectrum antibiotics ertapenem. Initially received vanc Zosyn.. Continue p.o. medications. CTA abdomen - We will do trial of 250 bolus, repeat BNP and lactic to look for end-organ. Patient is on oxygen, unknown cause, no COPD history. Unknown reason. We will start midodrine and hydrocortisone injections and continue ertapenem, waiting for urine culture. If blood pressure does not improve with monitoring hydrocortisone and lactic is elevated, patient will need Levophed. Assessment Metabolic encephalopathy Recurrent UTI Quadriplegia Acute kidney injury Leukocytosis Plan Urine bacterial culture pending Blood culture pending Ertapenem IV Wound consult Resume home medications: Amiodarone, aspirin, Lipitor, furosemide,. Continue treatment per orders. Plan discussed with: Patient My Orders Orders - CHRIS PIERSON MD Procedure Category Date Status Time Hydrocodone-Acet PHA 12/29/24 In Process 5/325mg Tab ([place] 13:45 Date of Service: Dec 29, 2024 Billing Provider: CHRIS PIERSON MD Common Visit Codes: [id number] INP/OBS CARE(HIGH) CHRIS PIERSON MD Dec 29, 2024 15:03
[2024-12-29] MEDS: SODIUM CHLORIDE 0.9% 250 ML IV ONE (16:22)
[2024-12-29] MEDS: HYDROCORTISONE SOD SUCC 100 MG/2ML INJ VIAL IV SCH (16:26)
--- NOTE | 2024-12-29 16:35 | DVH ---
EXAM DESCRIPTION: CT CT AB PEL WO CON-NO ORAL OR IV CLINICAL HISTORY: Hydronephrosis rule out, nephrolithiasis ruled out COMPARISON: MRI LUMBAR SPINE WO CONTRAST on DOS: 01/08/24, MRI LEFT KNEE WO CONTRAST on DOS: 01/08/24, XY L KNEE 3V XRAY on DOS: 12/29/23, XY LUMBAR SPINE 3 VIEW on DOS: 12/29/23, XY L HAND 2V XRAY on DOS: 08/26/23 TECHNIQUE: CT abdomen and pelvis without IV contrast was performed. Coronal and sagittal MPR images were generated.CTDI/ DLP = 20.33 / 1115.63 Dose reduction technique with one or more of the following methods was performed: Automated exposure control, adjustment of the mA and/or kV according to patient size, use of iterative reconstruction technique FINDINGS: Lower chest: Bibasilar subsegmental atelectasis versus scarring. Patchy opacities in the lung bases. Aneurysmal ascending aorta measuring 4.2 cm. Liver: Homogenous in attenuation. . Biliary: No calcified gallstones. No biliary ductal dilatation. Pancreas: No fat stranding or focal lesion. Spleen: Normal in size.. Adrenal glands: No nodularity. Kidneys: No nephrolithiasis. No hydroureteronephrosis. . Bladder: Decompressed via Jacobo catheter, but not well visualized due to streak artifact from the hip hardware. Reproductive organs: Not well visualized due to streak artifact from the hip hardware. Bowel: The rectum is to moderate to severely distended with stool. No definite rectal wall thickening. Moderate to large colonic stool burden. No definite evidence of bowel obstruction. Normal appendix. Small hiatal hernia. . Peritoneum: No free fluid. No free air. Vessels: Normal caliber abdominal aorta. Moderate atherosclerotic calcifications.. Lymph nodes: No suspicious lymph nodes. Soft tissues: Unremarkable. . Osseous structures: No acute fracture or subluxation. No suspicious osseous lesions. Degenerative changes of the visualized thoracolumbar spine. Changes from bilateral hip arthroplasty. IMPRESSION: 1. Moderate to large colonic stool burden with moderate to severe distention of the rectum with stool, concerning for fecal impaction. 2. Patchy opacities in the lung bases. Recommend further evaluation dedicated CT chest. 3. Aneurysmal ascending area measuring 4.2 cm.
[2024-12-29 17:20] LABS: Chloride 104 mmol/L (98-107); Sodium 140 mmol/L (136-145)
[2024-12-29 17:21] LABS: Anion Gap 9 (5-15); Carbon Dioxide 27 mmol/L (20-31)
[2024-12-29 17:26] LABS: Glucose 87 mg/dL (74-106)
[2024-12-29 17:27] LABS: BUN/Creatinine Ratio 28.7 (10.0-20.0)
[2024-12-29 17:34] LABS: Blood Urea Nitrogen 25 mg/dL (9-23); Calcium 8.2 mg/dL (8.7-10.4); Potassium 2.6 mmol/L (3.5-5.1)
[2024-12-29] MEDS: MIDODRINE HCL 10 MG TAB PO SCH (18:12)
[2024-12-29] MEDS: ATORVASTATIN 20 MG TAB PO SCH (21:20)
[2024-12-30] VITALS (8 sets, daily range): BP systolic 87–98; BP diastolic 51–65; PULSE 49–77; RESP 16–19; TEMP 97.5–98.7; O2SAT 94–99
[2024-12-30 07:45] LABS: Hematocrit 31.4 % (36.0-46.0); Hemoglobin 10.3 g/dL (12.2-16.2); Mean Corpuscular Hemoglobin 27.5 pg (28.0-32.0); Mean Corpuscular Volume 83.9 fL (80.0-100.0)
[2024-12-30 08:06] LABS: Alkaline Phosphatase 99 U/L (46-116); Anion Gap 11 (5-15); BUN/Creatinine Ratio 22.7 (10.0-20.0); Blood Urea Nitrogen 20 mg/dL (9-23); Calcium 8.8 mg/dL (8.7-10.4); Carbon Dioxide 26 mmol/L (20-31); Chloride 103 mmol/L (98-107); Sodium 140 mmol/L (136-145)
[2024-12-30 08:07] LABS: Alanine Aminotransferase < 9 U/L (7-40); Albumin 3.3 g/dL (3.2-4.8); Bilirubin, Total 0.3 mg/dL (0.2-1.0); Glucose 143 mg/dL (74-106); Total Protein 5.7 g/dL (5.7-8.2)
[2024-12-30 08:10] LABS: Potassium 2.4 mmol/L (3.5-5.1)
[2024-12-30 08:48] LABS: Total Cells Counted 100.0 (100)
[2024-12-30] MEDS: POTASSIUM EFFERVESENT TAB 25 MEQ PO ONE (13:09)
--- NOTE | 2024-12-30 13:11 | DVHPN2 ---
Reviewed: H&P Changes from previous H/P or p: No Changes General: Per HPI Objective Vitals Vital Signs Date Time Temp Pulse Resp B/P (MAP) Pulse Ox O2 Delivery O2 Flow Rate FiO2 12/30/24 11:24 98.3 12/30/24 09:52 96/65 12/30/24 09:00 61 18 97 12/30/24 08:00 Nasal Cannula* 3 32 Intake/Output Intake and Output 12/30/24 07:00 Intake Total 1100 ml Output Total 500 ml Balance 600 ml Intake Oral 1050 ml IV Total 50 ml Output Urine Total 500 ml # Bowel Movements 1 Exam Gen: 79-year-old female in mild distress. Skin: Warm, dry, normal color and texture, multiple wounds to sacrum and bilateral heels HEENT: Normocephalic atraumatic, mucous membranes moist and pink. Neck: Cervical and supraclavicular nodes normal without enlargement, trachea is midline, thyroid gland is normal without masses. Pulmonary: Clear to auscultation and percussion bilaterally. Cardiac: Regular rate and rhythm. No murmur Abdomen: Soft, nontender, nondistended, bowel sounds present all 4 quadrants, no guarding, no rigidity, no organomegaly. Extremities: No cyanosis, clubbing, no edema Neuro: Lethargic, quadriplegic Medications Current Medications Medications Dose Ordered Sig/Elvin Route Start Time Stop Time Status Last Admin Dose Admin Patient Own Medication 1 gm DAILY IV 12/29/24 10:00 UNV Amiodarone HCl 200 mg DAILY PO 12/29/24 10:00 12/30/24 09:51 200 MG Aspirin 81 mg DAILY PO 12/29/24 10:00 12/30/24 09:52 81 MG Furosemide 40 mg DAILY PO 12/29/24 10:00 Pantoprazole Sodium 40 mg DAILY@0600 PO 12/29/24 06:00 12/30/24 05:43 40 MG Atorvastatin Calcium 20 mg HS PO 12/29/24 22:00 12/29/24 21:20 20 MG Ondansetron HCl 4 mg Q4HP PRN IV 12/29/24 00:30 Enoxaparin Sodium 30 mg DAILY SC 12/29/24 10:00 12/30/24 09:51 30 MG Acetaminophen 650 mg Q6HP PRN PO 12/29/24 00:30 12/30/24 10:24 650 MG Ertapenem 50 ml @ 100 mls/hr DAILY IV 12/29/24 10:00 12/30/24 10:26 100 MLS/HR Acetaminophen/ Hydrocodone Bitart 1 tab Q4HPRN PRN PO 12/29/24 13:45 Midodrine 10 mg TID@0600,1200,1800 PO 12/29/24 18:00 12/30/24 05:43 10 MG Hydrocortisone Sodium Succinate 100 mg Q12HR IV 12/29/24 16:00 01/03/25 15:59 12/30/24 09:51 100 MG Laboratory Results Laboratory Tests 12/30/24 06:32 Chemistry Test 12/29/24 16:37 12/30/24 06:32 Calcium Level 8.2 mg/dL (8.7-10.4) L 8.8 mg/dL (8.7-10.4) Albumin 3.3 g/dL (3.2-4.8) Total Protein 5.7 g/dL (5.7-8.2) LFT Test 12/30/24 06:32 Alanine Aminotransferase (ALT) < 9 U/L (7-40) Alkaline Phosphatase 99 U/L (46-116) Aspartate Amino Transferase (AST) 15 U/L (13-40) Total Bilirubin 0.3 mg/dL (0.2-1.0) Urinalysis Test 12/28/24 22:20 Urine Color Colorless (Yellow) Urine Clarity Ex.turbid (Clear) Urine pH 6.0 (5.0-9.0) Urine Specific [place] 1.008 (1.001-1.035) Urine Protein Negative (Negative) Urine Ketones Negative (Negative) Urine Blood 1+ /uL (Negative) H Urine Nitrite Negative (Negative) Urine Bilirubin Negative (Negative) Urine Urobilinogen Normal mg/dL (Negative) Urine Leukocyte Esterase 2+ /uL (Negative) Urine RBC 21 /hpf (0 - 4) Urine WBC Clumps Present /hpf (None Seen) Urine Microscopic WBC 1421 /HPF (0-5) H Urine Squamous Epithelial Cells None seen /hpf (<5) Urine Bacteria None seen /hpf (None Seen) Urine Glucose Normal mg/dL (Normal) Microbiology Microbiology Date/Time Source Procedure Growth Status 12/29/24 18:14 Leg Left Gram Stain - Final Resulted 12/29/24 18:14 Leg Left Wound Culture - Preliminary Resulted 12/28/24 22:20 Voided Urine Urine Culture - Preliminary Resulted 12/28/24 21:45 Blood Blood Culture - Preliminary NO GROWTH AFTER 24 HOURS OF INCUBATION. Resulted Labs and/or images reviewed: Labs reviewed by me, Image(s) reviewed by me Assessment/Plan Assessment/Plan History of Present Illness 79-year-old male presents for evaluation of altered mental status. Patient with a history of quadriplegia/bed ridden presents with a one day history of altered mental status. Per daughters at the bedside her mother's normally alert and oriented x4. She noted her becoming progressively more altered starting today in the morning. She reports recently finishing a course of antibiotics for a recurrent UTI. Past Medical History Hypertension, CHF, AFib, quadriplegic 12/29: Patient here with ALOC, patient is quadriplegic. Has leukocytosis with neutrophilia. Pending UA concerning for infection with leukocyte esterase, WBC. Urine bacterial culture pending. We will check TSH, ammonia,. CT head non-con showing left mastoid air cell effusion, bilateral TMJ arthrosis, diffuse cerebral loss volume, microvascular ischemia,. No acute hemorrhage or the other concerning findings. Patient having low-grade fevers., hypotensive. - patient is hypotensive, has CHF, echo 1 year ago EF 65, has diastolic dysfunction. Severe pulmonary hypertension. RVSP 53. - blood cultures pending, urine culture pending, on broad-spectrum antibiotics ertapenem. Initially received vanc Zosyn.. Continue p.o. medications. CTA abdomen - We will do trial of 250 bolus, repeat BNP and lactic to look for end-organ. Patient is on oxygen, unknown cause, no COPD history. Unknown reason. We will start midodrine and hydrocortisone injections and continue ertapenem, waiting for urine culture. If blood pressure does not improve with monitoring hydrocortisone and lactic is elevated, patient will need Levophed. 12/30: Blood pressure better with hydrocortisone and midodrine. We will continue hydrocortisone for 4 more days. Pending urine culture. Patient is A&O x4. Patient is bradycardic in 50s but asymptomatic. Continue broad-spectrum antibiotic, pending urine culture, patient has chronic Jacobo, this is likely complicated UTI due to Jacobo. Assessment Metabolic encephalopathy Recurrent UTI Quadriplegia Acute kidney injury Leukocytosis Plan Urine bacterial culture pending Blood culture pending Ertapenem IV Wound consult Resume home medications: Amiodarone, aspirin, Lipitor, furosemide,. Continue treatment per orders. Tele Full code Plan discussed with: Patient My Orders Orders - CHRIS PIERSON MD Procedure Category Date Status Time Hydrocodone-Acet PHA 12/29/24 In Process 5/325mg Tab ([place] 13:45 Ct Ab Pel Wo Con-No CT 12/29/24 Resulted Oral Or Iv 15:00 Transfer Orders XFER 12/29/24 Transmitted 15:59 Midodrine Tablet PHA 12/29/24 In Process (Proamatine Tablet) 18:00 Hydrocortisone PHA 12/29/24 In Process Succinate Inj 16:00 Wound Culture W/ Gs AMBROSIO 12/29/24 In Process 18:11 Date of Service: Dec 30, 2024 Billing Provider: CHRIS PIERSON MD Common Visit Codes: [id number] INP/OBS CARE(HIGH) CHRIS PIERSON MD Dec 30, 2024 13:11
[2024-12-30] MEDS ORDERED: POTASSIUM CHLORIDE 40 MEQ in SOD CHL 0.45% 1,000 ML IV SCH (15:00)
[2024-12-31] VITALS (8 sets, daily range): BP systolic 86–117; BP diastolic 52–69; PULSE 48–97; RESP 17–18; TEMP 96–98.2; O2SAT 96–98
[2024-12-31 07:28] LABS: Hemoglobin 10.5 g/dL (12.2-16.2); Nucleated Red Blood Cells % 0.1 %
[2024-12-31 07:30] LABS: Hematocrit 31.6 % (36.0-46.0); Mean Corpuscular Hemoglobin 27.6 pg (28.0-32.0); Mean Corpuscular Volume 82.9 fL (80.0-100.0)
[2024-12-31 07:58] LABS: Anion Gap 13 (5-15); Carbon Dioxide 26 mmol/L (20-31); Chloride 104 mmol/L (98-107); Sodium 143 mmol/L (136-145)
[2024-12-31 07:59] LABS: Calcium 9.5 mg/dL (8.7-10.4)
[2024-12-31 08:03] LABS: Potassium 2.9 mmol/L (3.5-5.1)
[2024-12-31 08:04] LABS: BUN/Creatinine Ratio 28.4 (10.0-20.0)
[2024-12-31 08:05] LABS: Blood Urea Nitrogen 25 mg/dL (9-23); Glucose 175 mg/dL (74-106)
--- NOTE | 2024-12-31 10:28 | DVHPN2 ---
Reviewed: H&P Changes from previous H/P or p: No Changes General: Per HPI Objective Vitals Vital Signs Date Time Temp Pulse Resp B/P (MAP) Pulse Ox O2 Delivery O2 Flow Rate FiO2 12/31/24 05:00 96.0 55 17 93/58 (70) 96 96.0 12/30/24 20:00 Nasal Cannula* 3 32 Intake/Output Intake and Output 12/31/24 07:00 Intake Total 1320 ml Output Total 1175 ml Balance 145 ml Intake Oral 1320 ml Output Urine Total 1175 ml # Bowel Movements 3 Exam Gen: 79-year-old female in mild distress. Skin: Warm, dry, normal color and texture, multiple wounds to sacrum and bilateral heels HEENT: Normocephalic atraumatic, mucous membranes moist and pink. Neck: Cervical and supraclavicular nodes normal without enlargement, trachea is midline, thyroid gland is normal without masses. Pulmonary: Clear to auscultation and percussion bilaterally. Cardiac: Regular rate and rhythm. No murmur Abdomen: Soft, nontender, nondistended, bowel sounds present all 4 quadrants, no guarding, no rigidity, no organomegaly. Extremities: No cyanosis, clubbing, no edema Neuro: Lethargic, quadriplegic Medications Current Medications Medications Dose Ordered Sig/Elvin Route Start Time Stop Time Status Last Admin Dose Admin Patient Own Medication 1 gm DAILY IV 12/29/24 10:00 UNV Amiodarone HCl 200 mg DAILY PO 12/29/24 10:00 12/30/24 09:51 200 MG Aspirin 81 mg DAILY PO 12/29/24 10:00 12/30/24 09:52 81 MG Furosemide 40 mg DAILY PO 12/29/24 10:00 Pantoprazole Sodium 40 mg DAILY@0600 PO 12/29/24 06:00 12/31/24 05:29 40 MG Atorvastatin Calcium 20 mg HS PO 12/29/24 22:00 12/30/24 20:57 20 MG Ondansetron HCl 4 mg Q4HP PRN IV 12/29/24 00:30 Enoxaparin Sodium 30 mg DAILY SC 12/29/24 10:00 12/30/24 09:51 30 MG Acetaminophen 650 mg Q6HP PRN PO 12/29/24 00:30 12/30/24 10:24 650 MG Ertapenem 50 ml @ 100 mls/hr DAILY IV 12/29/24 10:00 12/30/24 10:26 100 MLS/HR Acetaminophen/ Hydrocodone Bitart 1 tab Q4HPRN PRN PO 12/29/24 13:45 Midodrine 10 mg TID@0600,1200,1800 PO 12/29/24 18:00 12/31/24 05:29 10 MG Hydrocortisone Sodium Succinate 100 mg Q12HR IV 12/29/24 16:00 01/03/25 15:59 12/30/24 20:57 100 MG Potassium Chloride 40 meq/ Sodium Chloride 1,020 ml @ 60 mls/hr Q17H IV 12/30/24 15:00 Cancel Laboratory Results Laboratory Tests 12/31/24 05:57 Chemistry Test 12/31/24 05:57 Calcium Level 9.5 mg/dL (8.7-10.4) Urinalysis Test 12/28/24 22:20 Urine Color Colorless (Yellow) Urine Clarity Ex.turbid (Clear) Urine pH 6.0 (5.0-9.0) Urine Specific [place] 1.008 (1.001-1.035) Urine Protein Negative (Negative) Urine Ketones Negative (Negative) Urine Blood 1+ /uL (Negative) H Urine Nitrite Negative (Negative) Urine Bilirubin Negative (Negative) Urine Urobilinogen Normal mg/dL (Negative) Urine Leukocyte Esterase 2+ /uL (Negative) Urine RBC 21 /hpf (0 - 4) Urine WBC Clumps Present /hpf (None Seen) Urine Microscopic WBC 1421 /HPF (0-5) H Urine Squamous Epithelial Cells None seen /hpf (<5) Urine Bacteria None seen /hpf (None Seen) Urine Glucose Normal mg/dL (Normal) Microbiology Microbiology Date/Time Source Procedure Growth Status 12/29/24 18:14 Leg Left Gram Stain - Final Resulted 12/29/24 18:14 Leg Left Wound Culture - Preliminary Resulted 12/28/24 22:20 Voided Urine Urine Culture - Preliminary Resulted 12/28/24 21:45 Blood Blood Culture - Preliminary NO GROWTH AFTER 48 HOURS OF INCUBATION. Resulted Labs and/or images reviewed: Labs reviewed by me, Image(s) reviewed by me Assessment/Plan Assessment/Plan History of Present Illness 79-year-old male presents for evaluation of altered mental status. Patient with a history of quadriplegia/bed ridden presents with a one day history of altered mental status. Per daughters at the bedside her mother's normally alert and oriented x4. She noted her becoming progressively more altered starting today in the morning. She reports recently finishing a course of antibiotics for a recurrent UTI. Past Medical History Hypertension, CHF, AFib, quadriplegic 12/29: Patient here with ALOC, patient is quadriplegic. Has leukocytosis with neutrophilia. Pending UA concerning for infection with leukocyte esterase, WBC. Urine bacterial culture pending. We will check TSH, ammonia,. CT head non-con showing left mastoid air cell effusion, bilateral TMJ arthrosis, diffuse cerebral loss volume, microvascular ischemia,. No acute hemorrhage or the other concerning findings. Patient having low-grade fevers., hypotensive. - patient is hypotensive, has CHF, echo 1 year ago EF 65, has diastolic dysfunction. Severe pulmonary hypertension. RVSP 53. - blood cultures pending, urine culture pending, on broad-spectrum antibiotics ertapenem. Initially received vanc Zosyn.. Continue p.o. medications. CTA abdomen - We will do trial of 250 bolus, repeat BNP and lactic to look for end-organ. Patient is on oxygen, unknown cause, no COPD history. Unknown reason. We will start midodrine and hydrocortisone injections and continue ertapenem, waiting for urine culture. If blood pressure does not improve with monitoring hydrocortisone and lactic is elevated, patient will need Levophed. 12/30: Blood pressure better with hydrocortisone and midodrine. We will continue hydrocortisone for 4 more days. Pending urine culture. Patient is A&O x4. Patient is bradycardic in 50s but asymptomatic. Continue broad-spectrum antibiotic, pending urine culture, patient has chronic Jacobo, this is likely complicated UTI due to Jacobo. 12/31: Urine culture still pending, we will contact lab for update. Patient apparently uses oxygen concentrator at home currently on 3 L nasal cannula. We will start incentive spirometer to see if can wean off oxygen. Otherwise pending for urine culture to see if patient needs IV or p.o. home antibiotics. Patient's blood pressure has been good since starting home midodrine. Urine Jacobo with significant urine output. We will convert hydrocortisone to p.o. 100 b.i.d.. To be given for next 2 days. -urine culture returns with Klebsiella ESBL, patient on ertapenem. Also with staph aureus patient is started on Unasyn, also with stenotrophomonas, patient is started on p.o. Bactrim. - can likely discharge patient on ertapenem and Bactrim for 10 days. We will start midline and social orders for antibiotics. Assessment Metabolic encephalopathy Recurrent UTI Quadriplegia Acute kidney injury Leukocytosis Plan Urine bacterial culture pending Blood culture pending Ertapenem IV Wound consult Resume home medications: Amiodarone, aspirin, Lipitor, furosemide,. Continue treatment per orders. Tele Full code Plan discussed with: Patient Date of Service: Dec 31, 2024 Billing Provider: CHRIS PIERSON MD Common Visit Codes: [id number] INP/OBS CARE(HIGH) CHRIS PIERSON MD Dec 31, 2024 10:28
[2024-12-31] MEDS: HYDROcodone-ACET 5/325MG TAB PO PRN (10:58)
[2024-12-31] MEDS: AMPICILLIN & SULBACTAM SODIUM 3 GM in SODIUM CHL 0.9% 100 ML IV SCH (17:11)
[2024-12-31] MEDS: SULFAMETHOX W/TRIMETH(800/160MG) DS TAB PO SCH (17:11)
[2024-12-31] MEDS: HYDROCORTISONE 10 MG TAB PO SCH (22:00)
[2025-01-01] VITALS (8 sets, daily range): BP systolic 88–111; BP diastolic 54–70; PULSE 47–58; RESP 12–18; TEMP 97.5–98; O2SAT 94–100
[2025-01-01 06:10] LABS: Hemoglobin 10.3 g/dL (12.2-16.2)
[2025-01-01 06:12] LABS: Alanine Aminotransferase 18 U/L (7-40); Alkaline Phosphatase 98 U/L (46-116); Anion Gap 2 (5-15); BUN/Creatinine Ratio 27.2 (10.0-20.0); Blood Urea Nitrogen 22 mg/dL (9-23); Calcium 8.8 mg/dL (8.7-10.4); Carbon Dioxide 28 mmol/L (20-31); Glucose 97 mg/dL (74-106); Sodium 143 mmol/L (136-145)
[2025-01-01 06:14] LABS: Hematocrit 31.3 % (36.0-46.0); Mean Corpuscular Hemoglobin 27.3 pg (28.0-32.0); Mean Corpuscular Volume 82.5 fL (80.0-100.0); Nucleated Red Blood Cells % 0.0 %
[2025-01-01 06:35] LABS: Albumin 3.2 g/dL (3.2-4.8); Bilirubin, Total 0.2 mg/dL (0.2-1.0); Chloride 113 mmol/L (98-107); Potassium 2.7 mmol/L (3.5-5.1); Total Protein 5.6 g/dL (5.7-8.2)
[2025-01-01] MEDS: ENOXAPARIN SOD 40 MG/0.4 ML SYRINGE SC SCH (09:42)
[2025-01-01] MEDS: HYDROCORTISONE 10 MG TAB PO ONE (11:59)
--- NOTE | 2025-01-01 14:33 | DVHDS2 ---
Discharge Summary Date of Admission Dec 29, 2024 at 00:30 Date of Discharge: Jan 01, 2025 Labs/Diagnostic Data: Laboratory Results Test 01/01/25 05:03 12/30/24 06:32 12/29/24 16:37 12/29/24 00:24 White Blood Count 13.2 10^3/uL (4.4-10.8) Red Blood Count 3.79 10^6/uL (4.0-5.20) Hemoglobin 10.3 g/dL (12.2-16.2) Hematocrit 31.3 % (36.0-46.0) Mean Corpuscular Volume 82.5 fL (80.0-100.0) Mean Corpuscular Hemoglobin 27.3 pg (28.0-32.0) Mean Corpuscular Hemoglobin Concent 33.0 g/dL (32.0-36.0) Red Cell Distribution Width 15.0 % (11.8-14.3) Platelet Count 529 10^3/uL (140-450) Mean Platelet Volume 7.3 fL (6.9-10.8) Neutrophils (%) (Auto) 76.0 % (37.0-80.0) Lymphocytes (%) (Auto) 14.0 % (10.0-50.0) Monocytes (%) (Auto) 9.7 % (0.0-12.0) Eosinophils (%) (Auto) 0.1 % (0.0-7.0) Basophils (%) (Auto) 0.2 % (0.0-2.0) Neutrophils # (Auto) 10.0 10 ^3/uL (1.6-8.6) Lymphocytes # (Auto) 1.8 10 ^3/uL (0.4-5.4) Monocytes # (Auto) 1.3 10 ^3/uL (0-1.3) Eosinophils # (Auto) 0 10 ^3/uL (0-0.8) Basophils # (Auto) 0 10 ^3/uL (0-0.2) Nucleated Red Blood Cells 0.0 % Sodium Level 143 mmol/L (136-145) Potassium Level 2.7 mmol/L (3.5-5.1) Chloride Level 113 mmol/L (98-107) Carbon Dioxide Level 28 mmol/L (20-31) Anion Gap 2 (5-15) Blood Urea Nitrogen 22 mg/dL (9-23) Creatinine 0.81 mg/dL (0.550-1.02) Glomerular Filtration Rate Calc 74 mL/min (>90) BUN/Creatinine Ratio 27.2 (10.0-20.0) Serum Glucose 97 mg/dL (74-106) Calcium Level 8.8 mg/dL (8.7-10.4) Total Bilirubin 0.2 mg/dL (0.2-1.0) Aspartate Amino Transferase (AST) 33 U/L (13-40) Alanine Aminotransferase (ALT) 18 U/L (7-40) Alkaline Phosphatase 98 U/L (46-116) Total Protein 5.6 g/dL (5.7-8.2) Albumin 3.2 g/dL (3.2-4.8) Differential Total Cells Counted 100.0 (100) Neutrophils % (Manual) 92 (37.0-80.0) Band Neutrophils % (Manual) 0 Lymphocytes % (Manual) 5 (10.0-50.0) Monocytes % (Manual) 3 (0-12) Eosinophils % (Manual) 0 (0-7) Basophils % (Manual) 0 (0.0-2.0) Metamyelocytes % (manual) 0 Myelocytes % (Manual) 0 Promyelocytes % (Manual) 0 Blast Cells % (Manual) 0 Reactive Lymphocytes 0 Platelet Estimate Adequate Lactic Acid Level 1.0 mmol/L (0.4-2.0) Troponin I High Sensitivity 13 ng/L (</=34) Test 12/28/24 22:20 12/28/24 21:45 Urine Color Colorless (Yellow) Urine Clarity Ex.turbid (Clear) Urine pH 6.0 (5.0-9.0) Urine Specific [place] 1.008 (1.001-1.035) Urine Protein Negative (Negative) Urine Ketones Negative (Negative) Urine Blood 1+ /uL (Negative) Urine Nitrite Negative (Negative) Urine Bilirubin Negative (Negative) Urine Urobilinogen Normal mg/dL (Negative) Urine Leukocyte Esterase 2+ /uL (Negative) Urine RBC 21 /hpf (0 - 4) Urine WBC Clumps Present /hpf (None Seen) Urine Microscopic WBC 1421 /HPF (0-5) Urine Squamous Epithelial Cells None seen /hpf (<5) Urine Bacteria None seen /hpf (None Seen) Urine Glucose Normal mg/dL (Normal) Prothrombin Time 11.4 sec (9.3-11.8) Prothrombin Time INR 1.08 (0.9-1.15) Activated Partial Thromboplast Time 26.7 SEC (24.5-34.5) Magnesium Level 2.0 mg/dL (1.6-2.6) Other Laboratory Tests 01/01/25 05:03 Brief Hx & Hospital Course: 79-year-old male presents for evaluation of altered mental status. Patient with a history of quadriplegia/bed ridden presents with a one day history of altered mental status. Per daughters at the bedside her mother's normally alert and oriented x4. She noted her becoming progressively more altered starting today in the morning. She reports recently finishing a course of antibiotics for a recurrent UTI. Past Medical History Hypertension, CHF, AFib, quadriplegic 12/29: Patient here with ALOC, patient is quadriplegic. Has leukocytosis with neutrophilia. Pending UA concerning for infection with leukocyte esterase, WBC. Urine bacterial culture pending. We will check TSH, ammonia,. CT head non-con showing left mastoid air cell effusion, bilateral TMJ arthrosis, diffuse cerebral loss volume, microvascular ischemia,. No acute hemorrhage or the other concerning findings. Patient having low-grade fevers., hypotensive. - patient is hypotensive, has CHF, echo 1 year ago EF 65, has diastolic dysfunction. Severe pulmonary hypertension. RVSP 53. - blood cultures pending, urine culture pending, on broad-spectrum antibiotics ertapenem. Initially received vanc Zosyn.. Continue p.o. medications. CTA abdomen - We will do trial of 250 bolus, repeat BNP and lactic to look for end-organ. Patient is on oxygen, unknown cause, no COPD history. Unknown reason. We will start midodrine and hydrocortisone injections and continue ertapenem, waiting for urine culture. If blood pressure does not improve with monitoring hydrocortisone and lactic is elevated, patient will need Levophed. 12/30: Blood pressure better with hydrocortisone and midodrine. We will continue hydrocortisone for 4 more days. Pending urine culture. Patient is A&O x4. Patient is bradycardic in 50s but asymptomatic. Continue broad-spectrum antibiotic, pending urine culture, patient has chronic Jacobo, this is likely complicated UTI due to Jacobo. 12/31: Urine culture still pending, we will contact lab for update. Patient apparently uses oxygen concentrator at home currently on 3 L nasal cannula. We will start incentive spirometer to see if can wean off oxygen. Otherwise pending for urine culture to see if patient needs IV or p.o. home antibiotics. Patient's blood pressure has been good since starting home midodrine. Urine Jacobo with significant urine output. We will convert hydrocortisone to p.o. 100 b.i.d.. To be given for next 2 days. -urine culture returns with Klebsiella ESBL, patient on ertapenem. Also with staph aureus patient is started on Unasyn, also with stenotrophomonas, patient is started on p.o. Bactrim. - can likely discharge patient on ertapenem and Bactrim for 10 days. We will start midline and social orders for antibiotics. 01/01: Midline has been inserted, patient needs total 10 days of antibiotics. We will plan for discharge today, patient can likely go home as soon as the home antibiotics have been arranged with home health. Patient will also need Bactrim for 10 days. Plan is total 10 days of ertapenem IV once daily through midline and Bactrim DS twice daily for 10 days. Vital signs stable, stable for discharge today. Continue home medications. Follow up with PCP to review discharge. 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 pcp to repeat potassium levels 1 week to ensure ongoing need for this supplement. - Bactrim DS twice daily for 10 days. - holding off metoprolol due to bradycardia -continue midodrine 10 mg 3 times daily -Continue hydrocortisone 20 mg for 3 days. 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 Acute kidney injury Leukocytosis Discharge Disposition: Home Discharge Instruct/Medications Scheduled Allopurinol (Zyloprim Tablet), 100 MG PO DAILY Amiodarone Hcl (Amiodarone Hcl), 1 TAB PO DAILY Aspirin (Aspirin Low Dose), 1 TAB PO DAILY, (Reported) Cholecalciferol (Vitamin D3), 125 MCG PO DAILY, (Reported) Furosemide (Furosemide), 1 TAB PO BID, (Reported) Hydrocortisone Base (Hydrocortisone), 20 MG PO DAILY Meloxicam (Meloxicam), 1 TAB PO DAILY, (Reported) Metoprolol Succinate (Metoprolol Succinate Er), 1 TAB PO DAILY, (Reported) Metoprolol Succinate (Toprol Xl), 1 TAB PO DAILY Midodrine HCl (Midodrine HCl), 10 MG PO TID Pantoprazole Sodium Sesquihydr (Pantoprazole Sodium), 40 MG PO BID Pantoprazole Sodium Sesquihydr (Pantoprazole Sodium), 40 MG PO BID@0600,1700 Potassium Chloride (Klor-Con M20), 20 MEQ PO DAILY Simvastatin (Simvastatin), 1 TAB PO DAILY, (Reported) Sucralfate (Sucralfate), 1 GM PO QIDACHS Sulfamethoxazole W/Trimethopri (Bactrim Ds Tablet), 1 TAB PO BID Discharge Statement: "Patient was advised to return to the ER or call 911 if any headaches, dizziness, shortness of breath, chest pain, abdominal pain, bleeding, fevers, or worsening of medical condition. Patient was counseled about treatment plan, medications, possible side effects, patientverbalized understanding. All questions were answered to the best of my ability. This discharge took greater then 30 minutes in planning, reviewing documentation, counseling the patient, and discussing with other team members." ASSESSMENT ASSESSMENT Assessment Date of Service: Jan 01, 2025 Billing Provider: CHRIS PIERSON MD Common Visit Codes: [id number] DISCH DAY >30min CHRIS PIERSON MD Jan 01, 2025 14:33
[2025-01-01] MEDS ORDERED: HYDR20TA19 PO (16:18)
[2025-01-01] MEDS ORDERED: BACDST PO (16:18)
[2025-01-01] MEDS ORDERED: MID10T PO (16:18)
[2025-01-02] VITALS (8 sets, daily range): BP systolic 110–141; BP diastolic 64–90; PULSE 48–64; RESP 13–20; TEMP 97.6–98.1; O2SAT 95–99
[2025-01-02] MEDS: AMPICILLIN & SULBACTAM SODIUM 3 GM in SODIUM CHL 0.9% 100 ML IV SCH (05:57)
--- NOTE | 2025-01-02 13:57 | DVHPN2 ---
Reviewed: H&P Changes from previous H/P or p: No Changes General: Per HPI Objective Vitals Vital Signs Date Time Temp Pulse Resp B/P (MAP) Pulse Ox O2 Delivery O2 Flow Rate FiO2 01/02/25 10:00 141/90 01/02/25 08:00 48 01/02/25 08:00 16 Nasal Cannula* 3 32 01/02/25 05:00 98.0 99 98.0 Intake/Output Intake and Output 01/02/25 07:00 Intake Total 810 ml Output Total 850 ml Balance -40 ml Intake Oral 810 ml Output Urine Total 850 ml # Bowel Movements 1 Exam Gen: 79-year-old female in mild distress. Skin: Warm, dry, normal color and texture, multiple wounds to sacrum and bilateral heels HEENT: Normocephalic atraumatic, mucous membranes moist and pink. Neck: Cervical and supraclavicular nodes normal without enlargement, trachea is midline, thyroid gland is normal without masses. Pulmonary: Clear to auscultation and percussion bilaterally. Cardiac: Regular rate and rhythm. No murmur Abdomen: Soft, nontender, nondistended, bowel sounds present all 4 quadrants, no guarding, no rigidity, no organomegaly. Extremities: No cyanosis, clubbing, no edema Neuro: Lethargic, quadriplegic Medications Current Medications Medications Dose Ordered Sig/Elvin Route Start Time Stop Time Status Last Admin Dose Admin Patient Own Medication 1 gm DAILY IV 12/29/24 10:00 UNV Amiodarone HCl 200 mg DAILY PO 12/29/24 10:00 01/02/25 09:59 200 MG Aspirin 81 mg DAILY PO 12/29/24 10:00 01/02/25 09:59 81 MG Furosemide 40 mg DAILY PO 12/29/24 10:00 01/02/25 10:00 40 MG Pantoprazole Sodium 40 mg DAILY@0600 PO 12/29/24 06:00 01/02/25 05:56 40 MG Atorvastatin Calcium 20 mg HS PO 12/29/24 22:00 01/01/25 21:10 20 MG Ondansetron HCl 4 mg Q4HP PRN IV 12/29/24 00:30 Acetaminophen 650 mg Q6HP PRN PO 12/29/24 00:30 12/30/24 10:24 650 MG Ertapenem 50 ml @ 100 mls/hr DAILY IV 12/29/24 10:00 01/02/25 09:58 100 MLS/HR Acetaminophen/ Hydrocodone Bitart 1 tab Q4HPRN PRN PO 12/29/24 13:45 01/02/25 03:49 1 TAB Midodrine 10 mg TID@0600,1200,1800 PO 12/29/24 18:00 01/02/25 11:52 10 MG Potassium Chloride 40 meq/ Sodium Chloride 1,020 ml @ 60 mls/hr Q17H IV 12/30/24 15:00 Cancel Enoxaparin Sodium 40 mg DAILY SC 01/01/25 10:00 01/02/25 10:00 40 MG Hydrocortisone 100 mg BID PO 12/31/24 22:00 01/02/25 22:00 01/02/25 11:53 100 MG Trimethoprim/ Sulfamethoxazole 1 tab Q12HR PO 12/31/24 15:15 01/02/25 09:59 1 TAB Ampicillin Sodium/ Sulbactam Sodium 3 gm/Sodium Chloride 100 ml @ 100 mls/hr Q6H IV 01/02/25 06:00 01/02/25 11:52 100 MLS/HR Laboratory Results Laboratory Tests 01/01/25 05:03 Urinalysis Test 12/28/24 22:20 Urine Color Colorless (Yellow) Urine Clarity Ex.turbid (Clear) Urine pH 6.0 (5.0-9.0) Urine Specific [place] 1.008 (1.001-1.035) Urine Protein Negative (Negative) Urine Ketones Negative (Negative) Urine Blood 1+ /uL (Negative) H Urine Nitrite Negative (Negative) Urine Bilirubin Negative (Negative) Urine Urobilinogen Normal mg/dL (Negative) Urine Leukocyte Esterase 2+ /uL (Negative) Urine RBC 21 /hpf (0 - 4) Urine WBC Clumps Present /hpf (None Seen) Urine Microscopic WBC 1421 /HPF (0-5) H Urine Squamous Epithelial Cells None seen /hpf (<5) Urine Bacteria None seen /hpf (None Seen) Urine Glucose Normal mg/dL (Normal) Microbiology Microbiology Date/Time Source Procedure Growth Status 12/29/24 18:14 Leg Left Gram Stain - Final Complete 12/29/24 18:14 Wound Culture - Final Stenotrophomonas maltophilia Klebsiella pneumoniae - ESBL Streptococcus Group G Complete 12/28/24 22:20 Voided Urine Urine Culture - Final Klebsiella pneumoniae - ESBL Staphylococcus aureus Complete 12/28/24 21:45 Blood Blood Culture - Preliminary NO GROWTH AFTER 72 HOURS OF INCUBATION. Resulted Labs and/or images reviewed: Labs reviewed by me, Image(s) reviewed by me Assessment/Plan Assessment/Plan History of Present Illness 79-year-old male presents for evaluation of altered mental status. Patient with a history of quadriplegia/bed ridden presents with a one day history of altered mental status. Per daughters at the bedside her mother's normally alert and oriented x4. She noted her becoming progressively more altered starting today in the morning. She reports recently finishing a course of antibiotics for a recurrent UTI. Past Medical History Hypertension, CHF, AFib, quadriplegic 12/29: Patient here with ALOC, patient is quadriplegic. Has leukocytosis with neutrophilia. Pending UA concerning for infection with leukocyte esterase, WBC. Urine bacterial culture pending. We will check TSH, ammonia,. CT head non-con showing left mastoid air cell effusion, bilateral TMJ arthrosis, diffuse cerebral loss volume, microvascular ischemia,. No acute hemorrhage or the other concerning findings. Patient having low-grade fevers., hypotensive. - patient is hypotensive, has CHF, echo 1 year ago EF 65, has diastolic dysfunction. Severe pulmonary hypertension. RVSP 53. - blood cultures pending, urine culture pending, on broad-spectrum antibiotics ertapenem. Initially received vanc Zosyn.. Continue p.o. medications. CTA abdomen - We will do trial of 250 bolus, repeat BNP and lactic to look for end-organ. Patient is on oxygen, unknown cause, no COPD history. Unknown reason. We will start midodrine and hydrocortisone injections and continue ertapenem, waiting for urine culture. If blood pressure does not improve with monitoring hydrocortisone and lactic is elevated, patient will need Levophed. 12/30: Blood pressure better with hydrocortisone and midodrine. We will continue hydrocortisone for 4 more days. Pending urine culture. Patient is A&O x4. Patient is bradycardic in 50s but asymptomatic. Continue broad-spectrum antibiotic, pending urine culture, patient has chronic Jacobo, this is likely complicated UTI due to Jacobo. 12/31: Urine culture still pending, we will contact lab for update. Patient apparently uses oxygen concentrator at home currently on 3 L nasal cannula. We will start incentive spirometer to see if can wean off oxygen. Otherwise pending for urine culture to see if patient needs IV or p.o. home antibiotics. Patient's blood pressure has been good since starting home midodrine. Urine Jacobo with significant urine output. We will convert hydrocortisone to p.o. 100 b.i.d.. To be given for next 2 days. -urine culture returns with Klebsiella ESBL, patient on ertapenem. Also with staph aureus patient is started on Unasyn, also with stenotrophomonas, patient is started on p.o. Bactrim. - can likely discharge patient on ertapenem and Bactrim for 10 days. We will start midline and social orders for antibiotics. 01/02: Patient discharged yesterday. See 01/01 discharge summary for updates. Continue with discharge plan. Patient is stable. Still needs portable oxygen concentrator delivered from home to continue 2 L home oxygen. Otherwise resume discharge plan. Sitter at bedside. Assessment: Metabolic encephalopathy Recurrent UTI Quadriplegia Acute kidney injury Leukocytosis Plan: Ertapenem IV bactrim ds bid Wound consult Resume home medications: Amiodarone, aspirin, Lipitor, furosemide,. Continue treatment per orders. 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
[2025-01-02 17:59] LABS: Base Excess 2.8 mmol/L (-2.0-3.0)
[2025-01-02 18:22] LABS: Base Excess 3.2 mmol/L (-2.0-3.0)
[2025-01-03 01:00] VITALS: BP 110/63; PULSE 54; RESP 16; TEMP 97.6; O2SAT 95
[2025-01-03 05:00] VITALS: BP 127/75; PULSE 51; RESP 18; TEMP 97.9; O2SAT 96
[2025-01-03 08:00] VITALS: PULSE 51; RESP 18
[2025-01-03 09:00] VITALS: BP 127/89; PULSE 55; RESP 18; TEMP 97.6; O2SAT 96
[2025-01-03 12:13] LABS: Hemoglobin 9.4 g/dL (12.2-16.2); Nucleated Red Blood Cells % 0.0 %
[2025-01-03 12:16] LABS: Hematocrit 29.0 % (36.0-46.0); Mean Corpuscular Hemoglobin 26.5 pg (28.0-32.0); Mean Corpuscular Volume 82.0 fL (80.0-100.0)
[2025-01-03 12:32] LABS: Alanine Aminotransferase 21 U/L (7-40); Alkaline Phosphatase 107 U/L (46-116); Anion Gap 11 (5-15); BUN/Creatinine Ratio 21.5 (10.0-20.0); Blood Urea Nitrogen 20 mg/dL (9-23); Calcium 8.8 mg/dL (8.7-10.4); Carbon Dioxide 29 mmol/L (20-31); Chloride 102 mmol/L (98-107); Glucose 79 mg/dL (74-106); Sodium 142 mmol/L (136-145)
[2025-01-03 12:33] LABS: Albumin 3.1 g/dL (3.2-4.8); Bilirubin, Total 0.2 mg/dL (0.2-1.0); Potassium 3.0 mmol/L (3.5-5.1); Total Protein 5.3 g/dL (5.7-8.2)
[2025-01-03 12:36] VITALS: BP 115/81; PULSE 57; RESP 17; TEMP 98; O2SAT 95
[2025-01-03] MEDS ORDERED: POTA-220 PO (13:01)
--- NOTE | 2025-01-03 13:03 | DVHPN2 ---
Reviewed: H&P Changes from previous H/P or p: No Changes General: Per HPI Objective Vitals Vital Signs Date Time Temp Pulse Resp B/P (MAP) Pulse Ox O2 Delivery O2 Flow Rate FiO2 01/03/25 12:36 98.0 57 17 115/81 (92) 95 98.0 01/02/25 20:00 Nasal Cannula* 3 32 Intake/Output Intake and Output 01/03/25 07:00 Intake Total 1180 ml Output Total 1050 ml Balance 130 ml Intake Oral 880 ml IV Total 300 ml Output Urine Total 1050 ml # Bowel Movements 2 Exam Gen: 79-year-old female in mild distress. Skin: Warm, dry, normal color and texture, multiple wounds to sacrum and bilateral heels HEENT: Normocephalic atraumatic, mucous membranes moist and pink. Neck: Cervical and supraclavicular nodes normal without enlargement, trachea is midline, thyroid gland is normal without masses. Pulmonary: Clear to auscultation and percussion bilaterally. Cardiac: Regular rate and rhythm. No murmur Abdomen: Soft, nontender, nondistended, bowel sounds present all 4 quadrants, no guarding, no rigidity, no organomegaly. Extremities: No cyanosis, clubbing, no edema Neuro: Lethargic, quadriplegic Medications Current Medications Medications Dose Ordered Sig/Elvin Route Start Time Stop Time Status Last Admin Dose Admin Patient Own Medication 1 gm DAILY IV 12/29/24 10:00 UNV Amiodarone HCl 200 mg DAILY PO 12/29/24 10:00 01/03/25 09:59 200 MG Aspirin 81 mg DAILY PO 12/29/24 10:00 01/03/25 09:59 81 MG Furosemide 40 mg DAILY PO 12/29/24 10:00 01/03/25 10:03 40 MG Pantoprazole Sodium 40 mg DAILY@0600 PO 12/29/24 06:00 01/03/25 05:39 40 MG Atorvastatin Calcium 20 mg HS PO 12/29/24 22:00 01/02/25 22:12 20 MG Ondansetron HCl 4 mg Q4HP PRN IV 12/29/24 00:30 Acetaminophen 650 mg Q6HP PRN PO 12/29/24 00:30 12/30/24 10:24 650 MG Ertapenem 50 ml @ 100 mls/hr DAILY IV 12/29/24 10:00 01/03/25 10:05 100 MLS/HR Acetaminophen/ Hydrocodone Bitart 1 tab Q4HPRN PRN PO 12/29/24 13:45 01/03/25 03:56 1 TAB Midodrine 10 mg TID@0600,1200,1800 PO 12/29/24 18:00 01/03/25 12:02 10 MG Potassium Chloride 40 meq/ Sodium Chloride 1,020 ml @ 60 mls/hr Q17H IV 12/30/24 15:00 Cancel Enoxaparin Sodium 40 mg DAILY SC 01/01/25 10:00 01/03/25 09:59 40 MG Trimethoprim/ Sulfamethoxazole 1 tab Q12HR PO 12/31/24 15:15 01/03/25 09:59 1 TAB Ampicillin Sodium/ Sulbactam Sodium 3 gm/Sodium Chloride 100 ml @ 100 mls/hr Q6H IV 01/02/25 06:00 01/03/25 12:02 100 MLS/HR Laboratory Results Laboratory Tests 01/03/25 11:28 Chemistry Test 01/03/25 11:28 Albumin 3.1 g/dL (3.2-4.8) L Calcium Level 8.8 mg/dL (8.7-10.4) Total Protein 5.3 g/dL (5.7-8.2) L LFT Test 01/03/25 11:28 Alanine Aminotransferase (ALT) 21 U/L (7-40) Alkaline Phosphatase 107 U/L (46-116) Aspartate Amino Transferase (AST) 29 U/L (13-40) Total Bilirubin 0.2 mg/dL (0.2-1.0) Urinalysis Test 12/28/24 22:20 Urine Color Colorless (Yellow) Urine Clarity Ex.turbid (Clear) Urine pH 6.0 (5.0-9.0) Urine Specific [place] 1.008 (1.001-1.035) Urine Protein Negative (Negative) Urine Ketones Negative (Negative) Urine Blood 1+ /uL (Negative) H Urine Nitrite Negative (Negative) Urine Bilirubin Negative (Negative) Urine Urobilinogen Normal mg/dL (Negative) Urine Leukocyte Esterase 2+ /uL (Negative) Urine RBC 21 /hpf (0 - 4) Urine WBC Clumps Present /hpf (None Seen) Urine Microscopic WBC 1421 /HPF (0-5) H Urine Squamous Epithelial Cells None seen /hpf (<5) Urine Bacteria None seen /hpf (None Seen) Urine Glucose Normal mg/dL (Normal) Blood Gas Results Test 01/02/25 17:51 01/02/25 18:11 Arterial Blood pH 7.528 (7.350-7.450) 7.528 (7.350-7.450) FiO2 % 32.0 21.0 Microbiology Microbiology Date/Time Source Procedure Growth Status 12/29/24 18:14 Leg Left Gram Stain - Final Complete 12/29/24 18:14 Wound Culture - Final Stenotrophomonas maltophilia Klebsiella pneumoniae - ESBL Streptococcus Group G Complete 12/28/24 22:20 Voided Urine Urine Culture - Final Klebsiella pneumoniae - ESBL Staphylococcus aureus Complete 12/28/24 21:45 Blood Blood Culture - Final NO GROWTH AFTER 5 DAYS OF INCUBATION. Complete Labs and/or images reviewed: Labs reviewed by me, Image(s) reviewed by me Assessment/Plan Assessment/Plan History of Present Illness 79-year-old male presents for evaluation of altered mental status. Patient with a history of quadriplegia/bed ridden presents with a one day history of altered mental status. Per daughters at the bedside her mother's normally alert and oriented x4. She noted her becoming progressively more altered starting today in the morning. She reports recently finishing a course of antibiotics for a recurrent UTI. Past Medical History Hypertension, CHF, AFib, quadriplegic 12/29: Patient here with ALOC, patient is quadriplegic. Has leukocytosis with neutrophilia. Pending UA concerning for infection with leukocyte esterase, WBC. Urine bacterial culture pending. We will check TSH, ammonia,. CT head non-con showing left mastoid air cell effusion, bilateral TMJ arthrosis, diffuse cerebral loss volume, microvascular ischemia,. No acute hemorrhage or the other concerning findings. Patient having low-grade fevers., hypotensive. - patient is hypotensive, has CHF, echo 1 year ago EF 65, has diastolic dysfunction. Severe pulmonary hypertension. RVSP 53. - blood cultures pending, urine culture pending, on broad-spectrum antibiotics ertapenem. Initially received vanc Zosyn.. Continue p.o. medications. CTA abdomen - We will do trial of 250 bolus, repeat BNP and lactic to look for end-organ. Patient is on oxygen, unknown cause, no COPD history. Unknown reason. We will start midodrine and hydrocortisone injections and continue ertapenem, waiting for urine culture. If blood pressure does not improve with monitoring hydrocortisone and lactic is elevated, patient will need Levophed. 12/30: Blood pressure better with hydrocortisone and midodrine. We will continue hydrocortisone for 4 more days. Pending urine culture. Patient is A&O x4. Patient is bradycardic in 50s but asymptomatic. Continue broad-spectrum antibiotic, pending urine culture, patient has chronic Jacobo, this is likely complicated UTI due to Jacobo. 12/31: Urine culture still pending, we will contact lab for update. Patient apparently uses oxygen concentrator at home currently on 3 L nasal cannula. We will start incentive spirometer to see if can wean off oxygen. Otherwise pending for urine culture to see if patient needs IV or p.o. home antibiotics. Patient's blood pressure has been good since starting home midodrine. Urine Jacobo with significant urine output. We will convert hydrocortisone to p.o. 100 b.i.d.. To be given for next 2 days. -urine culture returns with Klebsiella ESBL, patient on ertapenem. Also with staph aureus patient is started on Unasyn, also with stenotrophomonas, patient is started on p.o. Bactrim. - can likely discharge patient on ertapenem and Bactrim for 10 days. We will start midline and social orders for antibiotics. 01/02: Patient discharged yesterday. See 01/01 discharge summary for updates. Continue with discharge plan. Patient is stable. Still needs portable oxygen concentrator delivered from home to continue 2 L home oxygen. Otherwise resume discharge plan. Sitter at bedside. 01/03: Oxygen to be delivered today, Continuing discharge plan Assessment: Metabolic encephalopathy Recurrent UTI Quadriplegia Acute kidney injury Leukocytosis Plan: Ertapenem IV bactrim ds bid Wound consult Resume home medications: Amiodarone, aspirin, Lipitor, furosemide,. Continue treatment per orders. Tele Full code Plan discussed with: Patient My Orders Orders - CHRIS PIERSON MD Procedure Category Date Status Time Abg W/ Co-Ox RT 01/02/25 Logged 17:25 Abg W/ Co-Ox RT 01/02/25 Logged 18:00 Oxygen By Nasal RT 01/02/25 Transmitted Cannula 18:38 * Exhaust Emissions [employer]ician CONS 01/03/25 Transmitted Consult Discharge DISCHARGE 01/03/25 Transmitted 13:01 Date of Service: Jan 03, 2025 Billing Provider: CHRIS PIERSON MD Common Visit Codes: [id number] INP/OBS CARE(MOD) CHRIS PIERSON MD Jan 03, 2025 13:03
[2025-01-03] MEDS: POTASSIUM EFFERVESENT TAB 25 MEQ PO ONE (15:05)
[2025-01-03] MEDS: POTASSIUM CHL 20MEQ/100ML 100 ML IV ONE (15:06)
[2025-01-03 17:00] VITALS: BP 95/52; PULSE 56; RESP 17; TEMP 97.5; O2SAT 96
--- NOTE | 2025-01-10 06:48 | ECG ---
[facility] Test Date: 2024-12-28 Test Time: 22:29:14 Pat Name: KASSI HAM Department: [facility] ED Patient ID: [id number] Room: 0202T A Gender: F Outreach Liaison: ALESSIA : 1945 Requested By: KENJI ARAUJO Order Number: [id number] Reading MD: Leon Mason Measurements Intervals [place] Rate: 99 P: 114 [place]: 161 QRS: 148 QRSD: 101 T: 217 QT: 357 QTc: 459 Interpretive Statements Sinus tachycardia Ventricular trigeminy Probable RVH w/ secondary repol abnormality Repol abnrm suggests ischemia, diffuse leads Artifact in lead(s) I,II,III,aVR,aVL Electronically Signed On 01-10-2025 17:32:18 PST by Leon Mason Please click the below link to view image of tracing.
== END 2025-01-03 20:05 | disposition home health service (06) | DRG 698 ==
LOC: ER 20:55 → EDBD 20:55 → OVERFLOW 12-29 00:30 → WEST WING 12-29 02:12 → TELE-WESTW 12-29 16:16 → TELE-CENTR 12-31 22:55
PROVIDERS: ADMIT Student in an Organized Health Care Education/Training Program; ATTEND Student in an Organized Health Care Education/Training Program
PROC: 05H933Z Insertion of Infusion Device into Right Brachial Vein, Percutaneous Approach (ICD-10-PCS; principal; 2025-01-01)
PROC: B54MZZA Ultrasonography of Right Upper Extremity Veins, Guidance (ICD-10-PCS; 2025-01-01)
DX: T83.511A Infection and inflammatory reaction due to indwelling urethral catheter, initial encounter (principal); A41.9 Sepsis, unspecified organism; G93.41 Metabolic encephalopathy; R53.2 Functional quadriplegia; I50.32 Chronic diastolic (congestive) heart failure; I13.0 Hypertensive heart and chronic kidney disease with heart failure and stage 1 through stage 4 chronic kidney disease, or unspecified chronic kidney disease; I27.20 Pulmonary hypertension, unspecified; N17.9 Acute kidney failure, unspecified; N39.0 Urinary tract infection, site not specified; B96.1 Klebsiella pneumoniae [K. pneumoniae] as the cause of diseases classified elsewhere; B95.4 Other streptococcus as the cause of diseases classified elsewhere; B95.8 Unspecified staphylococcus as the cause of diseases classified elsewhere; Z16.24 Resistance to multiple antibiotics; I48.91 Unspecified atrial fibrillation; E86.0 Dehydration; E87.6 Hypokalemia; Z74.01 Bed confinement status; Y84.6 Urinary catheterization as the cause of abnormal reaction of the patient, or of later complication, without mention of misadventure at the time of the procedure; Y92.89 Other specified places as the place of occurrence of the external cause; Z87.440 Personal history of urinary (tract) infections; Z79.899 Other long term (current) drug therapy; Z79.82 Long term (current) use of aspirin; N18.2 Chronic kidney disease, stage 2 (mild)
CPT/HCPCS: 36415; 36600; 70450; 71045; 74176; 80048; 80053; 81001; 82805; 83605; 83735; 84484; 85007; 85025; 85027; 85610; 85730; 87040; 87077; 87081; 87086; 87088; 87186; 87205; 93005; 96365; 96367; 99291; G0378; J2543; J3480